=== PATIENT | male | born 1940 | race Caucasian/White ===

== ENCOUNTER 2023-05-19 00:12 | Inpatient (IN) | payer MEDICARE, OTHER, SELFPAY ==
[2023-05-19] VITALS (10 sets, daily range): BP systolic 108–132; BP diastolic 44–99; PULSE 67–112; RESP 16–24; TEMP 36.5–38.3; O2SAT 94–98; BMI 25.8; BMI 25.5
--- NOTE | 2023-05-19 00:13 | XR_ITS ---
PROCEDURE INFORMATION: Exam: XR Abdomen Exam date and time: 05/19/2023 12:48 AM Age: 82 years old Clinical indication: Other: AMS, hematemesis TECHNIQUE: Imaging protocol: Radiologic exam of the abdomen. Views: Frontal supine view of the abdomen. 1 View. COMPARISON: No relevant prior studies available. FINDINGS: Gastrointestinal tract: Gas-filled and mildly dilated segments of small bowel. Bones/joints: Unremarkable. IMPRESSION: Gas-filled and mildly dilated segments of small bowel. Partial small bowel obstruction versus ileus would be most likely.
--- NOTE | 2023-05-19 00:13 | XR_ITS ---
PROCEDURE INFORMATION: Exam: XR Chest Exam date and time: 05/19/2023 12:48 AM Age: 82 years old Clinical indication: Other: Hematemesis TECHNIQUE: Imaging protocol: Radiologic exam of the chest. Views: 1 view. COMPARISON: No relevant prior studies available. FINDINGS: Lungs: Low lung volumes with associated vascular crowding and bibasilar atelectasis. Left lower lung opacities could represent atelectasis superimposed with either aspiration or infection. Pleural spaces: Unremarkable. No pleural effusion. No pneumothorax. Heart/Mediastinum: Unremarkable. No cardiomegaly. Vasculature: Vascular calcifications. Bones/joints: Old left rib fractures. IMPRESSION: Left lower lung opacities could represent atelectasis superimposed with either aspiration or infection. Consider 6 week follow-up standing PA and lateral chest radiographs to confirm resolution.
[2023-05-19 00:26] LABS: Basophils % 0.2 % (0.1-2.0); Eosinophils % 0.3 % (0.1-12.0); Hematocrit 36.1 % (42.0-52.0); Hemoglobin 11.9 g/dL (14.1-18.0); Lymphocytes # 1.2 K/mm3 (0.7-4.5); Mean Corpuscular Hemoglobin 31.7 pg (27.0-31.2); Mean Corpuscular Volume 96.3 fl (80-94); Mean Platelet Volume 8.6 fl (7.4-10.4); Monocytes # 0.4 K/mm3 (0.1-1.0); Monocytes % 4.2 % (1.7-9.3); Neutrophils # 7.2 K/mm3 (1.8-7.8); Neutrophils % 81.4 % (37.0-80.0); Platelet Count 205 K/mm3 (142-424); Red Blood Count 3.75 M/mm3 (4.60-6.20); Red Cell Distribution Width 16.5 % (11.5-17.5); White Blood Count 8.9 K/mm3 (4.8-10.8)
[2023-05-19 00:28] LABS: Chloride 107 mmol/L (98-107); Potassium 3.4 mmoL/L (3.5-5.1); Sodium 138 mmol/L (136-145)
[2023-05-19 00:30] LABS: Blood Urea Nitrogen 8 mg/dl (9-20); Creatinine Clearance Estimated 67 mL/min (50-200); Estimated Glomerular Filt Rate 81 ml/min (>60); GFR (African American) 98 ML/MIN (>60)
[2023-05-19 00:31] LABS: Alanine Aminotransferase 28 U/L (12-78); Albumin Level 2.6 g/dl (3.5-5.0); Albumin/Globulin Ratio 0.7 (1.1-1.8); Alkaline Phosphatase 116 U/L (38-126); Anion Gap 10.4 mEq/L (5-15); Aspartate Amino Transferase 37 U/L (17-59); Bilirubin,Total 0.4 mg/dl (0.2-1.3); Calcium 7.5 mg/dl (8.4-10.2); Carbon Dioxide 24 mmol/L (22.0-30.0); Globulin 3.5 g/dL (1.3-3.2); Glucose 157 mg/dl (74-100); Total Protein,Serum 6.1 g/dl (6.3-8.2)
[2023-05-19 00:33] LABS: Activated Partial Thrombo Time 24.9 seconds (22.8-30.6); Lipase 142 U/L (23-300); Magnesium 1.7 mg/dl (1.6-2.3)
[2023-05-19 00:34] LABS: Lactic Acid 4.8 mmol/L (0.7-2.1)
[2023-05-19 00:36] LABS: Acetone, Serum (Rapid) None Detected (None Detect)
--- NOTE | 2023-05-19 00:37 | PC.NURSE ---
Reported critical lab Lactate 4.8 to at this time.
--- NOTE | 2023-05-19 00:38 | CT_ITS ---
PROCEDURE INFORMATION: Exam: CT Head Without Contrast Exam date and time: 05/19/2023 1:05 AM Age: 82 years old Clinical indication: Altered mental status/memory loss; Additional info: AMS TECHNIQUE: Imaging protocol: Computed tomography of the head without contrast. Radiation optimization: All CT scans at this facility use at least one of these dose optimization techniques: automated exposure control; mA and/or kV adjustment per patient size (includes targeted exams where dose is matched to clinical indication); or iterative reconstruction. REPORTING DATA: Count of CT and Cardiac NM exams in prior 12 months: This patient has received 0 known CTs and 0 known cardiac nuclear medicine studies in the 12 months prior to the current study. COMPARISON: No relevant prior studies available. FINDINGS: Brain: Moderate chronic brain volume loss and chronic small vessel ischemic changes. Bilateral basal ganglia calcifications. Cerebral ventricles: No ventriculomegaly. Paranasal sinuses: Visualized sinuses are unremarkable. No fluid levels. Mastoid air cells: Moderate-sized left mastoid effusion. Bones/joints: Unremarkable. No acute fracture. Soft tissues: Unremarkable. IMPRESSION: No acute intracranial findings. If there is high clinical concern for acute infarction, consider MRI for further evaluation. ASSESSMENT: ASPECTS score ([place] Stroke Program Early CT Score) is 10.
--- NOTE | 2023-05-19 00:38 | CT_ITS ---
PROCEDURE INFORMATION: Exam: CTA Chest With Contrast Exam date and time: 05/19/2023 1:09 AM Age: 82 years old Clinical indication: Other: Hematemesis; Sternal or substernal pain; Additional info: Chest pain, hematemesis TECHNIQUE: Imaging protocol: Computed tomographic angiography of the chest with contrast. Exam focused on the arteries. 3D rendering (Not supervised by radiologist): MIP and/or 3D reconstructed images were created by the technologist. Radiation optimization: All CT scans at this facility use at least one of these dose optimization techniques: automated exposure control; mA and/or kV adjustment per patient size (includes targeted exams where dose is matched to clinical indication); or iterative reconstruction. Contrast material: ISOVUE; Contrast volume: 100 ml; Contrast route: INTRAVENOUS (IV); REPORTING DATA: Count of CT and Cardiac NM exams in prior 12 months: This patient has received 0 known CTs and 0 known cardiac nuclear medicine studies in the 12 months prior to the current study. COMPARISON: CR XR CHEST PORTABLE 08/28/2022 00:48 FINDINGS: Tubes, catheters and devices: Urinary bladder is catheterized. Pulmonary arteries: Normal. No pulmonary emboli. Aorta: Unremarkable. No aortic aneurysm. No aortic dissection. Renal arteries: [id number] stenosis of the proximal renal arteries. Lungs: Unremarkable. No consolidation. No masses. Pleural spaces: Unremarkable. No pneumothorax. No pleural effusion. Heart: Unremarkable. No cardiomegaly. No pericardial effusion. Lymph nodes: Unremarkable. No enlarged lymph nodes. Adrenal glands: There is a 1.8 cm left adrenal nodule that cannot be classified as a lipid rich adenoma on this examination. Kidneys and ureters: Low attenuation renal lesions measuring up to 2 cm in diameter are incompletely characterized, but are likely cysts. No followup imaging is warranted. Stomach and bowel: Moderate sigmoid diverticulosis without diverticulitis. Appendix: Unremarkable appendix. Reproductive: Mild prostate enlargement Bones/joints: Unremarkable. No acute fracture. Soft tissues: [id number] anasarca. Other findings: Please see separate report for CT chest. IMPRESSION: 1. There is no extravasated contrast in the lumen of bowel to identify the source of GI bleed. 2. Moderate sigmoid diverticulosis without diverticulitis. 3. Urinary bladder is catheterized. Please exclude infection clinically. 4. There is a 1.8 cm left adrenal nodule that cannot be classified as a lipid rich adenoma on this examination. Consider 12 month follow-up adrenal CT. (Reference: Tl) COMMENTS: Consistent with the [employer]'s Incidental Findings Committee white paper (J Am Tl Radiol 2018): Any incidental renal lesion less than 1 cm or classified as too small to characterize, or any incidental cystic renal lesion characterized as simple-appearing, is likely benign. No follow-up imaging is recommended for these lesions per consensus recommendations based on imaging criteria. REFERENCES: Tl VELAZQUEZ, et al. Management of Incidental Adrenal Masses: A White Paper of the ACR Incidental Findings Committee. J Am Tl Radiol. 2017;14(8):8380-2632.
--- NOTE | 2023-05-19 00:39 | CT_ITS ---
PROCEDURE INFORMATION: Exam: CTA Abdomen and Pelvis With Contrast Exam date and time: 05/19/2023 1:09 AM Age: 82 years old Clinical indication: Pain and abnormal findings; Abnormal lab test; Other: Elevated lactate; Abdominal pain; Generalized; Additional info: Abd pain, hematemesis, elevated lactate TECHNIQUE: Imaging protocol: Computed tomographic angiography of the abdomen and pelvis with contrast. Exam focused on the arteries. 3D rendering (Not supervised by radiologist): MIP and/or 3D reconstructed images were created by the technologist. Radiation optimization: All CT scans at this facility use at least one of these dose optimization techniques: automated exposure control; mA and/or kV adjustment per patient size (includes targeted exams where dose is matched to clinical indication); or iterative reconstruction. Contrast material: ISOVUE; Contrast volume: 100 ml; Contrast route: INTRAVENOUS (IV); REPORTING DATA: Count of CT and Cardiac NM exams in prior 12 months: This patient has received 0 known CTs and 0 known cardiac nuclear medicine studies in the 12 months prior to the current study. COMPARISON: CR XR KUB 08/28/2022 00:48 FINDINGS: Lungs: Bilateral apical scarring. Mild scarring and atelectasis in the lower lungs. Pleural spaces: Small pleural effusions. Coronary arteries: Moderate to severe coronary arterial calcification, indicating the presence of coronary artery disease. Mediastinal space: Bowel wall thickening of the esophagus. Pulmonary arteries: No pulmonary emboli. Aorta: The aorta demonstrates severe atherosclerotic disease. Celiac trunk and mesenteric arteries: No occlusion or significant stenosis. Renal arteries: No occlusion or significant stenosis. Right iliac arteries: No occlusion or significant stenosis. Left iliac arteries: No occlusion or significant stenosis. Liver: No mass. Gallbladder and bile ducts: Unremarkable. No calcified stones. No ductal dilation. Pancreas: Unremarkable. No mass. No ductal dilation. Spleen: Unremarkable. No splenomegaly. Adrenal glands: Unremarkable. No mass. Kidneys and ureters: Unremarkable. No solid mass. No hydronephrosis. Stomach and bowel: See Mediastinal space finding. Appendix: No evidence of appendicitis. Intraperitoneal space: Unremarkable. No free air. No significant fluid collection. Lymph nodes: Unremarkable. No enlarged lymph nodes. Urinary bladder: Unremarkable. No mass. Reproductive: Unremarkable as visualized. Bones/joints: No acute fracture. Soft tissues: Unremarkable. Other findings: Stigmata of old granulomatous disease. IMPRESSION: 1. No pulmonary emboli. 2. Bowel wall thickening of the esophagus. Please correlate for evidence of esophagitis. Consider endoscopy to exclude malignancy as clinically warranted. 3. Small pleural effusions. 4. Moderate to severe coronary arterial calcification, indicating the presence of coronary artery disease. If the patient has associated symptoms, recommend management as per chest pain guidelines. If the patient is asymptomatic, consider reviewing modifiable cardiovascular risk factors and managing as per guidelines for primary prevention.
[2023-05-19 00:43] LABS: INR 1.17 (0.9-1.1); Prothrombin Time 12.5 seconds (10.1-12.5)
[2023-05-19 00:48] LABS: Troponin I 0.01 ng/ml (0.00-0.034)
[2023-05-19 00:49] LABS: T4 (Thyroxine) 11.5 ug/dl (5.53-11.0)
[2023-05-19 00:53] LABS: VBG Base Excess -7.8 mmol/L (-2.4-2.3); VBG HCO3 18.5 mmol/L (23-30); VBG Oxygen Saturation 59.1 % (50-70); VBG PCO2 37.9 mmol/L (35-51); VBG PH 7.31 mmol/L (7.31-7.41); VBG PO2 34.4 mmol/L (28-40); VBG Total CO2 19.7 mmol/L (23-27)
--- NOTE | 2023-05-19 00:55 | HMH.EDGENADL ---
Discharge Plan Disposition Patient Disposition: Admitted Clinical Impressions Clinical Impression: Metabolic acidosis with respiratory alkalosis, Elevated lactic acid level, Increased nausea and vomiting, Constipation, chronic, Enlarged prostate with urinary retention, A-fib Discharge ED Provider: Ang Trinidad General Adult HPI General Chief complaint: Nausea/Vomiting/Diarrhea Stated complaint: Vomiting Time Seen by Provider: 05/19/23 00:13 Mode of Arrival: EMS Source of Information: EMS Limitations: Altered Mental Status Description of Symptoms (Recalled from ER Triage Doc. by RN): EMS advised that pt was sent from home (previously in senior living) r/t dark colored emesis, onset today History of Present Illness HPI narrative: 82-year-old female, reported history of dementia, prostate problems with chronic Sigala last changed last week, hypothyroidism, recent admissions to outside facilities for GI bleed (scoped 2 weeks ago with no apparent source), anemia, hypernatremia, volume overload presents for dark vomitus. History obtained from patient's son and [id number]. Patient is at baseline per them, but is unable to answer any questions. They report that he actually looks better now from a mental status standpoint than he did when they got him because they have significantly cut back on his sedatives and antipsychotics. He has resided in a nursing facility since February of this year in [facility]. They were out of contact with him until recently. When they found the state he was in, they elected to take him back to their house after he was released from [facility] on of last week. He has been here in [facility] for 1 week. They are working to establish PCP care. Tonight, the patient apparently complained of indigestion and was noted to have vomiting of brown emesis. Patient is only had 1 bowel movement in the last week, it was a small smear, dark in color. Family reports that the patient's lower extremity edema has significantly improved in the last week. Failure reports that during most of his life he refused to go to the doctor. He was ambulatory as recently as february, but is no longer ambulatory. As far family are aware, they were unable to find a source of his bleeding at [facility] in the last couple of weeks, he required multiple transfusions during that time. He was also treated for hypernatremia during that admission. They report the patient had a fever of 101 on [place], 5 days ago, but resolved with Tylenol and has not recurred. Related Data Home Medications Medication Instructions Recorded Confirmed acetaminophen 500 mg tablet 500 mg PO Q6H PRN Pain 05/19/23 05/19/23 divalproex 500 mg tablet,extended 500 mg PO DAILY 05/19/23 05/19/23 release 24 hr docusate sodium 100 mg capsule 100 mg PO BID 05/19/23 05/19/23 doxazosin 4 mg tablet 4 mg PO HS 05/19/23 05/19/23 finasteride 5 mg tablet 5 mg PO DAILY 05/19/23 05/19/23 lactulose 20 gram/30 mL oral 20 g PO BID 05/19/23 05/19/23 solution levothyroxine 50 mcg tablet 50 mcg PO DAILY 05/19/23 05/19/23 lisinopril 20 mg tablet 20 mg PO DAILY 05/19/23 05/19/23 lisinopril 5 mg tablet 5 mg PO DAILY 05/19/23 05/19/23 megestrol 400 mg/10 mL (10 mL) 400 mg PO DAILY 05/19/23 05/19/23 oral suspension melatonin 3 mg capsule 3 mg PO HS PRN Insomnia 05/19/23 05/19/23 memantine 10 mg tablet 10 mg PO BID 05/19/23 05/19/23 mirtazapine 15 mg disintegrating 15 mg PO HS 05/19/23 05/19/23 tablet oxybutynin chloride 5 mg tablet 5 mg PO DAILY 05/19/23 05/19/23 pantoprazole 20 mg tablet,delayed 20 mg PO DAILY 05/19/23 05/19/23 release quetiapine 25 mg tablet 25 mg PO HS 05/19/23 05/19/23 risperidone 1 mg tablet 1 mg PO BID 05/19/23 05/19/23 rosuvastatin 10 mg tablet 10 mg PO DAILY 05/19/23 05/19/23 simethicone 80 mg chewable tablet 80 mg PO HS 05/19/23 05/19/23 Allergies Allergy/AdvReac Type Severity Reaction Status Date / Time No Known Drug Allergies Allergy
[2023-05-19 01:02] LABS: Thyroid Stimulating Hormone 7.94 uIU/mL (0.465-4.68)
--- NOTE | 2023-05-19 01:07 | PC.NURSE ---
pt to CT
--- NOTE | 2023-05-19 01:13 | PC.NURSE ---
called Jarett [facility] to attempt to get records from recent inpatient admission
--- NOTE | 2023-05-19 01:14 | PC.NURSE ---
Faxed medical release to corwin [facility]
--- NOTE | 2023-05-19 01:16 | PC.NURSE ---
pt returned from ct
--- NOTE | 2023-05-19 01:19 | ECG_ITS ---
APPROVED REPORT Exam: Resting ECG HR:93 bpm ECG Measurements Heart Rate 93 AXES QRSd 148 QRS 138 QT 348 T 160 QTc 399 Conclusion UNCERTAIN IRREGULAR RHYTHM with marked artifact ABNORMAL ECG UNCONFIRMED REPORT Electronically signed by : Prashant Ovalle MD 05/19/2023 21:38:54
--- NOTE | 2023-05-19 01:23 | ECG_ITS ---
APPROVED REPORT Exam: Resting ECG HR:102 bpm ECG Measurements Heart Rate 102 AXES QRSd 89 QRS 62 QT 300 T 77 QTc 359 Conclusion Uncertain rhythm given severe artifact UNCONFIRMED REPORT Electronically signed by : Prashant Ovalle MD 05/19/2023 21:38:18
--- NOTE | 2023-05-19 02:06 | PC.NURSE ---
on phone with hospitalist
--- NOTE | 2023-05-19 02:11 | PC.NURSE ---
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
--- NOTE | 2023-05-19 02:15 | PC.NURSE ---
OBSERVATION ADMISSION TO 212 TO SERVICE OF HOSPITALIST WITH DX OF N/V AND LACTIC ACIDOSIS.
--- NOTE | 2023-05-19 02:59 | PC.NURSE ---
pt arrived to floor via stretcher @2:55AM
--- NOTE | 2023-05-19 03:04 | EXP.HP ---
History of Present Illness *Admission Date: 05/19/23 *Reason for visit:: esophagitis *History of present illness: 82 year old male presented to [facility] ED via family for c/o dark brown vomit that started last night. PMHX of BPH, constipation, hld, htn, hypothyroidism, dementia, and recent GI bleed 2 weeks prior at [facility]. Daughter in law at bedside and states he was dx from the hospital s/p endoscope with a hemoglobin of 8. The Daughter in law and Son took pt from hospital and brought to their home were he has been cared for by the daughter. Prior to his hospitalization at [facility] the pt was in a half-way. The family has no interest in pt returning to a half-way. The ED work up consisted of hypokalemia of 3.4, BUN of 8, lactate of 4.8, and TSH of 7.94. A CT of his abdomen was obtained in the ED and reveals thickening in the esophagus and sigmoid diverticulosis. no free air or other abnormalities in the abd. The ED physician consulted the hospitalist team for further medical management. I admitted the pt to the medical surgical floor. The pt arrives confused and still spitting up dark secretions. The pt is not febrile, or demonstrate a luekocyotsis. Will repeat lactate and provide gentle hydration. I have placed a general surgery consult for the morning. [facility] Disclaimer: The information contained in this section may have been updated after the patient was seen, as this information can be updated by other users. Medical History (Updated 05/19/23 @ 03:40 by DIYA Nichole) Chronic indwelling Sigala catheter Impaired mobility Social History (Updated 05/19/23 @ 03:34 by Dunia Saunders RN) Smoking Status: Never smoker alcohol intake: never current occupational status: retired Travel in the last 8 weeks: None Review of Systems *Cardiovascular Cardiovascular: Reports system reviewed and no additional complaints, except as documented *Respiratory Respiratory: Reports system reviewed and no additional complaints, except as documented *Gastrointestinal Gastrointestinal: Reports coffee ground emesis and Reports vomiting *Genitourinary Genitourinary: Reports difficulty with ejaculations *Musculoskeletal Musculoskeletal: Reports system reviewed and no additional complaints, except as documented *Neurologic Neurologic: Reports system reviewed and no additional complaints, except as documented Meds Home Medications and Allergies Home Medications Medication Instructions Recorded Confirmed Type acetaminophen 500 mg tablet 500 mg PO Q6H PRN Pain 05/19/23 05/19/23 History bisacodyl 5 mg tablet,delayed 5 mg PO DAILY PRN Constipation 05/19/23 05/19/23 History release divalproex 500 mg tablet,extended 500 mg PO BID 05/19/23 05/19/23 History release 24 hr docusate sodium 100 mg capsule 100 mg PO BID PRN Constipation 05/19/23 05/19/23 History doxazosin 4 mg tablet 4 mg PO HS 05/19/23 05/19/23 History finasteride 5 mg tablet 5 mg PO DAILY 05/19/23 05/19/23 History lactulose 20 gram/30 mL oral 20 g PO DAILY 05/19/23 05/19/23 History solution levothyroxine 50 mcg tablet 50 mcg PO DAILY 05/19/23 05/19/23 History lisinopril 20 mg tablet 20 mg PO DAILY 05/19/23 05/19/23 History megestrol 400 mg/10 mL (10 mL) 400 mg PO BID malnutrition 05/19/23 05/19/23 History oral suspension melatonin 3 mg capsule 3 mg PO HS Insomnia 05/19/23 05/19/23 History memantine 10 mg tablet 10 mg PO BID 05/19/23 05/19/23 History mirtazapine 15 mg disintegrating 15 mg PO HS 05/19/23 05/19/23 History tablet oxybutynin chloride 5 mg tablet 5 mg PO DAILY 05/19/23 05/19/23 History pantoprazole 20 mg tablet,delayed 20 mg PO DAILY 05/19/23 05/19/23 History release quetiapine 25 mg tablet 25 mg PO HS 05/19/23 05/19/23 History rosuvastatin 10 mg tablet 10 mg PO DAILY 05/19/23 05/19/23 History sennosides 8.6 mg tablet 8.6 mg PO BID PRN Constipation 05/19/23 05/19/23 History simethicone 80 mg chewable tablet 80 mg PO QID PRN indeg
--- NOTE | 2023-05-19 03:58 | PC.WOUNDNOTE ---
Stage 1 noted on coccyx. Measured to be approximately 0.4cm in circumference. Prophylactic dressing applied to prevent further breakdown
[2023-05-19 04:01] LABS: Reflex Lactic Add Lactic Reflex
[2023-05-19 04:06] LABS: Basophils % 0.2 % (0.1-2.0); Eosinophils # 0.1 K/mm3 (0.0-0.4); Eosinophils % 1.2 % (0.1-12.0); Hematocrit 31.9 % (42.0-52.0); Lymphocytes # 1.2 K/mm3 (0.7-4.5); Lymphocytes % 12.7 % (10-50); Mean Corpuscular HGB Conc 32.6 g/dL (31.8-35.4); Mean Corpuscular Volume 95.1 fl (80-94); Mean Platelet Volume 8.9 fl (7.4-10.4); Monocytes # 0.6 K/mm3 (0.1-1.0); Monocytes % 6.7 % (1.7-9.3); Neutrophils # 7.2 K/mm3 (1.8-7.8); Neutrophils % 79.2 % (37.0-80.0); Platelet Count 181 K/mm3 (142-424); Red Blood Count 3.36 M/mm3 (4.60-6.20); Red Cell Distribution Width 16.3 % (11.5-17.5); White Blood Count 9.1 K/mm3 (4.8-10.8)
[2023-05-19 04:15] LABS: Hemoglobin 10.4 g/dL (14.1-18.0)
[2023-05-19 04:16] LABS: Chloride 110 mmol/L (98-107)
[2023-05-19 04:17] LABS: Lactic Acid Follow Up (RFLX 1) 5.3 mmol/L (0.7-2.1); Potassium 3.4 mmoL/L (3.5-5.1); Sodium 137 mmol/L (136-145)
[2023-05-19 04:20] LABS: Anion Gap 11.4 mEq/L (5-15); Blood Urea Nitrogen 9 mg/dl (9-20); Calcium 7.3 mg/dl (8.4-10.2); Carbon Dioxide 19 mmol/L (22.0-30.0); Creatinine Clearance Estimated 66 mL/min (50-200); Estimated Glomerular Filt Rate 81 ml/min (>60); GFR (African American) 98 ML/MIN (>60); Glucose 140 mg/dl (74-100)
[2023-05-19 04:30] LABS: Microscopic, Urine URINE MICROSCOPIC (MICROSCOPIC)
[2023-05-19 04:37] LABS: Troponin I < 0.01 ng/ml (0.00-0.034)
[2023-05-19 04:44] LABS: Appearance,Urine CLEAR (Clear); Blood, Urine Negative (Negative); Color,Urine YELLOW (Yellow); Glucose,Urine (UA) Negative (Negative); Ketones,Urine Negative (Negative); Leukocyte Esterase,Urine Negative (Negative); Nitrate,Urine Negative (Negative); PH,Urine 6.5 (5.0-8.5); Protein,Urine TRACE (Negative); Specific Gravity, Urine <= 1.005 (1.005-1.030); Urobilinogen,Urine >=8.0 EU/dl (0.2)
[2023-05-19 04:45] LABS: Bilirubin,Urine Negative (Negative)
[2023-05-19 04:59] LABS: Bacteria,Urine 1+ /lpf
[2023-05-19 06:25] LABS: Basophils % 0.2 % (0.1-2.0); Eosinophils # 0.1 K/mm3 (0.0-0.4); Eosinophils % 0.8 % (0.1-12.0); Hematocrit 29.5 % (42.0-52.0); Hemoglobin 9.9 g/dL (14.1-18.0); Lymphocytes % 21.5 % (10-50); Mean Corpuscular HGB Conc 33.6 g/dL (31.8-35.4); Mean Corpuscular Volume 95.3 fl (80-94); Mean Platelet Volume 8.5 fl (7.4-10.4); Monocytes # 0.5 K/mm3 (0.1-1.0); Monocytes % 5.7 % (1.7-9.3); Neutrophils # 6.8 K/mm3 (1.8-7.8); Neutrophils % 71.8 % (37.0-80.0); Platelet Count 184 K/mm3 (142-424); Red Cell Distribution Width 16.5 % (11.5-17.5); White Blood Count 9.4 K/mm3 (4.8-10.8)
[2023-05-19 06:34] LABS: Lactic Acid 3.6 mmol/L (0.7-2.1)
--- NOTE | 2023-05-19 07:42 | P.CONPHA_ITS ---
Pharmacy Intervention Comments: USED LIST FROM [facility] VISIT ON 05/12/23 TO VERIFY HOME MEDICAITON LIST
--- NOTE | 2023-05-19 07:42 | HMH.PHAINT1 ---
Pharmacy Intervention Comments: USED LIST FROM [facility] VISIT ON 05/12/23 TO VERIFY HOME MEDICAITON LIST
--- NOTE | 2023-05-19 10:54 | HMH.PTWOUND ---
Rehab Inpt Wound Evaluation Rehab IP Wound Evaluation Start: 05/19/23 04:44 Freq: ONCE Status: Active Protocol: Document 05/19/23 10:49 JACKELINE (Rec: 05/19/23 10:53 PHOSTEFFANIE [id number]) Rehab PT Wound Assessment Subjective Subjective 82 yowm adm to [facility] with nausea /vomiting and lactic acidosis. PMHX of BPH, constipation, hld, htn, hypothyroidism, dementia, and recent GI bleed. 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 He also presents with small area of redness on his R buttock in the area of the sacrum. Wound Sacrum Wound Type Pressure Ulcer Is This a Chronic Wound Yes Wound Staging Stage I Query Text:Stage I - Unbroken, red skin, no blanching. Stage II - Skin broken, superficial skin loss involving epidermis alone or also dermis. Partial loss of skin layers. Stage III - Pressure area involves epidermis, dermis and subcutaneous tissue, full thickness skin loss. Stage IV - Pressure area involves epidermis, subcutaneous tissue, bone and other supportive tissue. Full thickness skin loss with extensive destruction of underlying tissue and structures. Wound Length (cm) 0.5 Wound Width (cm) 0.5 Wound Margins Description Indistinct Drainage Amount None Primary Dressing Composite Plan/Recommendation Comment Pt has no open skin at this time and area is covered appropriately. Continue pressure relief per protocols. Eval Complexity Eval Charge Codes 23068 - High Complexity PHYSICIAN CERTIFICATION: I certify the specified therapy services for Kevin Howard are required, authorized, and reviewed every 30 days.
--- NOTE | 2023-05-19 10:57 | HMH.OTEV ---
OT Inpatient Evaluation Rehab OT IP Evaluation Start: 05/19/23 10:21 Freq: ONCE Status: Active Protocol: Document [facility]/19/23 10:[facility] (Rec: 05/19/23 10:56 [facility] [id number]) Rehab OT IP Assessment Subjective History Pt resting in bed on arrival. Pt kept eyes closed during evaluation and would not answer any orientation questions. Therapist asked patient multiple times to open his eyes and he would reply yes but would not open them. All information about his previous level of functioning comes from ER reports. Family was not present to provide any information about previous level of functioning. ER documentation: 82-year-old female, reported history of dementia, prostate problems with chronic Sigala last changed last week, hypothyroidism, recent admissions to outside facilities for GI bleed ( scoped 2 weeks ago with no apparent source), anemia, hypernatremia, volume overload presents for dark vomitus. History obtained from patient' s son and [id number]. Patient is at baseline per them, but is unable to answer any questions. They report that he actually looks better now from a mental status standpoint than he did when they got him because they have significantly cut back on his sedatives and antipsychotics. He has resided in a nursing facility since February of this year in [facility]. They were out of contact with him until recently. When they found the state he was in, they elected to take him back to their house after he was released from [facility] on
--- NOTE | 2023-05-19 10:58 | HMH.PTEV ---
Physical Therapy Evaluation Rehab PT IP Evaluation Start: 05/19/23 10:21 Freq: ONCE Status: Active Protocol: Document 05/19/23 10:54 JACKELINE (Rec: 05/19/23 10:58 JACKELINE [id number]) Subjective/History History History 82 yowm adm to [facility] with nausea /vomiting and lactic acidosis. PMHX of BPH, constipation, hld, htn, hypothyroidism, dementia, and recent GI bleed. He is apparently bedfast at baseline and was in SN[facility] until ~ 1-2 wks ago. Subjective Subjective Pt does not open eyes during evaluation and shows minimal command following with limited speech. New diagnosis of cancer in past 12 No months? Rehab PT IP Eval Objective Appearance Patient Behavior Confused Difficulty following instructions severe Speech Pattern Clear Ambulation Patient Able to Ambulate No Balance Ability to Arise Unable Transfers Bed Transfer Ability Total/Dependent (100%) Rehab PT IP prob,goals,plan Problems Date of Evaluation: 05/19/23 PT IP Problems Bed Mobility,Transfers Rehab Potential Rehab Potential Fair Plan PT Intervention Plan Bed Mobility,Transfers, Therapeutic Exercise PT Plan Frequency Daily Duration LOS Discharge Goals Bed Transfer Ability Maximum x 2 (75% assist) Discharge Plan PT Discharge Plan Pt is currently most appropriate for [facility] SN[facility] placement once medically stable for d/c. However, if family wishes to return pt to their care at [facility] as previous he will need 24 hr assist at all times. Eval Complexity Eval Charge Codes 01105 - High Complexity PHYSICIAN CERTIFICATION: I certify the specified therapy services for Kevin Howard are required, authorized, and reviewed every 30 days.
--- NOTE | 2023-05-19 11:34 | SW/DCPLANNER ---
Addendum entered by Kendra Dutton 05/25/23 13:08: Delia w/ [facility] stated that services will begin for patient this week. Addendum entered by [facility] 05/25/23 10:07: Patient will discharge home today. Patient information/order will be faxed to [facility] and [facility] set up DME at home yesterday. Addendum entered by [facility] 05/24/23 14:55: Patient information/order has been faxed to [facility] for BSC, hospital bed and wheelchair. Addendum entered by [facility] 05/24/23 14:16: After lengthy discussion w/ MD, son and daughter in law the plan for this patient is to return home w/ family and home health services. Patient/family are agreeable to home health services w/ [facility]. Patient/family also requested DME at home including: hospital bed, wheelchair, bedside commode and possibly a lift. Patient/family are fine w/ using [facility] for DME. Once DME is ordered/set up the plan is for patient to discharge home. I will fax patient information to [facility] at time of discharge. Addendum entered by [facility] 05/24/23 14:11: Daughter in law (Sara) contact number is [phone] Addendum entered by Kendra Dutton 05/19/23 12:26: Son and daughter in law (Sara) called back to further discuss patient's situation. Per Sara patient was residing at [facility] since last February. Patient was recently admitted to [facility] and discharged from there on 05/12/23 to [facility] in [place]. Per Sara patient does have dementia but was doing well at home and able to communicate. Patient is established w/ [facility] [place]. Sara stated that the [facility] is in the process of ordering patient a hospital bed at home. [facility]bra's plans are for patient to discharge back to their home in [place] with home health services once medically stable for discharge. I have asked Family Law Attorney to please request records from [facility]. Discharge date is unknown at this time. I will continue to follow up. Original Note: Due to patient not being able to answer questions I attempted to get in contact w/ his son listed in demographics (Fer): no answer at this time/VM left.
--- NOTE | 2023-05-19 13:34 | EXP.SURG.CON ---
History of Present Illness *Admission Date: 05/19/23 *Reason for visit:: Esophagitis *History of present illness: Patient is an 82-year-old male resident of [facility] with reported history of dementia, previously retirement patient, recently admitted to outside facility on 04/27/23 through 05/04/23 after presentation with nausea, vomiting, coffee-ground hematemesis. At that time CT scan revealed mildly prominent small bowel with fluid consistent with ileus or partial bowel obstruction. It sounds as though during that admission there was consideration of possible gastrostomy tube placement as he had dysphagia and did not pass swallowing study. However this improved through his hospitalization and did not require gastrostomy tube. Apparently the patient did have some transfusion. He had been a resident in a retirement since February of this year in [facility] until this recent outside facility hospitalization. He had been discharged from outside facility and then readmitted shortly thereafter. Exact details of his hospitalizations are unclear after review of outside medical records however apparently he did undergo transfusion and possibly had upper endoscopy. Since discharge he has subsequently been residing with [facility]. Patient had developed symptoms of indigestion and vomiting of brown emesis. He presented to the emergency department. He was evaluated. He was found to have lactate of 4.8. He underwent CTA of the abdomen and pelvis which revealed no evidence of any active identifiable bleeding source. Patient was admitted to the hospitalist service. Surgical consultation was obtained this morning. Patient had reported prior history of tobacco abuse decades ago as well as heavy alcohol consumption. [facility] Disclaimer: The information contained in this section may have been updated after the patient was seen, as this information can be updated by other users. Medical History (Updated 05/19/23 @ 03:40 by DIYA Nichole) Chronic indwelling Sigala catheter Impaired mobility Social History (Updated 05/19/23 @ 03:34 by Dunia Saunders RN) Smoking Status: Never smoker alcohol intake: never current occupational status: retired Travel in the last 8 weeks: None Review of Systems *Neurologic Neurologic: Reports system reviewed and no additional complaints, except as documented Meds Home Medications and Allergies Home Medications Medication Instructions Recorded Confirmed Type acetaminophen 500 mg tablet 500 mg PO Q6HP PRN Mild Pain 05/19/23 05/19/23 History (Scale Score 1-4) bisacodyl 5 mg tablet,delayed 5 mg PO DAILYP PRN Constipation 05/19/23 05/19/23 History release divalproex 500 mg tablet,extended 500 mg PO BID 05/19/23 05/19/23 History release 24 hr docusate sodium 100 mg capsule 100 mg PO BIDP PRN Constipation 05/19/23 05/19/23 History doxazosin 4 mg tablet 4 mg PO HS 05/19/23 05/19/23 History finasteride 5 mg tablet 5 mg PO DAILY 05/19/23 05/19/23 History lactulose 20 gram/30 mL oral 10 g PO DAILYP PRN Constipation 05/19/23 05/19/23 History solution levothyroxine 50 mcg tablet 50 mcg PO DAILY 05/19/23 05/19/23 History lisinopril 20 mg tablet 20 mg PO DAILY 05/19/23 05/19/23 History megestrol 400 mg/10 mL (10 mL) 400 mg PO BID malnutrition 05/19/23 05/19/23 History oral suspension melatonin 3 mg capsule 6 mg PO HS Insomnia 05/19/23 05/19/23 History memantine 10 mg tablet 10 mg PO BID 05/19/23 05/19/23 History mirtazapine 15 mg tablet (Remeron) 15 mg PO HS 05/19/23 05/19/23 History oxybutynin chloride 5 mg tablet 5 mg PO DAILY 05/19/23 05/19/23 History pantoprazole 20 mg tablet,delayed 20 mg PO DAILY 05/19/23 05/19/23 History release quetiapine 25 mg tablet 25 mg PO HS 05/19/23 05/19/23 History risperidone 1 mg tablet (Risperdal) 1 mg PO BID 05/19/23 05/19/23 History rosuvastatin 10 mg tablet 10 mg PO DAILY 05/19/23 05/19/23 History sennosides 8.6 mg tablet 8.6 mg PO
--- NOTE | 2023-05-19 16:58 | PC.NURSE ---
Vancomycin pharmacy consult called at 0931.
--- NOTE | 2023-05-19 17:15 | XR_ITS ---
PROCEDURE INFORMATION: Exam: XR Chest Exam date and time: 05/19/2023 5:31 PM Age: 82 years old Clinical indication: Other: Pna? TECHNIQUE: Imaging protocol: Radiologic exam of the chest. Views: 1 view. COMPARISON: CR XR CHEST PORTABLE 05/19/2023 12:48 AM, chest CT angiogram 05/19/2023 at 1:12 a.m.. FINDINGS: Lungs: Low lung volumes. Pulmonary vasculature grossly normal. Mild airspace disease in the lung bases, left greater than right, probably representing atelectasis given the comparison chest CT angiogram appearance at 1:12 a.m. although can not exclude developing basilar pneumonia. Pleural spaces: Small left basilar pleural effusion with costophrenic angle blunting. The small right basilar effusion seen on recent CT is not well seen with current radiographic technique. No pneumothorax. Heart/Mediastinum: Heart size normal. No tracheal/mediastinal shift. Bones/joints: No acute osseous abnormalities are identified. IMPRESSION: 1. Low lung volumes with decreased pulmonary expansion compared to prior imaging. 2. Bilateral basilar airspace disease, left greater than right, which is stable to slightly increased. Favor basilar atelectasis based on the appearance on recent chest CT angiogram although developing pneumonia not excluded. 3. Small left basilar pleural effusion. Small right basilar pleural effusion seen on CT is not well demonstrated with current technique.
--- NOTE | 2023-05-19 18:53 | PC.NURSE ---
Patient has had no nausea or vomiting througout shift. Patient spiked fever of [address] Pinto informed. Abx ordered
[2023-05-20 04:00] VITALS: BP 113/45; PULSE 91; RESP 18; TEMP 36.7; O2SAT 96; BMI 25.5
--- NOTE | 2023-05-20 05:26 | PC.NURSE ---
Patient has had a goodn ight. Has been able to rest most of the night. Patient has been turned every 2 hours to help the stage 1 on his coccyx. remains with a the chronic chavez. Did have 1 BM last night. Patient has not been orientated at all tonight. no other issues noted
[2023-05-20 06:53] LABS: Basophils % 0.1 % (0.1-2.0); Eosinophils # 0.2 K/mm3 (0.0-0.4); Eosinophils % 2.6 % (0.1-12.0); Hemoglobin 8.6 g/dL (14.1-18.0); Lymphocytes # 2.2 K/mm3 (0.7-4.5); Mean Corpuscular HGB Conc 33.3 g/dL (31.8-35.4); Mean Corpuscular Hemoglobin 31.8 pg (27.0-31.2); Mean Corpuscular Volume 95.6 fl (80-94); Mean Platelet Volume 8.5 fl (7.4-10.4); Monocytes # 0.5 K/mm3 (0.1-1.0); Monocytes % 6.6 % (1.7-9.3); Neutrophils # 5.4 K/mm3 (1.8-7.8); Neutrophils % 64.7 % (37.0-80.0); Platelet Count 201 K/mm3 (142-424); Red Blood Count 2.72 M/mm3 (4.60-6.20); Red Cell Distribution Width 16.6 % (11.5-17.5); White Blood Count 8.3 K/mm3 (4.8-10.8)
[2023-05-20 07:06] LABS: Anion Gap 10.2 mEq/L (5-15); Blood Urea Nitrogen 11 mg/dl (9-20); Carbon Dioxide 20 mmol/L (22.0-30.0); Chloride 111 mmol/L (98-107); Creatinine Clearance Estimated 66 mL/min (50-200); Estimated Glomerular Filt Rate 81 ml/min (>60); GFR (African American) 98 ML/MIN (>60); Glucose 88 mg/dl (74-100); Potassium 3.2 mmoL/L (3.5-5.1); Sodium 138 mmol/L (136-145)
--- NOTE | 2023-05-20 07:51 | EXP.PHA.CONS ---
Pharmacy Consult Date: 05/20/23 Time: 07:53 Referring provider: DR TATE Reason for Consult:: VANCOMYCIN DOSING CONSULT Allergies Allergy/AdvReac Type Severity Reaction Status Date / Time No Known Drug Allergies Allergy Verified 05/19/23 00:42 Home Medications Medication Instructions Recorded Confirmed Type acetaminophen 500 mg tablet 500 mg PO Q6HP PRN Mild Pain 05/19/23 05/19/23 History (Scale Score 1-4) bisacodyl 5 mg tablet,delayed 5 mg PO DAILYP PRN Constipation 05/19/23 05/19/23 History release divalproex 500 mg tablet,extended 500 mg PO BID 05/19/23 05/19/23 History release 24 hr docusate sodium 100 mg capsule 100 mg PO BIDP PRN Constipation 05/19/23 05/19/23 History doxazosin 4 mg tablet 4 mg PO HS 05/19/23 05/19/23 History finasteride 5 mg tablet 5 mg PO DAILY 05/19/23 05/19/23 History lactulose 20 gram/30 mL oral 10 g PO DAILYP PRN Constipation 05/19/23 05/19/23 History solution levothyroxine 50 mcg tablet 50 mcg PO DAILY 05/19/23 05/19/23 History lisinopril 20 mg tablet 20 mg PO DAILY 05/19/23 05/19/23 History megestrol 400 mg/10 mL (10 mL) 400 mg PO BID malnutrition 05/19/23 05/19/23 History oral suspension melatonin 3 mg capsule 6 mg PO HS Insomnia 05/19/23 05/19/23 History memantine 10 mg tablet 10 mg PO BID 05/19/23 05/19/23 History mirtazapine 15 mg tablet (Remeron) 15 mg PO HS 05/19/23 05/19/23 History oxybutynin chloride 5 mg tablet 5 mg PO DAILY 05/19/23 05/19/23 History pantoprazole 20 mg tablet,delayed 20 mg PO DAILY 05/19/23 05/19/23 History release quetiapine 25 mg tablet 25 mg PO HS 05/19/23 05/19/23 History risperidone 1 mg tablet (Risperdal) 1 mg PO BID 05/19/23 05/19/23 History rosuvastatin 10 mg tablet 10 mg PO DAILY 05/19/23 05/19/23 History sennosides 8.6 mg tablet 8.6 mg PO BIDP PRN Constipation 05/19/23 05/19/23 History simethicone 80 mg chewable tablet 80 mg PO QIDP PRN indegestion 05/19/23 05/19/23 History New Prescriptions to Start Prescriptions: Height: 1.78 m Weight: 81.057 kg Laboratory Results:: Laboratory Results - last 24 hr 05/19/23 10:45: Lactate 3.0 H 05/20/23 06:40: WBC 8.3, RBC 2.72 L, Hgb 8.6 L, Hct 26.0 L, MCV 95.6 H, MCH 31.8 H, MCHC 33.3, RDW 16.6, Plt Count 201, MPV 8.5, Neut % (Auto) 64.7, Lymph % (Auto) 26.0, [place] % (Auto) 6.6, Eos % (Auto) 2.6, Baso % (Auto) 0.1, Neut # (Auto) 5.4, Lymph # (Auto) 2.2, [place] # (Auto) 0.5, Eos # (Auto) 0.2, Baso # (Auto) 0.0 Medical History: Medical History (Updated 05/19/23 @ 03:40 by [facility] Chronic indwelling Sigala catheter Impaired mobility Assessment and Plan Assessment and plan all Dx Assessment and Plan for all problems:: Pharmacokinetic dosing service Objective: Age: 82 yo Serum creatinine: 0.9 mg/dL Height: 70.1 Inches Weight (kg): 81.057 Diagnosis: SEPSIS Assessment: IBW (kg): 73.23 Dosing wt(kg): 81.057 Estimated Creatinine clearance (ml/min): 66.7 CRCL method: Cockcroft and Gault using ibw(default). Drug selected: Vancomycin Loading dose (mg): 1750 MG Vd (liters): 60.8 (factor used: 0.75 L/kg) Bladimir (hr-1): 0.060 Half life (hrs): 11.55 CLvanco=?? 3.648 L/hr Recommended dose: 1500 mg Interval: 18 hrs Infusion time (hrs): 2.0 Predicted peak (mcg/mL): 35.2 Predicted trough (mcg/mL): 13.48 Total body weight is being used for vancomycin dosing. Recommendations: Give Vancomycin 1500 mg q 18 hrs with an expected Cpeak of 35.2 mcg/ml and an expected Ctrough of 13.48 mcg/ml TO START 05/20/23 AT 12:00, PATIENT RECEIVED ONE-TIME LOADING DOSE VANCOMYCIN 1750 MG IV 05/19/23 AT 18:15. AUC 0-24 /CAPRICE Data: CAPRICE 0.5 mcg/mL:?? AUC/CAPRICE:? 1096.5 CAPRICE 1.0 mcg/mL:?? AUC/CAPRICE:? 548.2 --------- CAPRICE 1.5 mcg/mL:?? AUC/CAPRICE:? 365.5 CAPRICE 2.0 mcg/mL:?? AUC/CAPRICE:?
[2023-05-20 08:00] VITALS: BP 94/53; PULSE 83; RESP 20; TEMP 36.6; O2SAT 98
--- NOTE | 2023-05-20 08:31 | PC.NURSE ---
primary tech note: nurse notified about 0800 vital signs
--- NOTE | 2023-05-20 08:56 | PC.NURSE ---
COURTESY TECH NOTE; ROUNDED ON PT 0810, PT SLEEPING AT THIS TIME. CALL LIGHT WITHIN REACH, NO FURTHER REQUESTS Galilea SULLIVAN, REAGAN
--- NOTE | 2023-05-20 10:25 | XR_ITS ---
FINAL REPORT TECHNIQUE: Single view chest CLINICAL HISTORY: PNA? COMPARISON: 05/19/2023 FINDINGS: A single view of the chest was obtained. The heart and mediastinum are within normal limits. There is a right base opacity consistent with pneumonia. There is no pneumothorax. Osseous structures are unremarkable. IMPRESSION: Right base opacity consistent with pneumonia. Reviewed, Interpreted and Dictated by Costa Connelly III, MD Transcribed by Latricia Lynn Authenticated and [facility]
[2023-05-20 13:02] LABS: Lactic Acid 1.5 mmol/L (0.7-2.1)
--- NOTE | 2023-05-20 13:24 | P.PN_ITS ---
Subjective Narrative: No issues. Patient currently undergoing bedside speech therapy swallowing evaluation. Exam Data for Last 24 hours Vital signs and Labs for Last 24 Hours: Temp Pulse Resp BP Pulse Ox O2 Del Method 97.8 F 83 20 94/53 L 98 Room Air 05/20/23 08:00 05/20/23 08:00 05/20/23 08:00 05/20/23 08:00 05/20/23 08:00 05/20/23 11:00 Laboratory Results - last 24 hr 05/20/23 06:40: WBC 8.3, RBC 2.72 L, Hgb 8.6 L, Hct 26.0 L, MCV 95.6 H, MCH 31.8 H, MCHC 33.3, RDW 16.6, Plt Count 201, MPV 8.5, Neut % (Auto) 64.7, Lymph % (Auto) 26.0, [place] % (Auto) 6.6, Eos % (Auto) 2.6, Baso % (Auto) 0.1, Neut # (Auto) 5.4, Lymph # (Auto) 2.2, [place] # (Auto) 0.5, Eos # (Auto) 0.2, Baso # (Auto) 0.0, Sodium 138, Potassium 3.2 L, Chloride 111 H, Carbon Dioxide 20 L, Anion Gap 10.2, BUN 11, Creatinine 0.90, Estimated Creat Clear 66, Estimated GFR 81, Est GFR ( Amer) 98, Glucose 88, Calcium 7.0 L 05/20/23 12:30: Lactate 1.5 I & O for Last 24 hours: Intake & Output 05/18/23 05/19/23 05/20/23 05/21/23 11:59 11:59 11:59 11:59 Intake Total 0 / 0 0 / 0 Output Total 725 / 725 300 / 300 Balance -725 / -725 -300 / -300 Weight 178 lb 7.004 oz 178 lb 11.2 oz Constitutional Constitutional: no acute distress Progress Note: A&P Assessment and plan (1) Increased nausea and vomiting: Status: Acute Assessment and Plan Assessment and Plan for All Diagnoses:: I reviewed his outside endoscopy report and he did have significant erosive esophagitis. Patient has had some decrease in hemoglobin however this could be delusional given the potential dehydration upon admission. No definite evidence of active GI bleed. At this time would not pursue urgent upper endoscopy. Await speech therapy evaluation.
--- NOTE | 2023-05-20 13:52 | HMH.SLDYSPHA ---
Speech & Language Evaluation Speech/Language Dysphagia Evaluation Start: 05/20/23 13:24 Freq: ONCE Status: Active Protocol: Document 05/20/23 13:27 VERONICA (Rec: 05/20/23 13:52 [facility] [id number]) Dysphagia Assess/Goals/Plan Assessment Date of Evaluation: 05/20/23 Evaluation Type Initial Certification Assessment/Problems Hx of aspiration/dysphagia per MD order. Does Patient Qualify for Service Yes Qualify/Failure Comment Based on clinical observations made during the CSE, Mr. Howard would benefit from skilled speech therapy services to f/u with diet tolerance of nectar thick/ puree when given frequent maximal verbal and frequent maximal tactical cues to utilize safe swallowing strategies in order to increase ability to safely swallow the least restrictive diet. Recommendations PHYSICIAN CERTIFICATION: The specified therapy services are required, authorized, and reviewed every 30 days. Pt will be seen # times/week 3 for # weeks 4 Diet Recommendations Pureed Liquid Type Recommendations [place] Consistency SL Swallow Guidelines Assist w/all meals,Alt bite w/ sip thru meal,High aspiration risk,Chk mough for pocketing, Crush meds as allowed*,Oral care pre/post meals Crush Meds Crush all meds Dysphagia Swallow Precautions/Strategies Sitting Upright (90 deg),No Straw,Liquids from Spoon,Small Bites and Sips,Alternate Liquids/Solids Place Food on Either side of Mouth Plan Anticipate reaching STG in # weeks 2 Anticipate reaching LTG in # weeks 4 Pt/Guardian verbally ack understanding Yes of dx/prognosis/goals G -code Required No STG-Other Comment/Non-Specific The patient will complete an instrumental evaluation as cognitive-linguistic status allows in order to evaluate swallowing safety. The patient will complete trials of ice chips without overt s/sx of aspiration in 80 % of trials given minimal
--- NOTE | 2023-05-20 15:48 | EXP.PN ---
Subjective *Date: 05/20/23 *Time: 15:48 Interval history: see at bedside, not holding conversations, is not much verbal at baseline, he appears comfortable in bed Exam Data for Last 24 hours Vital signs and Labs for Last 24 Hours: Temp Pulse Resp BP Pulse Ox O2 Del Method 97.8 F 83 20 94/53 L 98 Room Air 05/20/23 08:00 05/20/23 08:00 05/20/23 08:00 05/20/23 08:00 05/20/23 08:00 05/20/23 15:00 Laboratory Results - last 24 hr 05/20/23 06:40: WBC 8.3, RBC 2.72 L, Hgb 8.6 L, Hct 26.0 L, MCV 95.6 H, MCH 31.8 H, MCHC 33.3, RDW 16.6, Plt Count 201, MPV 8.5, Neut % (Auto) 64.7, Lymph % (Auto) 26.0, [place] % (Auto) 6.6, Eos % (Auto) 2.6, Baso % (Auto) 0.1, Neut # (Auto) 5.4, Lymph # (Auto) 2.2, [place] # (Auto) 0.5, Eos # (Auto) 0.2, Baso # (Auto) 0.0, Sodium 138, Potassium 3.2 L, Chloride 111 H, Carbon Dioxide 20 L, Anion Gap 10.2, BUN 11, Creatinine 0.90, Estimated Creat Clear 66, Estimated GFR 81, Est GFR ( Amer) 98, Glucose 88, Calcium 7.0 L 05/20/23 12:30: Lactate 1.5 I & O for Last 24 hours: Intake & Output 05/17/23 05/18/23 05/19/23 05/20/23 23:59 23:59 23:59 23:59 Intake Total 0 / 0 0 / 0 Output Total 725 / 725 300 / 300 Balance -725 / -725 -300 / -300 Weight 80.938 kg 81.057 kg Constitutional Constitutional: no acute distress *Routine HEENT Exam Head: Present normocephalic Eye: Present EOMI and PERRL ENT: Present mucous membranes moist *Routine Neck Exam Neck: Present supple; Absent lymphadenopathy *Routine Respiratory Exam Respiratory: Present CTA bilaterally *Routine Cardiovascular Exam Cardiovascular: Present RRR *Routine Abdominal Exam Abdominal: Present soft and normoactive bowel sounds; Absent tenderness *Routine Extremities Exam Extremities: Present edema; Absent cyanosis or clubbing *Routine Skin Exam Skin: Present warm; Absent rash *Routine Neurological Exam Neurological: Present alert and oriented X3 Assessment and Plan *Assessment and plan (1) Elevated lactic acid level: Status: Acute Category: Medical Code(s): R79.89 - Other specified abnormal findings of blood chemistry (2) Increased nausea and vomiting: Status: Acute Category: Medical Code(s): R11.2 - Nausea with vomiting, unspecified (3) A-fib: Status: Acute Category: Medical Code(s): I48.91 - Unspecified atrial fibrillation (4) HLD (hyperlipidemia): Status: Acute Category: Medical Code(s): E78.5 - Hyperlipidemia, unspecified (5) HTN (hypertension): Status: Acute Category: Medical Code(s): I10 - Essential (primary) hypertension (6) BPH (benign prostatic hyperplasia): Status: Acute Category: Medical Code(s): N40.0 - Benign prostatic hyperplasia without lower urinary tract symptoms (7) Seizure: Status: Acute Category: Medical Code(s): R56.9 - Unspecified convulsions (8) Esophagitis: Status: Acute Category: Medical Code(s): K20.90 - Esophagitis, unspecified without bleeding (9) Dementia: Status: Acute Category: Medical Code(s): F03.90 - Unspecified dementia, unspecified severity, without behavioral disturbance, psychotic disturbance, mood disturbance, and anxiety Plan Patient is a 82-year-old male who presented to hospital due to nausea and brown-colored vomiting suspicious for bleeding. Assessment Esophagitis Hematemesis Lactic acidosis Pneumonia likely due to suspected aspiration Hypertension Hyperlipidemia BPH History of dementia Hypothyroidism Seizures Plan Continue IV Protonix, continue gentle IV fluid therapy Monitor hemoglobin Patient does not have any active hematemesis Spiked fevers, chest x-ray positive for right lower lung pneumonia-started on Zosyn, vancomycin Check procalcitonin Continue home medication Patient failed speech eval, ordered pur?ed diet Depakote, doxazosin, Cardura, levothyroxine, lisinop
[2023-05-20 16:00] VITALS: BP 134/85; PULSE 56; RESP 18; TEMP 37; O2SAT 93
[2023-05-20 16:13] VITALS: BMI 25.5
[2023-05-20 20:00] VITALS: BP 122/66; PULSE 63; RESP 17; TEMP 37.5; O2SAT 93
[2023-05-21 04:00] VITALS: BP 128/80; PULSE 97; RESP 17; TEMP 37.4; O2SAT 92; BMI 26.1
--- NOTE | 2023-05-21 05:06 | PC.NURSE ---
Patient has rested through the night. We have turned him every 2hrs to stay off his coccyx. Patient is continuing to swell in the bilateral legs and arms. Patient remains AXO to 0. no other issues noted
[2023-05-21 07:25] LABS: MANUAL DIFFERENTIAL MANUAL DIFFERENTIAL (MANUAL DIFF)
[2023-05-21 07:32] LABS: Anion Gap 10.2 mEq/L (5-15); Basophils % 0.6 % (0.1-2.0); Blood Urea Nitrogen 11 mg/dl (9-20); Carbon Dioxide 21 mmol/L (22.0-30.0); Chloride 111 mmol/L (98-107); Creatinine Clearance Estimated 68 mL/min (50-200); Eosinophils # 0.3 K/mm3 (0.0-0.4); Eosinophils % 3.9 % (0.1-12.0); Estimated Glomerular Filt Rate 108 ml/min (>60); GFR (African American) 131 ML/MIN (>60); Glucose 80 mg/dl (74-100); Hematocrit 25.8 % (42.0-52.0); Hemoglobin 8.8 g/dL (14.1-18.0); Lymphocytes # 2.7 K/mm3 (0.7-4.5); Lymphocytes % 42.2 % (10-50); Mean Platelet Volume 8.3 fl (7.4-10.4); Monocytes # 0.7 K/mm3 (0.1-1.0); Monocytes % 10.2 % (1.7-9.3); Neutrophils # 2.8 K/mm3 (1.8-7.8); Neutrophils % 43.1 % (37.0-80.0); Platelet Count 215 K/mm3 (142-424); Potassium 3.2 mmoL/L (3.5-5.1); Red Blood Count 2.75 M/mm3 (4.60-6.20); Red Cell Distribution Width 16.3 % (11.5-17.5); Sodium 139 mmol/L (136-145); White Blood Count 6.4 K/mm3 (4.8-10.8)
[2023-05-21 07:38] VITALS: BP 134/60; PULSE 81; RESP 19; TEMP 36.8; O2SAT 98
--- NOTE | 2023-05-21 08:40 | P.PN_ITS ---
Subjective Narrative: The patient is currently resting. Exam Data for Last 24 hours Vital signs and Labs for Last 24 Hours: Temp Pulse Resp BP Pulse Ox O2 Del Method 98.3 F 81 19 134/60 98 Room Air 05/21/23 07:38 05/21/23 07:38 05/21/23 07:38 05/21/23 07:38 05/21/23 07:38 05/21/23 07:38 Laboratory Results - last 24 hr 05/20/23 12:30: Lactate 1.5 05/21/23 05:56: WBC 6.4, RBC 2.75 L, Hgb 8.8 L, Hct 25.8 L, MCV 94.0, MCH 32.0 H , MCHC 34.0, RDW 16.3, Plt Count 215, MPV 8.3, Neut % (Auto) 43.1, Lymph % (Auto) 42.2, [place] % (Auto) 10.2 H, Eos % (Auto) 3.9, Baso % (Auto) 0.6, Neut # (Auto) 2.8, Lymph # (Auto) 2.7, [place] # (Auto) 0.7, Eos # (Auto) 0.3, Baso # (Auto) 0.0, Sodium 139, Potassium 3.2 L, Chloride 111 H, Carbon Dioxide 21 L, Anion Gap 10.2, BUN 11, Creatinine 0.70 D, Estimated Creat Clear 68, Estimated GFR 108, Est GFR ( Amer) 131 D, Glucose 80, Calcium 7.0 L I & O for Last 24 hours: Intake & Output 05/18/23 05/19/23 05/20/23 05/21/23 11:59 11:59 11:59 11:59 Intake Total 0 / 0 0 / 0 118 / 118 Output Total 725 / 725 300 / 300 800 / 800 Balance -725 / -725 -300 / -300 -682 / -682 Weight 178 lb 7.004 oz 178 lb 11.2 oz 182 lb 9.6 oz Microbiology Reports for the Last 24 Hours: Microbiology 05/19/23 00:52 Blood Blood Culture - Preliminary Constitutional Constitutional: no acute distress *Routine Respiratory Exam Respiratory: Absent respiratory distress Progress Note: A&P Assessment and plan (1) Esophagitis: Status: Acute Assessment and plan: Continue proton pump inhibition (2) Dysphagia: Status: Acute Assessment and plan: Continue management as per speech pathology recommendations
[2023-05-21 08:46] LABS: Eosinophils % 2 % (0-3); Lymphocytes % 38 % (10-50); Monocytes % 14 % (2-9); Neutrophils % 46 % (42-76); Total Cells Counted 100
[2023-05-21 08:47] LABS: Platelet Estimate Normal; RBC Morphology Normal
[2023-05-21 16:00] VITALS: BP 158/77; PULSE 83; RESP 20; TEMP 37.8; O2SAT 98
--- NOTE | 2023-05-21 16:14 | EXP.PN ---
Subjective *Date: 05/21/23 *Time: 16:14 Interval history: seen at bedside, he apprears frail, not holding conversations, is not much verbal at baseline, he appears comfortable in bed Exam Data for Last 24 hours Vital signs and Labs for Last 24 Hours: Temp Pulse Resp BP Pulse Ox O2 Del Method 98.3 F 81 19 134/60 98 Room Air 05/21/23 07:38 05/21/23 07:38 05/21/23 07:38 05/21/23 07:38 05/21/23 07:38 05/21/23 13:00 Laboratory Results - last 24 hr 05/21/23 05:56: WBC 6.4, RBC 2.75 L, Hgb 8.8 L, Hct 25.8 L, MCV 94.0, MCH 32.0 H, MCHC 34.0, RDW 16.3, Plt Count 215, MPV 8.3, Neut % (Auto) 43.1, Lymph % (Auto) 42.2, [place] % (Auto) 10.2 H, Eos % (Auto) 3.9, Baso % (Auto) 0.6, Neut # (Auto) 2.8, Lymph # (Auto) 2.7, [place] # (Auto) 0.7, Eos # (Auto) 0.3, Baso # (Auto) 0.0, Total Counted 100, Neutrophils % (Manual) 46, Lymphocytes % (Manual) 38, Monocytes % (Manual) 14 H, Eosinophils % (Manual) 2, Platelet Estimate Normal, RBC Morphology Normal, Sodium 139, Potassium 3.2 L, Chloride 111 H, Carbon Dioxide 21 L, Anion Gap 10.2, BUN 11, Creatinine 0.70 D, Estimated Creat Clear 68, Estimated GFR 108, Est GFR ( Amer) 131 D, Glucose 80, Calcium 7.0 L Temp Pulse Resp BP Pulse Ox O2 Del Method 98.3 F 81 19 134/60 98 Room Air 05/21/23 07:38 05/21/23 07:38 05/21/23 07:38 05/21/23 07:38 05/21/23 07:38 05/21/23 07:38 Laboratory Results - last 24 hr 05/20/23 12:30: Lactate 1.5 05/21/23 05:56: WBC 6.4, RBC 2.75 L, Hgb 8.8 L, Hct 25.8 L, MCV 94.0, MCH 32.0 H, MCHC 34.0, RDW 16.3, Plt Count 215, MPV 8.3, Neut % (Auto) 43.1, Lymph % (Auto) 42.2, [place] % (Auto) 10.2 H, Eos % (Auto) 3.9, Baso % (Auto) 0.6, Neut # (Auto) 2.8, Lymph # (Auto) 2.7, [place] # (Auto) 0.7, Eos # (Auto) 0.3, Baso # (Auto) 0.0, Sodium 139, Potassium 3.2 L, Chloride 111 H, Carbon Dioxide 21 L, Anion Gap 10.2, BUN 11, Creatinine 0.70 D, Estimated Creat Clear 68, Estimated GFR 108, Est GFR ( Amer) 131 D, Glucose 80, Calcium 7.0 L I & O for Last 24 hours: Intake & Output 05/18/23 05/19/23 05/20/23 05/21/23 23:59 23:59 23:59 23:59 Intake Total 0 / 0 118 / 118 30 / 30 Output Total 725 / 725 300 / 300 800 / 800 Balance -725 / -725 -182 / -182 -770 / -770 Weight 80.938 kg 81 kg 82.826 kg Intake & Output 05/18/23 05/19/23 05/20/23 05/21/23 11:59 11:59 11:59 11:59 Intake Total 0 / 0 0 / 0 118 / 118 Output Total 725 / 725 300 / 300 800 / 800 Balance -725 / -725 -300 / -300 -682 / -682 Weight 178 lb 7.004 oz 178 lb 11.2 oz 182 lb 9.6 oz Microbiology Reports for the Last 24 Hours: Microbiology 05/19/23 00:30 Urine,[place] Urine Culture - Final 05/19/23 00:52 Blood Blood Culture - Preliminary Microbiology 05/19/23 00:52 Blood Blood Culture - Preliminary Constitutional Constitutional: no acute distress *Routine Respiratory Exam Respiratory: Absent respiratory distress Assessment and Plan *Assessment and plan (1) Elevated lactic acid level: Status: Acute Category: Medical Code(s): R79.89 - Other specified abnormal findings of blood chemistry (2) Increased nausea and vomiting: Status: Acute Category: Medical Code(s): R11.2 - Nausea with vomiting, unspecified (3) A-fib: Status: Acute Category: Medical Code(s): I48.91 - Unspecified atrial fibrillation (4) HLD (hyperlipidemia): Status: Acute Category: Medical Code(s): E78.5 - Hyperlipidemia, unspecified (5) HTN (hypertension): Status: Acute Category: Medical Code(s): I10 - Essential (primary) hypertension (6) BPH (benign prostatic hyperplasia): Status: Acute Category: Medical Code(s): N40.0 - Benign prostatic hyperplasia without lower urinary tract symptoms (7) Seizure: Status: Acute Category: Medical Code(s): R56.9 - Unspecified convulsions (8) Esophagitis: Status: Acute Category: Medi
--- NOTE | 2023-05-21 18:12 | PC.NURSE ---
TURNED Q2HRS THIS SHIFT. TREATED FOR MILD FEVER WITH PRN TYLENOL. REMAINS CONFUSED. CRUSHING MEDICATIONS. DEPAKOTE CHANGED TO CRUSHABLE VERSION. NO OTHER ISSUES THIS SHIFT.
[2023-05-21 20:00] VITALS: BP 101/63; PULSE 72; RESP 18; TEMP 36.9; O2SAT 98
[2023-05-22 00:14] LABS: Vancomycin,Trough 15.3 ug/mL (5.0-10.0)
[2023-05-22 02:38] LABS: Vancomycin,Peak 37.5 ug/ml (11-39)
[2023-05-22 04:00] VITALS: BMI 26.4
[2023-05-22 07:32] LABS: MANUAL DIFFERENTIAL MANUAL DIFFERENTIAL (MANUAL DIFF)
[2023-05-22 07:38] LABS: Basophils % 0.5 % (0.1-2.0); Eosinophils # 0.4 K/mm3 (0.0-0.4); Eosinophils % 5.3 % (0.1-12.0); Hematocrit 27.5 % (42.0-52.0); Hemoglobin 9.5 g/dL (14.1-18.0); Lymphocytes # 3.6 K/mm3 (0.7-4.5); Lymphocytes % 44.6 % (10-50); Mean Corpuscular HGB Conc 34.7 g/dL (31.8-35.4); Mean Corpuscular Hemoglobin 32.6 pg (27.0-31.2); Mean Corpuscular Volume 93.8 fl (80-94); Mean Platelet Volume 8.4 fl (7.4-10.4); Monocytes # 0.9 K/mm3 (0.1-1.0); Monocytes % 10.6 % (1.7-9.3); Neutrophils # 3.2 K/mm3 (1.8-7.8); Neutrophils % 39.1 % (37.0-80.0); Platelet Count 240 K/mm3 (142-424); Red Blood Count 2.93 M/mm3 (4.60-6.20); Red Cell Distribution Width 15.9 % (11.5-17.5); White Blood Count 8.1 K/mm3 (4.8-10.8)
[2023-05-22 07:52] LABS: Anion Gap 8.7 mEq/L (5-15); Blood Urea Nitrogen 10 mg/dl (9-20); Calcium 7.1 mg/dl (8.4-10.2); Carbon Dioxide 19 mmol/L (22.0-30.0); Chloride 112 mmol/L (98-107); Creatinine Clearance Estimated 69 mL/min (50-200); Estimated Glomerular Filt Rate 129 ml/min (>60); GFR (African American) 156 ML/MIN (>60); Glucose 81 mg/dl (74-100); Potassium 3.7 mmoL/L (3.5-5.1); Sodium 136 mmol/L (136-145)
[2023-05-22 08:00] VITALS: BP 132/73; PULSE 91; RESP 18; TEMP 37.4; O2SAT 98
--- NOTE | 2023-05-22 08:19 | P.PN_ITS ---
Subjective Narrative: Patient currently resting Exam Data for Last 24 hours Vital signs and Labs for Last 24 Hours: Temp Pulse Resp BP Pulse Ox O2 Del Method 98.4 F 72 18 101/63 L 98 Room Air 05/21/23 20:00 05/21/23 20:00 05/21/23 20:00 05/21/23 20:00 05/21/23 20:00 05/22/23 07:00 Laboratory Results - last 24 hr 05/21/23 23:15: Vancomycin Trough 15.3 H 05/22/23 02:10: Vancomycin Peak 37.5 05/22/23 07:05: WBC 8.1 D, RBC 2.93 L, Hgb 9.5 L, Hct 27.5 L, MCV 93.8, MCH 32.6 H, MCHC 34.7, RDW 15.9, Plt Count 240, MPV 8.4, Neut % (Auto) 39.1, Lymph % (Auto) 44.6, [place] % (Auto) 10.6 H, Eos % (Auto) 5.3, Baso % (Auto) 0.5, Neut # (Auto) 3.2, Lymph # (Auto) 3.6, [place] # (Auto) 0.9, Eos # (Auto) 0.4, Baso # (Auto) 0.0, Sodium 136, Potassium 3.7, Chloride 112 H, Carbon Dioxide 19 L, Anion Gap 8.7, BUN 10, Creatinine 0.60 L, Estimated Creat Clear 69, Estimated GFR 129, Est GFR ( Amer) 156, Glucose 81, Calcium 7.1 L I & O for Last 24 hours: Intake & Output 05/19/23 05/20/23 05/21/23 05/22/23 11:59 11:59 11:59 10:59 Intake Total 0 / 0 0 / 0 148 / 148 561 / 561 Output Total 725 / 725 300 / 300 800 / 800 600 / 600 Balance -725 / -725 -300 / -300 -652 / -652 -39 / -39 Weight 178 lb 7.004 oz 178 lb 11.2 oz 182 lb 9.6 oz 185 lb 1 oz Microbiology Reports for the Last 24 Hours: Microbiology 05/19/23 00:30 Urine,[place] Urine Culture - Final 05/19/23 00:52 Blood Blood Culture - Preliminary Constitutional Comments: Exam deferred Progress Note: A&P Assessment and plan (1) Esophagitis: Status: Acute Assessment and plan: Continue proton pump inhibition (2) Dysphagia: Status: Acute Assessment and plan: Continue management as per speech pathology recommendations
[2023-05-22 09:14] LABS: Eosinophils % 5 % (0-3); Lymphocytes % 31 % (10-50); Monocytes % 9 % (2-9); Myelocytes % 1 (0-1); Neutrophils % 54 % (42-76); Platelet Estimate Normal; RBC Morphology Normal; Total Cells Counted 100
--- NOTE | 2023-05-22 09:29 | EXP.PHA.PN ---
Subjective *Date: 05/22/23 *Time: 09:29 Medical Exam Vital signs and Labs for Last 24 Hours: Vital Signs Temp Pulse Resp BP Pulse Ox O2 Del Method 05/22/23 08:00 99.3 F 91 H 18 132/73 98 Room Air 05/22/23 07:00 Room Air 05/22/23 05:00 Room Air 05/22/23 03:00 Room Air 05/22/23 01:00 EST Room Air 05/21/23 23:00 Room Air 05/21/23 21:00 Room Air 05/21/23 23:00 Room Air 05/21/23 20:00 98.4 F 72 18 101/63 L 98 Room Air 05/21/23 16:38 Room Air 05/21/23 15:00 Room Air 05/21/23 16:00 100.1 F H 83 20 158/77 H 98 Room Air 05/21/23 13:00 Room Air 05/21/23 11:00 Room Air Intake and Output 05/22/23 05/22/23 05/22/23 00:59 07:59 15:59 Intake Total Output Total Balance Intake: Intake, Oral Amount Infusion Intake Lactated Ringers 1000ML 1,000 ml @ 75 mls/hr IV .[id number] [facility] Rx#:[id number] Output: Output, Urine Amount Other: Weight Patient Weight 05/22/23 22:59 Weight 83.943 kg Laboratory Results - last 24 hr 05/21/23 23:15: Vancomycin Trough 15.3 H 05/22/23 02:10: Vancomycin Peak 37.5 05/22/23 07:05: WBC 8.1 D, RBC 2.93 L, Hgb 9.5 L, Hct 27.5 L, MCV 93.8, MCH 32.6 H, MCHC 34.7, RDW 15.9, Plt Count 240, MPV 8.4, Neut % (Auto) 39.1, Lymph % (Auto) 44.6, [place] % (Auto) 10.6 H, Eos % (Auto) 5.3, Baso % (Auto) 0.5, Neut # (Auto) 3.2, Lymph # (Auto) 3.6, [place] # (Auto) 0.9, Eos # (Auto) 0.4, Baso # (Auto) 0.0, Total Counted 100, Neutrophils % (Manual) 54, Lymphocytes % (Manual) 31, Monocytes % (Manual) 9, Eosinophils % (Manual) 5 H, Myelocytes % 1, Platelet Estimate Normal, RBC Morphology Normal, Sodium 136, Potassium 3.7, Chloride 112 H, Carbon Dioxide 19 L, Anion Gap 8.7, BUN 10, Creatinine 0.60 L, Estimated Creat Clear 69, Estimated GFR 129, Est GFR ( Amer) 156, Glucose 81, Calcium 7.1 L I & O for Labs for Last 24 Hours: Intake & Output 05/19/23 05/20/23 05/21/23 05/22/23 23:59 23:59 23:59 22:59 Intake Total 0 / 0 118 / 118 591 / 591 Output Total 725 / 725 300 / 300 800 / 800 600 / 600 Balance -725 / -725 -182 / -182 -209 / -209 -600 / -600 Weight 80.938 kg 81 kg 82.826 kg 83.943 kg Microbiology Reports for the Last 24 Hours: Microbiology 05/19/23 00:30 Urine,[place] Urine Culture - Final The patient's infection will respond to the chosen ABx?: Yes (URINE CULTURE NO GROWTH, BLOOD = GRAM POS COCCI/PENDING, WHITE COUNT NORMAL) Is the patient receiving the right drug, dose, and route?: Yes Could a more targeted ABx be ordered?: No
--- NOTE | 2023-05-22 09:30 | EXP.PHA.CONS ---
Pharmacy Consult Date: 05/22/23 Time: 09:33 Referring provider: DR TATE Reason for Consult:: VANCOMYCIN PEAK AND TROUGH LEVELS OBTAINED. Allergies Allergy/AdvReac Type Severity Reaction Status Date / Time No Known Drug Allergies Allergy Verified 05/19/23 00:42 Home Medications Medication Instructions Recorded Confirmed Type acetaminophen 500 mg tablet 500 mg PO Q6HP PRN Mild Pain 05/19/23 05/19/23 History (Scale Score 1-4) bisacodyl 5 mg tablet,delayed 5 mg PO DAILYP PRN Constipation 05/19/23 05/19/23 History release divalproex 500 mg tablet,extended 500 mg PO BID 05/19/23 05/19/23 History release 24 hr docusate sodium 100 mg capsule 100 mg PO BIDP PRN Constipation 05/19/23 05/19/23 History doxazosin 4 mg tablet 4 mg PO HS 05/19/23 05/19/23 History finasteride 5 mg tablet 5 mg PO DAILY 05/19/23 05/19/23 History lactulose 20 gram/30 mL oral 10 g PO DAILYP PRN Constipation 05/19/23 05/19/23 History solution levothyroxine 50 mcg tablet 50 mcg PO DAILY 05/19/23 05/19/23 History lisinopril 20 mg tablet 20 mg PO DAILY 05/19/23 05/19/23 History megestrol 400 mg/10 mL (10 mL) 400 mg PO BID malnutrition 05/19/23 05/19/23 History oral suspension melatonin 3 mg capsule 6 mg PO HS Insomnia 05/19/23 05/19/23 History memantine 10 mg tablet 10 mg PO BID 05/19/23 05/19/23 History mirtazapine 15 mg tablet (Remeron) 15 mg PO HS 05/19/23 05/19/23 History oxybutynin chloride 5 mg tablet 5 mg PO DAILY 05/19/23 05/19/23 History pantoprazole 20 mg tablet,delayed 20 mg PO DAILY 05/19/23 05/19/23 History release quetiapine 25 mg tablet 25 mg PO HS 05/19/23 05/19/23 History risperidone 1 mg tablet (Risperdal) 1 mg PO BID 05/19/23 05/19/23 History rosuvastatin 10 mg tablet 10 mg PO DAILY 05/19/23 05/19/23 History sennosides 8.6 mg tablet 8.6 mg PO BIDP PRN Constipation 05/19/23 05/19/23 History simethicone 80 mg chewable tablet 80 mg PO QIDP PRN indegestion 05/19/23 05/19/23 History New Prescriptions to Start Prescriptions: Height: 1.78 m Weight: 83.943 kg Laboratory Results:: Laboratory Results - last 24 hr 05/21/23 23:15: Vancomycin Trough 15.3 H 05/22/23 02:10: Vancomycin Peak 37.5 05/22/23 07:05: WBC 8.1 D, RBC 2.93 L, Hgb 9.5 L, Hct 27.5 L, MCV 93.8, MCH 32.6 H, MCHC 34.7, RDW 15.9, Plt Count 240, MPV 8.4, Neut % (Auto) 39.1, Lymph % (Auto) 44.6, [place] % (Auto) 10.6 H, Eos % (Auto) 5.3, Baso % (Auto) 0.5, Neut # (Auto) 3.2, Lymph # (Auto) 3.6, [place] # (Auto) 0.9, Eos # (Auto) 0.4, Baso # (Auto) 0.0, Total Counted 100, Neutrophils % (Manual) 54, Lymphocytes % (Manual) 31, Monocytes % (Manual) 9, Eosinophils % (Manual) 5 H, Myelocytes % 1, Platelet Estimate Normal, RBC Morphology Normal, Sodium 136, Potassium 3.7, Chloride 112 H, Carbon Dioxide 19 L, Anion Gap 8.7, BUN 10, Creatinine 0.60 L, Estimated Creat Clear 69, Estimated GFR 129, Est GFR ( Amer) 156, Glucose 81, Calcium 7.1 L Medical History: Medical History (Updated 05/21/23 @ 08:41 by Yohan Carcamo MD) Chronic indwelling [place] catheter Impaired mobility Assessment and Plan Assessment and plan all Dx Assessment and Plan for all problems:: VANCOMYCIN PEAK AND TROUGH LEVELS OBTAINED. VANCOMYCIN TROUGH: 15.3 MCG/ML (05/21/23 23:15) VANCOMYCIN PEAK: 37.5 MCG/ML (05/22/23 02:10) RECOMMENDATION: CONTINUE CURRENT VANCOMYCIN IV DOSE OF 1500 MG IV Q18H.
--- NOTE | 2023-05-22 13:02 | EXP.PN ---
Subjective *Date: 05/22/23 *Time: 13:02 Interval history: seen at bedside, he apprears frail and weak, not holding conversations, is not much verbal at baseline, he appears comfortable in bed Exam Data for Last 24 hours Vital signs and Labs for Last 24 Hours: Temp Pulse Resp BP Pulse Ox O2 Del Method 99.3 F 91 H 18 132/73 98 Room Air 05/22/23 08:00 05/22/23 08:00 05/22/23 08:00 05/22/23 08:00 05/22/23 08:00 05/22/23 10:44 Laboratory Results - last 24 hr 05/21/23 23:15: Vancomycin Trough 15.3 H 05/22/23 02:10: Vancomycin Peak 37.5 05/22/23 07:05: WBC 8.1 D, RBC 2.93 L, Hgb 9.5 L, Hct 27.5 L, MCV 93.8, MCH 32.6 H, MCHC 34.7, RDW 15.9, Plt Count 240, MPV 8.4, Neut % (Auto) 39.1, Lymph % (Auto) 44.6, [place] % (Auto) 10.6 H, Eos % (Auto) 5.3, Baso % (Auto) 0.5, Neut # (Auto) 3.2, Lymph # (Auto) 3.6, [place] # (Auto) 0.9, Eos # (Auto) 0.4, Baso # (Auto) 0.0, Total Counted 100, Neutrophils % (Manual) 54, Lymphocytes % (Manual) 31, Monocytes % (Manual) 9, Eosinophils % (Manual) 5 H, Myelocytes % 1, Platelet Estimate Normal, RBC Morphology Normal, Sodium 136, Potassium 3.7, Chloride 112 H, Carbon Dioxide 19 L, Anion Gap 8.7, BUN 10, Creatinine 0.60 L, Estimated Creat Clear 69, Estimated GFR 129, Est GFR ( Amer) 156, Glucose 81, Calcium 7.1 L Temp Pulse Resp BP Pulse Ox O2 Del Method 98.3 F 81 19 134/60 98 Room Air 05/21/23 07:38 05/21/23 07:38 05/21/23 07:38 05/21/23 07:38 05/21/23 07:38 05/21/23 07:38 Laboratory Results - last 24 hr 05/20/23 12:30: Lactate 1.5 05/21/23 05:56: WBC 6.4, RBC 2.75 L, Hgb 8.8 L, Hct 25.8 L, MCV 94.0, MCH 32.0 H, MCHC 34.0, RDW 16.3, Plt Count 215, MPV 8.3, Neut % (Auto) 43.1, Lymph % (Auto) 42.2, [place] % (Auto) 10.2 H, Eos % (Auto) 3.9, Baso % (Auto) 0.6, Neut # (Auto) 2.8, Lymph # (Auto) 2.7, [place] # (Auto) 0.7, Eos # (Auto) 0.3, Baso # (Auto) 0.0, Sodium 139, Potassium 3.2 L, Chloride 111 H, Carbon Dioxide 21 L, Anion Gap 10.2, BUN 11, Creatinine 0.70 D, Estimated Creat Clear 68, Estimated GFR 108, Est GFR ( Amer) 131 D, Glucose 80, Calcium 7.0 L I & O for Last 24 hours: Intake & Output 05/19/23 05/20/23 05/21/23 05/22/23 23:59 23:59 23:59 22:59 Intake Total 0 / 0 118 / 118 591 / 591 Output Total 725 / 725 300 / 300 800 / 800 600 / 600 Balance -725 / -725 -182 / -182 -209 / -209 -600 / -600 Weight 80.938 kg 81 kg 82.826 kg 83.943 kg Intake & Output 05/18/23 05/19/23 05/20/23 05/21/23 11:59 11:59 11:59 11:59 Intake Total 0 / 0 0 / 0 118 / 118 Output Total 725 / 725 300 / 300 800 / 800 Balance -725 / -725 -300 / -300 -682 / -682 Weight 178 lb 7.004 oz 178 lb 11.2 oz 182 lb 9.6 oz Microbiology Reports for the Last 24 Hours: Microbiology 05/19/23 00:52 Blood Blood Culture - Preliminary 05/19/23 02:10 Blood Blood Culture - Preliminary 05/19/23 00:30 Urine,[place] Urine Culture - Final Microbiology 05/19/23 00:52 Blood Blood Culture - Preliminary Constitutional Constitutional: no acute distress *Routine Respiratory Exam Respiratory: Absent respiratory distress Assessment and Plan *Assessment and plan (1) Elevated lactic acid level: Status: Acute Category: Medical Code(s): R79.89 - Other specified abnormal findings of blood chemistry (2) Increased nausea and vomiting: Status: Acute Category: Medical Code(s): R11.2 - Nausea with vomiting, unspecified (3) A-fib: Status: Acute Category: Medical Code(s): I48.91 - Unspecified atrial fibrillation (4) HLD (hyperlipidemia): Status: Acute Category: Medical Code(s): E78.5 - Hyperlipidemia, unspecified (5) HTN (hypertension): Status: Acute Category: Medical Code(s): I10 - Essential (primary) hypertension (6) BPH (benign prostatic hyperplasia): Status: Acute Category: Medical Code(s): N40.0 - Benign prostatic hyperplasia without lower urinary
[2023-05-22 13:19] VITALS: BP 140/72; PULSE 86; RESP 16; TEMP 37.1; O2SAT 96
[2023-05-22 15:42] VITALS: BP 143/77; PULSE 79; RESP 18; TEMP 37.3; O2SAT 96
--- NOTE | 2023-05-22 17:12 | PC.NURSE ---
PT A&O TO NAME AND BIRTHDAY, HOWEVER STILL BELIEVES HE IS IN [facility]. HAS SLEPT MAJORITY OF DAY. HAS BEEN TURNED Q2H. KEPT CLEAN AND DRY. F/C DRAINING BRIGHT YELLOW URINE. DOES HAVE GENERALIZED PITTING EDEMA TO UPPER AND LOWER EXTREMITIES. NO NEEDS OR C/O NOTED. VSS.
[2023-05-22 20:00] VITALS: BP 129/74; PULSE 87; RESP 20; TEMP 37.4; O2SAT 98
[2023-05-23 04:00] VITALS: BMI 26.7
--- NOTE | 2023-05-23 05:47 | PC.NURSE ---
pt has been calm and cooperative through the night. alert to name.
[2023-05-23 06:45] LABS: MANUAL DIFFERENTIAL MANUAL DIFFERENTIAL (MANUAL DIFF)
[2023-05-23 06:50] LABS: Basophils # 0.1 K/mm3 (0-0.2); Basophils % 0.6 % (0.1-2.0); Eosinophils # 0.4 K/mm3 (0.0-0.4); Eosinophils % 4.7 % (0.1-12.0); Hemoglobin 9.5 g/dL (14.1-18.0); Lymphocytes # 3.6 K/mm3 (0.7-4.5); Lymphocytes % 46.7 % (10-50); Mean Corpuscular HGB Conc 34.5 g/dL (31.8-35.4); Mean Corpuscular Hemoglobin 32.3 pg (27.0-31.2); Mean Corpuscular Volume 93.7 fl (80-94); Monocytes # 0.6 K/mm3 (0.1-1.0); Monocytes % 8.3 % (1.7-9.3); Neutrophils % 39.6 % (37.0-80.0); Platelet Count 260 K/mm3 (142-424); Red Blood Count 2.94 M/mm3 (4.60-6.20); Red Cell Distribution Width 16.2 % (11.5-17.5); White Blood Count 7.6 K/mm3 (4.8-10.8)
[2023-05-23 07:00] LABS: Anion Gap 9.1 mEq/L (5-15); Blood Urea Nitrogen 6 mg/dl (9-20); Carbon Dioxide 19 mmol/L (22.0-30.0); Chloride 111 mmol/L (98-107); Creatinine Clearance Estimated 69 mL/min (50-200); Estimated Glomerular Filt Rate 129 ml/min (>60); GFR (African American) 156 ML/MIN (>60); Glucose 83 mg/dl (74-100); Potassium 3.1 mmoL/L (3.5-5.1); Sodium 136 mmol/L (136-145)
[2023-05-23 07:01] LABS: Hematocrit 27.5 % (42.0-52.0)
[2023-05-23 07:42] VITALS: BP 120/93; PULSE 89; RESP 18; TEMP 36.4; O2SAT 99
[2023-05-23 07:43] LABS: Eosinophils % 5 % (0-3); Lymphocytes % 49 % (10-50); Monocytes % 10 % (2-9); Neutrophils % 36 % (42-76); Platelet Estimate Normal; Total Cells Counted 100
[2023-05-23 07:44] LABS: Anisocytosis 1+
--- NOTE | 2023-05-23 08:39 | PC.NURSE ---
ST at bedside for follow up swallowing eval.
--- NOTE | 2023-05-23 12:19 | PC.NURSE ---
Attempted to feed patient lunch. Patient coughed, turned red in the face and required suctioning with the yanker when give nectar thickened water. Notified Joanna in . Dr. Flores notified.
--- NOTE | 2023-05-23 12:35 | DIET.NUTRFU ---
Patient's po intake continues to be poor. Today he was too lethargic to even take pills. Continues on pureed, nectar, but based on advanced dementia dx anticipate further decline. Provider plans to have a plan of care discussion today. Family plans to take home for discharge when ready.
[2023-05-23 15:07] VITALS: BP 160/25; PULSE 88; RESP 18; TEMP 37; O2SAT 94
--- NOTE | 2023-05-23 16:51 | EXP.ACUTE.PN ---
Subjective *Date: 05/23/23 *Time: 10:37 Interval history: Patient responsive but confused on initial exam in the morning. More interactive as the day went on. Requesting something to eat.Poor participation with speech therapy today. Remains afebrile and hemodynamically stable. No nausea or vomiting, no oxygen requirement. Working with therapy but very weak and appears to have declined since admission. No family at bedside on rounds. Attempted to reach out to family today, unsuccessful. They have been here through the weekend, will reattempt tomorrow. Medical Exam Vital signs and Labs for Last 24 Hours: Vital Signs Temp Pulse Resp BP Pulse Ox O2 Del Method O2 Flow Rate 05/23/23 15:07 98.6 F 88 18 160/25 H 94 L Room Air 05/23/23 14:31 Room Air 05/23/23 13:00 Room Air 95 05/23/23 11:38 Room Air 05/23/23 11:32 Room Air 05/23/23 07:42 97.6 F 89 18 120/93 H 99 Room Air 05/23/23 07:00 Room Air 05/23/23 03:00 Room Air 05/23/23 01:00 Room Air 05/22/23 23:00 Room Air 05/22/23 21:00 Room Air 05/22/23 23:00 Room Air 05/22/23 20:00 99.4 F 87 20 129/74 98 Room Air 05/22/23 18:33 Room Air Intake and Output 05/23/23 05/23/23 05/23/23 07:59 15:59 23:59 Intake Total 240 / 240 Output Total 750 / 1350 600 / 1350 Balance -510 / -1110 -600 / -1110 Intake: Intake, Oral Amount 240 / 240 Output: Output, Urine Amount 750 / 1350 600 / 1350 Other: Number of Unmeasured Voids 0 Weight 84.69 kg Patient Weight 05/23/23 23:59 Weight 84.69 kg Laboratory Results - last 24 hr 05/23/23 06:33: WBC 7.6, RBC 2.94 L, Hgb 9.5 L, Hct 27.5 L, MCV 93.7, MCH 32.3 H, MCHC 34.5, RDW 16.2, Plt Count 260, MPV 9.0, Neut % (Auto) 39.6, Lymph % (Auto) 46.7, [place] % (Auto) 8.3, Eos % (Auto) 4.7, Baso % (Auto) 0.6, Neut # (Auto) 3.0, Lymph # (Auto) 3.6, [place] # (Auto) 0.6, Eos # (Auto) 0.4, Baso # (Auto) 0.1, Total Counted 100, Neutrophils % (Manual) 36 L, Lymphocytes % (Manual) 49, Monocytes % (Manual) 10 H, Eosinophils % (Manual) 5 H, Platelet Estimate Normal, Anisocytosis 1+, Sodium 136, Potassium 3.1 L, Chloride 111 H, Carbon Dioxide 19 L, Anion Gap 9.1, BUN 6 L D, Creatinine 0.60 L, Estimated Creat Clear 69, Estimated GFR 129, Est GFR ( Amer) 156, Glucose 83, Calcium 7.0 L I & O for Labs for Last 24 Hours: Intake & Output 05/21/23 05/22/23 05/22/23 05/23/23 00:59 00:59 23:59 23:59 Intake Total 240 / 240 Output Total 1350 / 1350 Balance -1110 / -1110 Weight 84.69 kg Microbiology Reports for the Last 24 Hours: Microbiology 05/19/23 00:52 Blood Blood Culture - Final 05/19/23 18:10 Blood Blood Culture - Preliminary 05/19/23 02:10 Blood Blood Culture - Preliminary 05/19/23 18:25 Blood Blood Culture - Preliminary Constitutional: Present no acute distress, average body habitus, chronically ill appearing and cooperative Head: Present atraumatic and normocephalic ENT: Present normal exam Neck: Present normal inspection Respiratory: Present normal respiratory effort; Absent rhonchi, wheezes or crackles Cardiac: Present Reg Rate and Rhythm GI: Present soft and normal bowel sounds; Absent distention or tenderness Comments:: Decubitus wound, see wound notes for full pictures and details. Extremities: Present normal inspection, full ROM and edema (2+ in legs and 1+ in upper extremities.) Skin: Present intact; Absent erythema Neuro: Present Grossly Intact, alert, awake and moves all extremities Comment:: Globally weak, strength 4/5. Oriented to self only Assessment and Plan *Assessment and plan (1) Pneumonia: Status: Acute Category: Medical Code(s): J18.9 - Pneumonia, unspecified organism (2) Elevated lactic acid level: Status: Acute Category: Medical Code(s): R79.89 - Other specified abnormal findings of blood chemistry (3) Increased nausea and vomiti
[2023-05-23 19:49] VITALS: BP 107/65; PULSE 99; RESP 18; TEMP 36.4; O2SAT 98
[2023-05-23 20:00] VITALS: PULSE 70
[2023-05-24 04:00] VITALS: BP 141/69; PULSE 76; RESP 16; TEMP 36.7; O2SAT 97; BMI 26.3
--- NOTE | 2023-05-24 05:11 | PC.NURSE ---
pt bonifacio nectar thickened liquids and pudding for hs snack. no coughing noted. pt turned and repositioned. cont to be alert to name only. cooperative
[2023-05-24 07:31] LABS: Basophils % 0.5 % (0.1-2.0); Eosinophils # 0.5 K/mm3 (0.0-0.4); Eosinophils % 6.5 % (0.1-12.0); Hematocrit 30.5 % (42.0-52.0); Hemoglobin 9.9 g/dL (14.1-18.0); Lymphocytes # 3.6 K/mm3 (0.7-4.5); Mean Corpuscular HGB Conc 32.6 g/dL (31.8-35.4); Mean Corpuscular Hemoglobin 31.5 pg (27.0-31.2); Mean Corpuscular Volume 96.6 fl (80-94); Mean Platelet Volume 7.9 fl (7.4-10.4); Monocytes # 0.5 K/mm3 (0.1-1.0); Monocytes % 6.7 % (1.7-9.3); Neutrophils # 3.1 K/mm3 (1.8-7.8); Neutrophils % 40.3 % (37.0-80.0); Platelet Count 254 K/mm3 (142-424); Red Blood Count 3.16 M/mm3 (4.60-6.20); Red Cell Distribution Width 16.1 % (11.5-17.5); White Blood Count 7.7 K/mm3 (4.8-10.8)
[2023-05-24 08:00] VITALS: BP 135/69; PULSE 98; RESP 19; TEMP 36.6; O2SAT 99
[2023-05-24 08:02] LABS: Alanine Aminotransferase 17 U/L (12-78); Albumin Level 2.1 g/dl (3.5-5.0); Albumin/Globulin Ratio 0.7 (1.1-1.8); Alkaline Phosphatase 84 U/L (38-126); Anion Gap 11.4 mEq/L (5-15); Aspartate Amino Transferase 29 U/L (17-59); Bilirubin,Total 0.4 mg/dl (0.2-1.3); Blood Urea Nitrogen 4 mg/dl (9-20); Calcium 7.3 mg/dl (8.4-10.2); Carbon Dioxide 18 mmol/L (22.0-30.0); Chloride 112 mmol/L (98-107); Creatinine Clearance Estimated 68 mL/min (50-200); Estimated Glomerular Filt Rate 129 ml/min (>60); GFR (African American) 156 ML/MIN (>60); Globulin 2.9 g/dL (1.3-3.2); Glucose 87 mg/dl (74-100); Potassium 3.4 mmoL/L (3.5-5.1); Sodium 138 mmol/L (136-145)
--- NOTE | 2023-05-24 14:22 | CARE MANAGER ---
Patient requires the head of the bed to be elevated more than 30 degrees most of the time because of problems with aspiration. He also requires positioning of the body in ways not feasible with an ordinary bed in order to alleviate pain.
--- NOTE | 2023-05-24 14:38 | CARE MANAGER ---
Patient requires a wheelchair at this time as he is unable to ambulate any distance. REYNALDO Amaral
--- NOTE | 2023-05-24 15:02 | CARE MANAGER ---
Patient requires use of the ritchie lift for transfer between bed and wheelchair or BSC. He requires the assistance of more than 1 person for transfers and without a ritchie lift the patient would be confined to the bed. REYNALDO Amaral
[2023-05-24 15:24] VITALS: BP 114/58; PULSE 86; RESP 17; TEMP 37.7; O2SAT 97
--- NOTE | 2023-05-24 18:36 | EXP.ACUTE.PN ---
Subjective *Date: 05/24/23 *Time: 18:40 Interval history: Patient responsive but confused on initial exam in the morning. More interactive as the day goes on. Requesting to eat. In bedside chair during family discussion. Stable on room air. Afebrile. Sigala in place, family request to leave this long-term. Medical Exam Vital signs and Labs for Last 24 Hours: Vital Signs Temp Pulse Pulse Resp BP Pulse Ox O2 Del Method 05/24/23 17:00 Room Air 05/24/23 15:24 99.9 F H 86 17 114/58 L 97 Room Air 05/24/23 15:00 Room Air 05/24/23 13:00 Room Air 05/24/23 11:00 Room Air 05/24/23 09:00 Room Air 05/24/23 08:00 Room Air 05/24/23 08:00 97.8 F 98 H 19 135/69 99 Room Air 05/24/23 07:00 Room Air 05/24/23 05:00 Room Air 05/24/23 04:00 98.0 F 76 16 141/69 H 97 Room Air 05/24/23 03:00 Room Air 05/24/23 01:00 Room Air 05/23/23 23:00 Room Air 05/23/23 20:00 70 05/23/23 21:00 Room Air 05/23/23 22:00 Room Air 05/23/23 19:49 97.6 F 99 H 18 107/65 L 98 Room Air Intake and Output 05/24/23 05/24/23 05/24/23 07:59 15:59 23:59 Intake Total 240 / 290 50 / 290 Output Total 1200 / 2650 1200 / 2650 250 / 2650 Balance -1200 / -2360 -960 / -2360 -200 / -2360 Intake: Intake, Oral Amount 240 / 240 0 / 240 Intake, Total IV Amount 50 / 50 Piperacillin/Tazo 3.375 gm In 0 50 / 50 .9 % Sodium Chloride 50 ml @ 100 mls/hr IV Q8H [facility] Rx#: [id number] Output: Output, Urine Amount 1200 / 1450 0 / 1450 250 / 1450 Output, Urine Amount (Catheter) 1200 / 1200 Sigala 1200 / 1200 Other: Number of Voids 0 Number of Unmeasured Voids 0 0 0 Weight 83.461 kg Patient Weight 05/24/23 23:59 Weight 83.461 kg Laboratory Results - last 24 hr 05/24/23 07:20: WBC 7.7, RBC 3.16 L, Hgb 9.9 L, Hct 30.5 L, MCV 96.6 H, MCH 31.5 H, MCHC 32.6, RDW 16.1, Plt Count 254, MPV 7.9, Neut % (Auto) 40.3, Lymph % (Auto) 46.0, Desha % (Auto) 6.7, Eos % (Auto) 6.5, Baso % (Auto) 0.5, Neut # (Auto) 3.1, Lymph # (Auto) 3.6, Desha # (Auto) 0.5, Eos # (Auto) 0.5 H, Baso # (Auto) 0.0, Sodium 138, Potassium 3.4 L, Chloride 112 H, Carbon Dioxide 18 L, Anion Gap 11.4, BUN 4 L D, Creatinine 0.60 L, Estimated Creat Clear 68, Estimated GFR 129, Est GFR ( Amer) 156, Glucose 87, Calcium 7.3 L, Total Bilirubin 0.4, AST 29, ALT 17, Alkaline Phosphatase 84, Total Protein 5.0 L, Albumin 2.1 L, Globulin 2.9, Albumin/Globulin Ratio 0.7 L I & O for Labs for Last 24 Hours: Intake & Output 05/22/23 05/22/23 05/23/23 05/24/23 00:59 23:59 23:59 23:59 Intake Total 590 / 590 290 / 290 Output Total 1350 / 1350 2650 / 2650 Balance -760 / -760 -2360 / -2360 Weight 84.69 kg 83.461 kg Microbiology Reports for the Last 24 Hours: Microbiology 05/19/23 18:25 Blood Blood Culture - Preliminary 05/19/23 00:52 Blood Blood Culture - Final Constitutional: Present no acute distress, average body habitus, chronically ill appearing and cooperative Head: Present atraumatic and normocephalic ENT: Present normal exam Neck: Present normal inspection Respiratory: Present normal respiratory effort; Absent rhonchi, wheezes or crackles Cardiac: Present Reg Rate and Rhythm GI: Present soft and normal bowel sounds; Absent distention or tenderness Comments:: Decubitus wound, see wound notes for full pictures and details. Extremities: Present normal inspection, full ROM and edema (2+ in legs and 1+ in upper extremities.) Skin: Present intact; Absent erythema Neuro: Present Grossly Intact, alert, awake and moves all extremities Comment:: Globally weak, strength 4/5. Oriented to self only Assessment and Plan *Assessment and plan (1) Esophagitis: Status: Acute Category: Medical Code(s): K20.90 - Esophagitis, unspecified without bleeding (2) Increased nausea and vomiting: Status: Acute
--- NOTE | 2023-05-24 18:37 | EXP.EVENT.NO ---
Advance care planning note: Active diagnosis: Dementia, heart failure, GI bleed, seizure disorder, failure to thrive The patient's active diagnoses are of sufficient risk that focused discussion on advanced care planning is indicated in order to allow the patient to thoughtfully consider personal goals of care; and, if situations arise that prevent the ability to personally give input, to ensure appropriate representation of their personal desires through documentation or informed surrogate decision makers. Discussion: Discussion with patient's son Fer, his fianc?e Maricruz, and patient in the room. Discussed patient's progressive decline over the past several months with multiple hospitalizations and decline while at intermediate. Patient is gone from living independently to necessitating care for all of his ADLs. PPS score 40%. Strong concern for continued decline. Discussed goals of care, family would like to get patient home with home health initially. If he shows improvement this is promising to them however if he does not improve in the next 2 to 4 weeks, they are open to pursuing hospice. Discussed CODE STATUS, son would like to think about this more before making patient DNR but he is open to discussion on this. Having a hard time per my evaluation with seeing his dad's rapid decline. Patient is pleasant but demented. Not very interactive during discussion, only requesting that he eat. Discussed risks and benefits of feeding tube versus modified diet. Decision made to proceed with modified diet and not consider feeding tube. Time spent: Total time spent [id number] in education and discussion directly related to advance care plannin minutes
--- NOTE | 2023-05-24 19:04 | PC.NURSE ---
A TO SELF THROUGHOUT SHIFT. RESPIRATIONS REGULAR AND UNLABORED. PT HAS TOLERATED RA WELL THROUGHOUT SHIFT. NO COUGH NOTED. HAND SENIOR ADVISOR EQUAL. DIMINISHED LUNG SOUNDS NOTED THROUGHOUT. ACTIVE BOWEL SOUNDS HEARD IN ALL 4 QUADRANTS. SOFT AND NONTENDER ABDOMEN. NO BM THUS FAR. MI CATH IN PLACE WITH YELLOW URINE NOTED. NO KINKS NOTED. BED ALARM ON TO PROMOTE SAFETY. DRESSING NOTED TO [employer]. PT TURNED Q2 HOURS. PT RECEIVED ZOSYN THIS SHIFT AND TOLERATED WELL. PT RECEIVED LASIX IV THIS SHIFT AND TOLERATED WELL THUS FAR. FAMILY DID VISIT EARLIER IN THE SHIFT. PT HAS TOLERATED NECTAR THICK LIQUIDS THIS SHIFT. PT HAS HAD AN INCREASED APPETITE THIS SHIFT AND TOLERATED MEALS WELL. BED IN LOWEST POSITION. CALL LIGHT WITHIN REACH. PLAN IS FOR PT TO DC HOME TOMORROW WITH HOME HEALTH AFTER DISCUSSING SEVERAL OPTIONS WITH HOSPITALIST. FAMILY HAD NO QUESTIONS OR CONCERNS AFTER THIS.
[2023-05-24 20:00] VITALS: BP 137/65; PULSE 88; RESP 17; TEMP 37.6; O2SAT 95
[2023-05-25 04:00] VITALS: BP 145/81; PULSE 101; RESP 18; TEMP 37.2; O2SAT 92; BMI 25.5
--- NOTE | 2023-05-25 05:31 | PC.NURSE ---
pt has had 1800 ml of urine tonight. assessments of swelling did seem to diminish but last assessment fluid in have re-accumulated noted in the hands
[2023-05-25 06:44] LABS: Basophils % 0.4 % (0.1-2.0); Eosinophils # 0.8 K/mm3 (0.0-0.4); Eosinophils % 9.4 % (0.1-12.0); Hemoglobin 9.6 g/dL (14.1-18.0); Lymphocytes # 3.6 K/mm3 (0.7-4.5); Lymphocytes % 43.8 % (10-50); Mean Corpuscular HGB Conc 33.1 g/dL (31.8-35.4); Mean Corpuscular Hemoglobin 31.8 pg (27.0-31.2); Monocytes # 0.5 K/mm3 (0.1-1.0); Monocytes % 6.5 % (1.7-9.3); Neutrophils # 3.3 K/mm3 (1.8-7.8); Neutrophils % 39.9 % (37.0-80.0); Platelet Count 250 K/mm3 (142-424); Red Blood Count 3.02 M/mm3 (4.60-6.20); Red Cell Distribution Width 16.5 % (11.5-17.5); White Blood Count 8.3 K/mm3 (4.8-10.8)
[2023-05-25 06:59] LABS: Alanine Aminotransferase 16 U/L (12-78); Albumin/Globulin Ratio 0.7 (1.1-1.8); Alkaline Phosphatase 76 U/L (38-126); Anion Gap 8.2 mEq/L (5-15); Aspartate Amino Transferase 30 U/L (17-59); Bilirubin,Total 0.3 mg/dl (0.2-1.3); Blood Urea Nitrogen 3 mg/dl (9-20); Calcium 7.2 mg/dl (8.4-10.2); Carbon Dioxide 20 mmol/L (22.0-30.0); Chloride 112 mmol/L (98-107); Creatinine Clearance Estimated 66 mL/min (50-200); Estimated Glomerular Filt Rate 129 ml/min (>60); GFR (African American) 156 ML/MIN (>60); Globulin 2.9 g/dL (1.3-3.2); Glucose 85 mg/dl (74-100); Potassium 3.2 mmoL/L (3.5-5.1); Sodium 137 mmol/L (136-145); Total Protein,Serum 4.9 g/dl (6.3-8.2)
--- NOTE | 2023-05-25 07:32 | EXP.DC.SUM ---
General Admission date:: 05/19/23 Discharge date: 05/25/23 HPI HPI HPI: Patient is an 82-year-old male resident of [facility] with reported history of dementia, previously detention patient, recently admitted to outside facility on 04/27/23 through 05/04/23 after presentation with nausea, vomiting, coffee-ground hematemesis. At that time CT scan revealed mildly prominent small bowel with fluid consistent with ileus or partial bowel obstruction. It sounds as though during that admission there was consideration of possible gastrostomy tube placement as he had dysphagia and did not pass swallowing study. However this improved through his hospitalization and did not require gastrostomy tube. Apparently the patient did have some transfusion. He had been a resident in a detention since February of this year in [facility] until this recent outside facility hospitalization. He had been discharged from outside facility and then readmitted shortly thereafter. Exact details of his hospitalizations are unclear after review of outside medical records however apparently he did undergo transfusion and possibly had upper endoscopy. Since discharge he has subsequently been residing with [facility]. Patient had developed symptoms of indigestion and vomiting of brown emesis. He presented to the emergency department. He was evaluated. He was found to have lactate of 4.8. He underwent CTA of the abdomen and pelvis which revealed no evidence of any active identifiable bleeding source. Patient was admitted to the hospitalist service. Surgical consultation was obtained this morning. Patient had reported prior history of tobacco abuse decades ago as well as heavy alcohol consumption. Hospital Course Hospital Course Hospital Course: Patient is a 82-year-old male who presented to hospital due to nausea and brown-colored vomiting suspicious for bleeding. Also found to have pneumonia on chest imaging. Continuing antibiotics. Stable on room air. Patient's progressive decline over the past few months. Goals of care discussion with family today. [place]ant about taking him home. Social work to assist with DME including hospital bed, bedside commode, wheelchair. Strong concern for patient being a high risk for readmission. Family open to considering hospice if patient does not do well with therapy. Pneumonia has resolved. Stable for discharge home. Problems addressed during hospitalization as follows: Pneumonia -Stable on room air at this time. Chest imaging showing right lower lobe opacification, concern for possible aspiration pneumonia. Has completed antibiotics. White cell count remained stable at 8.3 on day of discharge. No further antibiotics at this time. No oxygen requirement. Esophagitis, Hematemesis - improved Dysphagia -Dark stools resolved after admission. Was initiated on pantoprazole 40 mg IV twice daily with good tolerance. Transitioned to Protonix 40 mg daily for discharge. Surgery was consulted during admission, no plan for intervention given stability of hemoglobin and cessation of bleeding. At this time recommend avoiding aspirin and anticoagulants. Continue PPI. Hemoglobin stable, 9.6 on day of discharge. In regard to dysphagia, patient is on a pur?ed diet. Speech therapy was consulted and evaluated patient during admission. When patient is alert and awake he does better swallowing however is at risk for aspiration. Discussion with family and caregivers in regard to methods for nutrition delivery, decision made to continue with p.o. feeds knowing that there is a slight risk for aspiration. Patient is not a good candidate for a G-tube given goals of care and progressive dementia. Continue with nectar thick and pur?ed's for comfort feeds as tolerated. Hypertension Hyperlipidemia BPH -Continue doxazosin 4 mg nightly, finasteride 5 mg daily, lisinopril 20 mg daily. We will leave catheter in at discharge given urinary retention
[2023-05-25 07:56] VITALS: BP 157/115; PULSE 107; RESP 24; TEMP 37.8; O2SAT 96
--- NOTE | 2023-05-25 11:08 | PC.NURSE ---
NOTIFIED SON SOLO OF PTS DC, SOLO ASKED TO CALLED WILDER (PTS DAUGHTER IN LAW) TO GIVE REPORT TO. WENT OVER DISCHARGE PACKET AND MEDICATION LIST WITH WILDER, QUESTIONS ANSWERED. EMS NOTIFIED FOR TRANSPORT.
[2023-05-26 10:12] LABS: Free Valproic Acid (Depakote) 15.1
--- NOTE | 2023-05-27 13:56 | CARE MANAGER ---
Contacted patient's son, Fer, related to hospital stay. Denies questions or concerns and states his father is doing wonderful. REYNALDO Amaral
== END 2023-05-25 11:35 | disposition home health service (06) | DRG 368 ==
LOC: ER 00:22 → 2ND 02:23
PROVIDERS: Internal Medicine Adolescent Medicine; Nurse Practitioner Critical Care Medicine; Admitting Provider Internal Medicine; Emergency Provider Emergency Medicine; Visit Provider Internal Medicine
DX: K20.91 Esophagitis, unspecified with bleeding (principal); J69.0 Pneumonitis due to inhalation of food and vomit; E87.4 Mixed disorder of acid-base balance; F03.90 Unspecified dementia, unspecified severity, without behavioral disturbance, psychotic disturbance, mood disturbance, and anxiety; E03.9 Hypothyroidism, unspecified; N40.0 Benign prostatic hyperplasia without lower urinary tract symptoms; E78.5 Hyperlipidemia, unspecified; I10 Essential (primary) hypertension; R33.8 Other retention of urine; K59.09 Other constipation; R56.9 Unspecified convulsions; R53.81 Other malaise; R13.10 Dysphagia, unspecified; Z87.891 Personal history of nicotine dependence
CPT/HCPCS: 36415; 70450; 71045; 71275; 74018; 74174; 80048; 80053; 80165; 80202; 81001; 82009; 82803; 83605; 83690; 83735; 84436; 84443; 84484; 85007; 85014; 85018; 85025; 85048; 85049; 85610; 85730; 86850; 87040; 87086; 92526; 92610; 93005; 97163; 97167; 97530; 99285; J2405; J2543; Q9967

== ENCOUNTER 2023-10-07 19:13 | Inpatient (IN) | payer MEDICARE, OTHER, SELFPAY ==
[2023-10-07] VITALS (28 sets, daily range): BP systolic 70–151; BP diastolic 33–69; PULSE 67–103; RESP 13–22; TEMP 36.1–36.4; O2SAT 98–100; BMI 21.4
--- NOTE | 2023-10-07 19:21 | PC.NURSE ---
DR. Fragoso notified that patient flags for severe sepsis
--- NOTE | 2023-10-07 19:27 | CT_ITS ---
PROCEDURE INFORMATION: Exam: CT Head Without Contrast Exam date and time: 10/07/2023 7:30 PM Age: 83 years old Clinical indication: Other: Encephalopathy; Additional info: Encephalopathy, septic TECHNIQUE: Imaging protocol: Computed tomography of the head without contrast. Radiation optimization: All CT scans at this facility use at least one of these dose optimization techniques: automated exposure control; mA and/or kV adjustment per patient size (includes targeted exams where dose is matched to clinical indication); or iterative reconstruction. COMPARISON: CT HEAD/BRAIN WO CON 05/19/2023 1:05 AM FINDINGS: Brain: Moderate generalized cerebral/cerebellar atrophy. Moderate-severe bilateral white matter hypodensities which are nonspecific but most commonly associated with chronic microvascular ischemia in this age group. The IACs are grossly normal. No extra-axial fluid collections. No evidence of acute intracranial hemorrhage. Cerebral/cerebellar carvajal-white matter differentiation is well maintained. No CT evidence of large territory acute or subacute intracranial ischemia/infarct. No intracranial mass lesions. No midline shift or herniation. Cerebral ventricles: Moderate compensatory ventriculomegaly secondary to central atrophy. Pituitary gland and sella: The sella is grossly normal. Paranasal sinuses: Visualized paranasal sinuses are clear. Mastoid air cells: Right mastoid air cells are clear. Moderate left mastoid effusion versus mastoiditis similar to 05/19/2023. Mild chronic asymmetric fullness in the leftward nasopharynx at the torus tubarius/eustachian tube orifice with no clear mass lesion visualized. Consider ENT referral and direct visual inspection to exclude a small obstructive mucosal lesion. Orbital cavities: No acute intraorbital findings. Bones/joints: No acute osseous abnormalities. Chronic 10 mm circumscribed rounded intramedullary sclerotic lesion in the right supraorbital ridge is unchanged from 05/19/2023, most likely incidental bone island or osteoma. Consider bone scan if there is known primary malignancy. Soft tissues: The scalp and visualized soft tissues demonstrate no acute abnormality. Vasculature: Moderate calcific atherosclerosis. No asymmetric vascular hyperdensities suggestive of thrombosis are identified. IMPRESSION: 1. No acute intracranial process. No intracranial hemorrhage or mass effect. 2. Atrophy and microvascular changes consistent with age. 3. Chronic moderate left mastoid effusion versus mastoiditis with slightly increased opacification from 05/19/2023. Slight asymmetric fullness in the leftward nasopharynx at the torus tubarius and eustachian tube orifice without clear mass lesion. Consider ENT referral and direct inspection to exclude a small obstructive mucosal lesion. 4. 10 mm intramedullary rounded sclerotic lesion in the right supraorbital ridge stable in appearance from prior exam, probably an enostosis or osteoma. Consider bone scan if there is known malignancy. 5. Moderate calcific atherosclerosis.
--- NOTE | 2023-10-07 19:28 | XR_ITS ---
PROCEDURE INFORMATION: Exam: XR Chest Exam date and time: 10/07/2023 7:36 PM Age: 83 years old Clinical indication: Other: New o2 requirement TECHNIQUE: Imaging protocol: Radiologic exam of the chest. Views: 1 view. COMPARISON: CR XR CHEST PORTABLE 05/20/2023 10:36 AM FINDINGS: Lungs: Low lung volumes. No gross pulmonary infiltrates or edema pattern. Pleural spaces: No pleural effusion. No pneumothorax. Heart/Mediastinum: Heart size and pulmonary vasculature within normal limits for portable AP technique and low lung volumes. No tracheal/mediastinal shift. Bones/joints: No acute osseous abnormalities are identified. Mild thoracic spondylosis. IMPRESSION: 1. No acute thoracic process. 2. Low lung volumes.
--- NOTE | 2023-10-07 19:29 | ED_ITS ---
Discharge Plan Disposition Patient Disposition: Admitted Chief Complaint: Weakness Clinical Impressions Clinical Impression: Septic shock Discharge ED Provider: Corey Fragoso General Adult HPI General Chief complaint: Weakness Stated complaint: Failure to thrive Time Seen by Provider: 10/07/23 19:25 Mode of Arrival: EMS Source of Information: EMS Limitations: Altered Mental Status Description of Symptoms (Recalled from ER Triage Doc. by RN): 83 M presents via EMS from home after family called out for worsening UTI symptoms and failure to thrive. Patient is at his baseline per family at bedside. Arrives on 3L, but does not wear this at home, but was hypoxic around 87% RA. 20g LFA placed by EMS. History of Present Illness HPI narrative: Patient is a 83-year-old male with past medical history of indwelling Sigala, atrial fibrillation on anticoagulation, hypertension, dementia who presents emergency department for evaluation of encephalopathy. History is obtained by family members at bedside. Approximately a year and a half ago patient's and he had been placed in a care home for unknown reasons at that time. Since then he has been moved into live with his family members who are at bedside and had an indwelling Sigala prior to their assumption of care. Patient has had symptoms of decreased appetite, foul-smelling urine over the last 3 weeks. They tried to contact their family doctor who prescribed him Macrobid for 7 days which was completed yesterday. Due to persistent symptoms he presents here for continued evaluation. Patient is hard of hearing and confused at bedside and history is solely obtained by family. He also has a history of chronic bilateral shoulder pain and draws his extremities up, is bedbound at baseline, has a pressure sore that is being dressed regularly. Related Data Home Medications Medication Instructions Recorded Confirmed acetaminophen 500 mg tablet 500 mg PO Q6HP PRN Mild Pain 05/19/23 10/07/23 (Scale Score 1-4) divalproex 500 mg tablet,extended 500 mg PO BID 05/19/23 10/07/23 release 24 hr doxazosin 4 mg tablet 4 mg PO HS 05/19/23 10/07/23 finasteride 5 mg tablet 5 mg PO DAILY 05/19/23 10/07/23 levothyroxine 50 mcg tablet 50 mcg PO DAILY 05/19/23 10/07/23 lisinopril 20 mg tablet 20 mg PO DAILY 05/19/23 10/07/23 megestrol 400 mg/10 mL (10 mL) 400 mg PO BID malnutrition 05/19/23 10/07/23 oral suspension melatonin 3 mg capsule 6 mg PO HS Insomnia 05/19/23 10/07/23 memantine 10 mg tablet 10 mg PO BID 05/19/23 10/07/23 mirtazapine 15 mg tablet (Remeron) 15 mg PO HS 05/19/23 10/07/23 oxybutynin chloride 5 mg tablet 5 mg PO DAILY 05/19/23 10/07/23 rosuvastatin 10 mg tablet 10 mg PO DAILY 05/19/23 10/07/23 sennosides 8.6 mg tablet 8.6 mg PO BIDP PRN Constipation 05/19/23 10/07/23 simethicone 80 mg chewable tablet 80 mg PO QIDP PRN indegestion 05/19/23 10/07/23 Previous Rx's Medication Instructions Recorded pantoprazole 40 mg tablet,delayed 40 mg PO DAILY 30 days #30 tabs 05/25/23 release bumetanide 1 mg tablet 1 mg PO Q48H 30 days #30 tabs 06/30/23 Allergies Allergy/AdvReac Type Severity Reaction Status Date / Time No Known Drug Allergies Allergy Verified 05/19/23 00:42 [facility] Disclaimer: The information contained in this section may have been updated after the patient was seen, as this information can be updated by other users. Medical History (Updated 10/07/23 @ 22:10 by Corey Fragoso MD) Impaired mobility Chronic indwelling Sigala catheter Social History Smoking Status: Unknown if ever smoked alcohol intake: never current occupational status: retired Travel in the last 8 weeks: None ROS Obtained: Yes unobtainable due to mental status Physical Exam General General appearance: in no apparent distress Head Head exam: atraumatic and normocephalic Eye Eye exam: Present PERRL ENT ENT exam: Present mucous membranes dry Neck Neck exam: Present normal inspection Chest Chest inspection: Present normal inspection and symmetric chest wall rise Respiratory Respiratory exam: Present normal lung sounds bilaterally; Absent respiratory distress Cardiovascular Cardiovascular exam: Present regular rate and normal rhythm Abdominal Exam Abdominal exam: Present soft; Absent tenderness Extremities Exam Extremities exam: Present normal inspection and other (Capillary refill greater than 3 seconds) Back Exam Back exam: Present other (Paraspinal decubitus ulcer approximately 3 inches in circumference that is well-dressed.) Neurological Exam Neurological exam: Present alert Skin Skin exam: Present warm and dry Medical Decision Making Phil Inquiry Pt receiving controlled substance: No Vital Signs: 10/07/23 19:13 10/07/23 19:19 10/07/23 19:32 Temperature 97.6 F Temperature Source Rectal Pulse Rate Pulse Rate [Left] 103 H Respiratory Rate 22 Blood Pressure 104/43 L 92/67 L Blood Pressure [Right Arm] 104/43 L Blood Pressure Mean 70 74 Blood Pressure Mean [Right Arm] 63 Blood Pressure Source [Right Arm] Automatic Cuff Blood Pressure Position [Right Arm] Supine 02 Sat by Pulse Oximetry 98 Oxygen Delivery Method Nasal Cannula Oxygen Flow Rate (LPM) 3 10/07/23 19:45 10/07/23 20:00 10/07/23 20:31 Temperature Temperature Source Pulse Rate Pulse Rate [Left] Respiratory Rate 15 Blood Pressure 99/56 L 107/36 L Blood Pressure [Right Arm] Blood Pressure Mean 71 59 Blood Pressure Mean [Right Arm] Blood Pressure Source [Right Arm] Blood Pressure Position [Right Arm] 02 Sat by Pulse Oximetry Oxygen Delivery Method Oxygen Flow Rate (LPM) 10/07/23 20:35 10/07/23 20:37 10/07/23 20:46 Temperature Temperature Source Pulse Rate Pulse Rate [Left] Respiratory Rate 14 Blood Pressure 91/40 L 76/48 L 88/50 L Blood Pressure [Right Arm] Blood Pressure Mean 54 59 67 Blood Pressure Mean [Right Arm] Blood Pressure Source [Right Arm] Blood Pressure Position [Right Arm] 02 Sat by Pulse Oximetry 100 99 100 Oxygen Delivery Method Oxygen Flow Rate (LPM) 10/07/23 21:01 10/07/23 21:02 10/07/23 21:16 Temperature Temperature Source Pulse Rate 86 92 H Pulse Rate [Left] Respiratory Rate 14 14 Blood Pressure 75/38 L 80/44 L 100/41 L Blood Pressure [Right Arm] Blood Pressure Mean 61 55 54 Blood Pressure Mean [Right Arm] Blood Pressure Source [Right Arm] Blood Pressure Position [Right Arm] 02 Sat by Pulse Oximetry 100 100 Oxygen Delivery Method Nasal Cannula Oxygen Flow Rate (LPM) 2 10/07/23 21:31 10/07/23 21:45 10/07/23 21:49 Temperature Temperature Source Pulse Rate 87 Pulse Rate [Left] Respiratory Rate 13 18 Blood Pressure 97/37 L 70/53 L 90/34 L Blood Pressure [Right Arm] Blood Pressure Mean 57 55 53 Blood Pressure Mean [Right Arm] Blood Pressure Source [Right Arm] Blood Pressure Position [Right Arm] 02 Sat by Pulse Oximetry 99 100 Oxygen Delivery Method Oxygen Flow Rate (LPM) 10/07/23 21:53 10/07/23 21:56 10/07/23 21:59 Temperature Temperature Source Pulse Rate 67 Pulse Rate [Left] Respiratory Rate 13 14 Blood Pressure 84/51 L 92/33 L 88/41 L Blood Pressure [Right Arm] Blood Pressure Mean 57 57 63 Blood Pressure Mean [Right Arm] Blood Pressure Source [Right Arm] Blood Pressure Position [Right Arm] 02 Sat by Pulse Oximetry 99 100 Oxygen Delivery Method Nasal Cannula Oxygen Flow Rate (LPM) 2 Lab Data Lab Results 10/07/23 19:00: WBC 9.9, RBC 3.22 L, Hgb 10.4 L, Hct 32.8 L, MCV 101.9 H, MCH 32.4 H, MCHC 31.8, RDW 13.1, Plt Count 291, MPV 9.0, Neut % (Auto) 58.0, Lymph % (Auto) 32.9, [place] % (Auto) 6.1, Eos % (Auto) 1.7, Baso % (Auto) 1.4, Neut # (Auto) 5.7, Lymph # (Auto) 3.3, [place] # (Auto) 0.6, Eos # (Auto) 0.2, Baso # (Auto) 0.1, Sodium 140, Potassium 4.9, Chloride 115 H, Carbon Dioxide 20 L, Anion Gap 9.9, BUN 44 H, Creatinine 1.20, Estimated Creat Clear 44, Estimated GFR 58 L, Est GFR ( Amer) 70, Glucose 105 H, Calcium 9.8, Total Bilirubin 0.3, AST 28, ALT 17, Alkaline Phosphatase 90, Total Creatine Kinase < 20 L, C- Reactive Protein 40.9 H, Total Protein 5.7 L, Albumin 2.9 L, Globulin 2.8, A lbumin/Globulin Ratio 1.0 L 10/07/23 19:25: Lactate 2.2 H 10/07/23 19:28: VBG pH 7.26 L, VBG pCO2 37.5, VBG pO2 46.0 H, VBG HCO3 16.6 L, V BG Total CO2 17.8 L, VBG O2 Saturation 76.9 H, VBG Base Excess -10.4 L, VBG Lactic Acid 3.4 H 10/07/23 19:32: SARS-CoV-2 (PCR) Not detected, Influenza A Untype (PCR) Not detected, Influenza Type B (PCR) Not detected 10/07/23 19:00 10/07/23 19:00 Orders (Tests/Meds): ED MEDICATIONS Generic Name Dose Route Start Last Admin Trade Name Freq PRN Reason Stop Dose Admin Acetaminophen 650 mg 10/07/23 21:45 Acetaminophen 325mg Tab PO 11/06/23 21:44 Q4HP PRN Fever or Mild Pain (1-3) Enoxaparin Sodium 40 mg 10/08/23 09:00 Enoxaparin 40mg/0.4ml Syringe SQ 11/07/23 08:59 DAILY [facility] Piperacillin Sod/Tazobactam 50 mls @ 100 mls/hr 10/07/23 19:30 10/07/23 20:22 Sod 3.375 gm/ Sodium Chloride IV 10/17/23 19:29 100 mls/hr Q6H [place] Administration Norepinephrine/Dextrose 8 mg in 250 mls @ 3.75 mls/hr 10/07/23 21:45 10/07/23 22:00 Norepinephrine 8mg/250ml-D5w Premix IV 11/06/23 21:44 10 mcg/min .Q24H [place] 18.75 mls/hr Infusion Protocol 2 MCG/MIN Sodium Chloride 1,000 mls @ 50 mls/hr 10/07/23 21:45 Sod Chlor 0.9% 1000ml Bag IV 11/06/23 21:44 .Q20H [place] Miscellaneous 1 each 10/07/23 19:30 10/07/23 19:34 Vancomycin Consult Request NOTAPPLIC 11/06/23 19:29 1 each CONSULT PHARMACY [facility] Administration Morphine Sulfate 2 mg 10/07/23 21:45 Morphine 2mg/Ml Syringe IV 11/06/23 21:44 Q2HP PRN Severe Pain (7-10) Nicotine 21 mg 10/07/23 21:45 Nicotine 21mg/24hr Patch TD 11/06/23 21:44 DAILYP PRN Nicotine Cravings Ondansetron HCl 4 mg 10/07/23 21:45 Ondansetron 4mg/2ml Vial IV 11/06/23 21:44 Q8HP PRN Nausea Pantoprazole Sodium 40 mg 10/08/23 09:00 Pantoprazole 40mg Tablet PO 11/07/23 08:59 DAILY [facility] Discontinued Medications Generic Name Dose Route Start Last Admin Trade Name Alex PRN Reason Stop Dose Admin Lactated Ringer's 1,970 mls @ 985 mls/hr 10/07/23 19:25 10/07/23 20:22 Lactated Ringer's 1000 Ml Bag 30 ml/kg infuse over 2 hr (1970 ml) 10/07/23 21:24 985 mls/hr IV Administration .Q2H ONE Protocol Vancomycin/PEG/NADA/Lysine/Water 1.5 gm in 300 mls @ 150 mls/hr 10/07/23 19:45 10/07/23 20:55 Vancomycin 1.5gm/300ml (Peg) Premix IV 10/07/23 21:44 150 mls/hr ONCE ONE Administration Norepinephrine Bitartrate 8 mg 10/07/23 21:30 Norepinephrine Bit 4mg/4ml Vial IV 11/06/23 21:29 TITR [facility] ORDERS Category Date Time Status CT head/brain wo con Stat Cat Scan 10/07/23 19:27 Completed CXR --portable [XR chest portable] Stat Exams 10/07/23 19:28 Completed POCUS Point of Care (ER Only) Stat Exams 10/07/23 20:48 Ordered C-Reactive Protein Stat Lab 10/07/23 19:00 Completed Complete Blood Count Auto Diff AMLAB Lab 10/08/23 06:00 Ordered Complete Blood Count Auto Diff Stat Lab 10/07/23 19:00 Completed Comprehensive Metabolic Panel AMLAB Lab 10/08/23 06:00 Ordered Comprehensive Metabolic Panel Stat Lab 10/07/23 19:00 Completed Creatine Kinase Stat Lab 10/07/23 19:00 Completed Lactic Acid Stat Lab 10/07/23 19:25 Completed Magnesium AMLAB Lab 10/08/23 06:00 Ordered Rapid PCR Covid and Flu A/B Stat Lab 10/07/23 19:32 Completed UA [Urinalysis and Microscopic] Stat Lab 10/07/23 21:40 Ordered Blood Culture Stat Micro 10/07/23 20:06 Received Urine Culture Stat Micro 10/07/23 21:02 Received VBG [Venous Blood Gas] Stat RT 10/07/23 19:28 Completed Tissue Perfus/Sepsis Re-Eval Sepsis Re-Evaluation Performed: Yes Date Performed: 10/07/23 Time Performed: 21:18 Medical Decision Narrative: In summary patient is a 83-year-old male with past medical history described above who presents emergency department for evaluation of encephalopathy in the setting of indwelling Sigala with recently diagnosed UTI on Macrobid for 7 days, dementia. Patient is hemodynamically stable, tachycardic, tachypneic upon arrival, requiring 2 L nasal cannula. Patient does not have any significant cough and is clear to auscultation. My concern for systemic sepsis secondary to indwelling Sigala UTI that has been undertreated his high. Workup will be conducted with hematologic labs, urinalysis, blood cultures. Initial inventions include sepsis bolus, broad-spectrum antibiotics with vancomycin and Zosyn. CT head without will be obtained although less likely intracranial hemorrhage is on the differential. Initial workup reviewed by me, hematologic labs are remarkable for metabolic acidosis, no critical electrolyte abnormality. Viral swab negative. Chest x-ray shows no acute process. [id number]-etmo ultrasound at bedside shows no large pericardial effusion, normal EPSS. Patient is in bigeminy on the monitor. Shared decision-making discussion was had at bedside and patient will be DNR/DNI however we will proceed with medical management. The case was discussed with hospital medicine and they will admit the patient their service for continued evaluation at this time. Patient has presumed sepsis secondary to UTI although urinalysis is currently pending. Due to unacceptable mean arterial pressures patient was placed on Levophed titrate to MAP of greater than 65. Critical Care Critical Care Time Critical Care Time: Yes Attestation: On 10/07/23, the high probability of a clinically significant, sudden or life threatening deterioration of the following system(s) required my full and direct attention, intervention and personal management. The time I documented below is in addition to time spent performing reported procedures but includes the following listed in this critical care notation. Total Time Total Critical Care Time: 35
[2023-10-07] MEDS: VANCOMYCIN CONSULT REQUEST 1 EACH NOTAPPLIC (19:34)
[2023-10-07 19:36] LABS: Basophils # 0.1 K/mm3 (0-0.2); Basophils % 1.4 % (0.1-2.0); Chloride 115 mmol/L (98-107); Eosinophils # 0.2 K/mm3 (0.0-0.4); Eosinophils % 1.7 % (0.1-12.0); Hematocrit 32.8 % (42.0-52.0); Hemoglobin 10.4 g/dL (14.1-18.0); Lymphocytes # 3.3 K/mm3 (0.7-4.5); Lymphocytes % 32.9 % (10-50); Mean Corpuscular HGB Conc 31.8 g/dL (31.8-35.4); Mean Corpuscular Hemoglobin 32.4 pg (27.0-31.2); Mean Corpuscular Volume 101.9 fl (80-94); Monocytes # 0.6 K/mm3 (0.1-1.0); Monocytes % 6.1 % (1.7-9.3); Neutrophils # 5.7 K/mm3 (1.8-7.8); Platelet Count 291 K/mm3 (142-424); Potassium 4.9 mmoL/L (3.5-5.1); Red Blood Count 3.22 M/mm3 (4.60-6.20); Red Cell Distribution Width 13.1 % (11.5-17.5); Sodium 140 mmol/L (136-145); White Blood Count 9.9 K/mm3 (4.8-10.8)
[2023-10-07 19:37] LABS: Coronavirus 19, PCR Not Detected (NotDetected); Influenza A, PCR Not Detected (NotDetected); Influenza B, PCR Not Detected (NotDetected)
[2023-10-07 19:39] LABS: VBG Base Excess -10.4 mmol/L (-2.4-2.3); VBG HCO3 16.6 mmol/L (23-30); VBG Oxygen Saturation 76.9 % (50-70); VBG PCO2 37.5 mmol/L (35-51); VBG PH 7.26 mmol/L (7.31-7.41); VBG Total CO2 17.8 mmol/L (23-27)
[2023-10-07 19:39] LABS: Alanine Aminotransferase 17 U/L (12-78); Albumin Level 2.9 g/dl (3.5-5.0); Alkaline Phosphatase 90 U/L (38-126); Anion Gap 9.9 mEq/L (5-15); Aspartate Amino Transferase 28 U/L (17-59); Bilirubin,Total 0.3 mg/dl (0.2-1.3); Blood Urea Nitrogen 44 mg/dl (9-20); Calcium 9.8 mg/dl (8.4-10.2); Carbon Dioxide 20 mmol/L (22.0-30.0); Creatinine Clearance Estimated 44 mL/min (50-200); Estimated Glomerular Filt Rate 58 ml/min (>60); GFR (African American) 70 ML/MIN (>60); Globulin 2.8 g/dL (1.3-3.2); Glucose 105 mg/dl (74-100); Total Protein,Serum 5.7 g/dl (6.3-8.2)
[2023-10-07 19:40] LABS: Creatine Kinase < 20 U/L (55-170)
[2023-10-07 19:41] LABS: Lactate Venous 3.4 mmol/L (0.4-2.0)
[2023-10-07 19:45] LABS: C-Reactive Protein 40.9 mg/L (0-4)
[2023-10-07 19:54] LABS: Lactic Acid 2.2 mmol/L (0.7-2.1)
[2023-10-07] MEDS: LACTATED RINGERS 985 ML IV (20:22)
[2023-10-07] MEDS: PIPERACILLIN/TAZO 3.375 GM in 0.9 % SODIUM CHLORIDE 50 ML IV (20:22)
--- NOTE | 2023-10-07 20:27 | ECG_ITS ---
APPROVED REPORT Exam: Resting ECG HR:95 bpm ECG Measurements Heart Rate 95 AXES QRSd 80 QRS 53 QT 322 T 71 QTc 375 Conclusion Bigeminy with atrial fibrillation with superimposed PVCs, no ST elevation in anatomical contiguous leads Electronically signed by : JENNI HANEY, 10/07/2023 22:56:14
--- NOTE | 2023-10-07 20:28 | PC.NURSE ---
Clamped chavez at this time to collect for specimen collection. Family reports that patient usually only has an output of approximately 800 to 1200 ml per 24 hours depending on if he received his bumex that day or not. Notified provider that specimen has not been collected awaiting port collection at this time.
[2023-10-07] MEDS: VANCOMYCIN/WATER FOR INJ (PEG) 1.5 GM/300 ML PIGGYBACK IV (20:55)
--- NOTE | 2023-10-07 21:05 | PC.NURSE ---
Ultrasound at bedside for Dr. Fragoso. Notified provider of current patient blood pressures that remain mostly unresponsive to fluid at this time. One liter of LR currently complete. Provider to assess heart before continuing fluid at this time. Antibiotics are infusing. Patient currently in bigeminy on the monitor, family at bedside, patient alert, intermittently speaking with family. Collected approximately 4ml of urine from chavez collection port and sent to lab.
--- NOTE | 2023-10-07 21:12 | PC.NURSE ---
Provider to bedside for POC ultrasound.
--- NOTE | 2023-10-07 21:34 | PC.NURSE ---
ullu almeida to room to establish an USPIV for Levophed.
--- NOTE | 2023-10-07 21:47 | P.HP_ITS ---
<Statement entered by Elio Pinto MD - 10/09/23 12:26> Attending attestation Patient was seen and evaluated at the bedside myself, agree with LENI note. History of Present Illness *Admission Date: 10/07/23 *Reason for visit:: sepsis uti *History of present illness: This is a 83-year-old male with PMHx of dementia, bedound, chronic pressure ulcers, indwelling Sigala, atrial fibrillation on anticoagulation, hypertension, who presented emergency department for evaluation of encephalopathy. History is obtained by ED documentation and previous report from family members at bedside. patient unable to provide any history. Ped ED: Approximately a year and a half ago patient's and he had been placed in a long-term for unknown reasons at that time. Since then he has been moved into live with his family members who are at bedside and had an indwelling Sigala prior to their assumption of care. Patient has had symptoms of decreased appetite, foul-smelling urine over the last 3 weeks. They tried to contact their family doctor who prescribed him Macrobid for 7 days which was completed yesterday. Due to persistent symptoms he presents here for continued evaluation. Patient is hard of hearing and confused at bedside and history is solely obtained by family. He also has a history of chronic bilateral shoulder pain and draws his extremities up, is bedbound at baseline, has a pressure sore that is being dressed regularly. Admitted for treatment and management [facility] Disclaimer: The information contained in this section may have been updated after the patient was seen, as this information can be updated by other users. Medical History (Updated 10/16/23 @ 00:00 by Yudelka Zelaya) Impaired mobility Chronic indwelling Sigala catheter Social History Smoking Status: Unknown if ever smoked alcohol intake: never current occupational status: retired Travel in the last 8 weeks: None Review of Systems Review of Systems Review of systems:: unable to obtain Meds Home Medications and Allergies Home Medications Medication Instructions Recorded Confirmed Type acetaminophen 500 mg tablet 500 mg PO Q6HP PRN Mild Pain 05/19/23 10/08/23 History (Scale Score 1-4) divalproex 500 mg tablet,extended 500 mg PO BID SEIZURES 05/19/23 10/08/23 History release 24 hr finasteride 5 mg tablet 5 mg PO DAILY PROSTRATE 05/19/23 10/08/23 History levothyroxine 50 mcg tablet 50 mcg PO DAILY THYROID 05/19/23 10/08/23 History melatonin 3 mg capsule 6 mg PO HS Insomnia 05/19/23 10/08/23 History memantine 10 mg tablet 10 mg PO BID MEMORY 05/19/23 10/08/23 History mirtazapine 15 mg tablet (Remeron) 15 mg PO HS RESTLESS LEGS 05/19/23 10/08/23 History sennosides 8.6 mg tablet 8.6 mg PO BIDP PRN Constipation 05/19/23 10/08/23 History simethicone 80 mg chewable tablet 80 mg PO QIDP PRN indegestion 05/19/23 10/08/23 History bumetanide 1 mg tablet 1 mg PO Q48H PRN Fluid 30 days #0 10/12/23 10/08/23 Rx tabs levofloxacin 750 mg tablet 750 mg PO DAILY 1 day #1 tab 10/12/23 Rx megestrol 400 mg/10 mL (10 mL) 400 mg (10 mL) PO DAILY 10/12/23 10/08/23 Rx oral suspension malnutrition 30 days #0 mL sodium bicarbonate 650 mg tablet 650 mg PO BID 7 days #14 tabs 10/12/23 Rx New Prescriptions to Start Prescriptions: Otis Presley sodium bicarbonate Otis Flores Allergies Allergy/AdvReac Type Severity Reaction Status Date / Time No Known Drug Allergies Allergy Verified 05/19/23 00:42 Exam Data for Last 24 hours Vital signs and Labs for Last 24 Hours: Temp Pulse Resp BP Pulse Ox O2 Del Method O2 Flow Rate 97.6 F 87 14 97/37 L 100 Nasal Cannula 2 10/07/23 19:13 10/07/23 21:31 10/07/23 21:02 10/07/23 21:31 10/07/23 21:02 10/07/23 21:02 10/07/23 21:02 Laboratory Results - last 24 hr 10/07/23 19:00: WBC 9.9, RBC 3.22 L, Hgb 10.4 L, Hct 32.8 L, MCV 101.9 H, MCH 32.4 H, MCHC 31.8, RDW 13.1, Plt Count 291, MPV 9.0, Neut % (Auto) 58.0, Lymph % (Auto) 32.9, [place] % (Auto) 6.1, Eos % (Auto) 1.7, Baso % (Auto) 1.4, Neut # (Auto) 5.7, Lymph # (Auto) 3.3, [place] # (Auto) 0.6, Eos # (Auto) 0.2, Baso # (Auto) 0.1, Sodium 140, Potassium 4.9, Chloride 115 H, Carbon Dioxide 20 L, Anion Gap 9.9, BUN 44 H, Creatinine 1.20, Estimated Creat Clear 44, Estimated GFR 58 L, Est GFR ( Amer) 70, Glucose 105 H, Calcium 9.8, Total Bilirubin 0.3, AST 28, ALT 17, Alkaline Phosphatase 90, Total Creatine Kinase < 20 L, C- Reactive Protein 40.9 H, Total Protein 5.7 L, Albumin 2.9 L, Globulin 2.8, Albumin/Globulin Ratio 1.0 L 10/07/23 19:25: Lactate 2.2 H 10/07/23 19:28: VBG pH 7.26 L, VBG pCO2 37.5, VBG pO2 46.0 H, VBG HCO3 16.6 L, VBG Total CO2 17.8 L, VBG O2 Saturation 76.9 H, VBG Base Excess -10.4 L, VBG Lactic Acid 3.4 H 10/07/23 19:32: SARS-CoV-2 (PCR) Not detected, Influenza A Untype (PCR) Not detected, Influenza Type B (PCR) Not detected I & O for Last 24 hours: Intake & Output 10/04/23 10/05/23 10/06/23 10/07/23 23:59 23:59 23:59 23:59 Weight 65.771 kg Constitutional Constitutional: chronically ill appearing and obtunded *Routine HEENT Exam Head: Present normocephalic Eye: Present EOMI ENT: Present mucous membranes dry *Routine Neck Exam Neck: Present full ROM *Routine Respiratory Exam Respiratory: Present CTA bilaterally and symmetric chest movement *Routine Cardiovascular Exam Cardiovascular: Present Normal S1, Normal S2 and irregular rhythm *Routine Abdominal Exam Abdominal: Present soft and normoactive bowel sounds; Absent tenderness or distended *Routine Rectal Exam Rectal:: deferred *Routine Genitalia Exam Genitalia:: deferred *Routine Extremities Exam Extremities: Present edema *Routine Skin Exam Skin: Present erythema and wounds *Routine Neurological Exam Neurological: Present altered mental status; Absent oriented X3 Routine Psychiatric Exam Psychiatric: Present unable to assess H&P: Result Imaging and Cardiology EKG: Status: image reviewed by me, Preliminary report and final report Assessment and Plan *Assessment and plan (1) Encephalopathy: Status: Acute Category: Medical Code(s): G93.40 - Encephalopathy, unspecified (2) Septic shock: Status: Acute Category: Medical Code(s): A41.9 - Sepsis, unspecified organism; R65.21 - Severe sepsis with septic shock (3) Chronic indwelling Sigala catheter: Status: Acute Category: Medical Code(s): Z97.8 - Presence of other specified devices (4) Pressure ulcer of back: Status: Acute Qualifiers: Pressure injury stage: unstageable Qualified Code(s): L89.100 - Pressure ulcer of unspecified part of back, unstageable Category: Medical Code(s): L89.109 - Pressure ulcer of unspecified part of back, unspecified stage (5) Dementia: Status: Acute Qualifiers: Dementia behavioral or psychological symptom: unspecified whether behavioral, psychotic, or mood disturbance or anxiety Dementia severity: unspecified severity Dementia type: unspecified type Qualified Code(s): F03.90 - Unspecified dementia, unspecified severity, without behavioral disturbance, psychotic disturbance, mood disturbance, and anxiety Category: Medical Code(s): F03.90 - Unspecified dementia, unspecified severity, without behavioral disturbance, psychotic disturbance, mood disturbance, and anxiety (6) BPH (benign prostatic hyperplasia): Status: Acute Qualifiers: Lower urinary tract symptom detail: urinary obstruction Lower urinary tract symptom presence: symptoms present Qualified Code(s): N40.1 - Benign prostatic hyperplasia with lower urinary tract symptoms; N13.8 - Other obstructive and reflux uropathy Category: Medical Code(s): N40.0 - Benign prostatic hyperplasia without lower urinary tract symptoms (7) HTN (hypertension): Status: Acute Qualifiers: Hypertension type: unspecified Qualified Code(s): I10 - Essential (primary) hypertension Category: Medical Code(s): I10 - Essential (primary) hypertension (8) HLD (hyperlipidemia): Status: Acute Qualifiers: Hyperlipidemia type: unspecified Qualified Code(s): E78.5 - Hyperlipidemia, unspecified Category: Medical Code(s): E78.5 - Hyperlipidemia, unspecified (9) A-fib: Status: Acute Qualifiers: Atrial fibrillation type: unspecified chronic Qualified Code(s): I48.20 - Chronic atrial fibrillation, unspecified Category: Medical Code(s): I48.91 - Unspecified atrial fibrillation (10) Dysphagia: Status: Acute Qualifiers: Dysphagia type: unspecified Qualified Code(s): R13.10 - Dysphagia, unspecified Category: Medical Code(s): R13.10 - Dysphagia, unspecified (11) Impaired mobility: Status: Acute Category: Medical Code(s): Z74.09 - Other reduced mobility Plan 83-year-old male with PMHx of dementia, bedound, chronic pressure ulcers, indwelling Sigala, atrial fibrillation on anticoagulation, hypertension, who presented emergency department for evaluation of encephalopathy. on arrival Patient is hemodynamically stable, tachycardic, tachypneic upon arrival, requiring 2 L nasal cannula. Patient is in bigeminy on the monitor. Shared decision-making discussion was had at bedside and patient will be DNR/DNI however we will proceed with medical management. The case was discussed with ED patient will be admitted for rule out sepsis secondary to UTI and/or wound in fections. although urinalysis is currently pending. Due to unacceptable mean arterial pressures patient was placed on Levophed titrate to MAP of greater than 65. Plan as follow: -Acute on chronic encephalopathy: Unknown baseline patient has a history of dementia To rule out septic shock, secondary to suspected UTI in the setting of chronic Sigala Decubitus pressure ulcers infections: Admitted for medical management Started on antibiotic vancomycin and Zosyn Started on Levophed for hypotensive. Weaning off IV resuscitation Wound culture pending Blood cultures been Wound care consult. Wound care as needed Replace Sigala Urinary culture pending Monitor labs in the morning. Trending lactic acidosis. Aspiration precaution Pur?ed diet PT OT consult Other chronic conditions: Hypertension: Home medications in the setting of low blood pressure Hyperlipidemia A-fib> Resume home anticoagulation continue cardiac monitoring Impaired mobility: Bedbound. PT OT for recommendation. litigation manager consult On Protonix DNR/DNI Attending attestation Patient was seen and evaluated at the bedside myself, agree with LENI note.
[2023-10-07] MEDS: NOREPINEPHRINE BITARTRATE/D5W 8 MG/250 ML PLAST..BAG 15 MG IV (21:50)
--- NOTE | 2023-10-07 22:18 | PC.NURSE ---
Nurse to nurse report given to Sofia JACOBS via phone.
--- NOTE | 2023-10-07 22:19 | PC.NURSE ---
Confirmed with Dr. Fragoso that goal MAP is > 65 at this time.
[2023-10-07 23:40] LABS: Reflex Lactic Add Lactic Reflex
[2023-10-08] VITALS (25 sets, daily range): BP systolic 90–158; BP diastolic 37–79; PULSE 60–102; RESP 8–20; TEMP 36.2–37.4; O2SAT 97–100; BMI 21.4
[2023-10-08 00:07] LABS: Basophils # 0.1 K/mm3 (0-0.2); Basophils % 0.9 % (0.1-2.0); Eosinophils # 0.2 K/mm3 (0.0-0.4); Eosinophils % 2.1 % (0.1-12.0); Hematocrit 35.5 % (42.0-52.0); Hemoglobin 10.4 g/dL (14.1-18.0); Lymphocytes # 2.8 K/mm3 (0.7-4.5); Lymphocytes % 27.8 % (10-50); Mean Corpuscular HGB Conc 29.4 g/dL (31.8-35.4); Mean Corpuscular Hemoglobin 31.6 pg (27.0-31.2); Mean Corpuscular Volume 107.5 fl (80-94); Mean Platelet Volume 8.5 fl (7.4-10.4); Monocytes # 0.7 K/mm3 (0.1-1.0); Monocytes % 6.8 % (1.7-9.3); Neutrophils # 6.2 K/mm3 (1.8-7.8); Neutrophils % 62.4 % (37.0-80.0); Platelet Count 270 K/mm3 (142-424); Red Cell Distribution Width 13.2 % (11.5-17.5)
[2023-10-08 00:17] LABS: Chloride 115 mmol/L (98-107)
[2023-10-08 00:18] LABS: Potassium 4.5 mmoL/L (3.5-5.1); Sodium 138 mmol/L (136-145)
[2023-10-08 00:20] LABS: Blood Urea Nitrogen 39 mg/dl (9-20); Creatinine Clearance Estimated 53 mL/min (50-200); Estimated Glomerular Filt Rate 72 ml/min (>60); GFR (African American) 87 ML/MIN (>60)
[2023-10-08 00:21] LABS: Anion Gap 12.5 mEq/L (5-15); Calcium 9.3 mg/dl (8.4-10.2); Carbon Dioxide 15 mmol/L (22.0-30.0); Glucose 93 mg/dl (74-100)
[2023-10-08 00:22] LABS: Lactic Acid Follow Up (RFLX 1) 2.6 mmol/L (0.7-2.1)
[2023-10-08] MEDS: 0.9 % SODIUM CHLORIDE 1000ML 1,000 ML 50 ML IV ×2 (01:10→18:54)
[2023-10-08] MEDS: PIPERACILLIN/TAZO 3.375 GM in 0.9 % SODIUM CHLORIDE 50 ML IV ×4 (01:15→18:54)
[2023-10-08 01:56] LABS: Microscopic, Urine URINE MICROSCOPIC (MICROSCOPIC)
[2023-10-08 01:57] LABS: Appearance,Urine CLEAR (Clear); Bilirubin,Urine Negative (Negative); Blood, Urine Negative (Negative); Color,Urine YELLOW (Yellow); Glucose,Urine (UA) Negative (Negative); Ketones,Urine Negative (Negative); Leukocyte Esterase,Urine Negative (Negative); Nitrate,Urine Negative (Negative); Protein,Urine Negative (Negative); Specific Gravity, Urine 1.015 (1.005-1.030); Urobilinogen,Urine 0.2 EU/dl (0.2)
[2023-10-08 02:04] LABS: Reflex Lactic (2 hrs) Add Lactic Reflex
[2023-10-08 02:07] LABS: Bacteria,Urine Trace /lpf; Squamous Epithelial Cell,Urine Occasional #/hpf (0-5); WBC,Urine Occasional #/hpf (0-3)
[2023-10-08 03:56] LABS: Lactic Acid Follow up (RFLX 2) 1.3 mmol/L (0.7-2.1)
--- NOTE | 2023-10-08 06:22 | PC.NURSE ---
Addendum entered by Sofia Chin RN 10/10/23 21:19: [facility] Original Note: THIS RN CALLED [facility] AND THEY SAID M PHARM CAN DOSE VANC D/T DOSE NOT NEEDED AT THIS TIME
[2023-10-08 07:27] LABS: Basophils % 0.5 % (0.1-2.0); Eosinophils # 0.2 K/mm3 (0.0-0.4); Eosinophils % 2.6 % (0.1-12.0); Hematocrit 29.6 % (42.0-52.0); Hemoglobin 9.5 g/dL (14.1-18.0); Lymphocytes # 1.8 K/mm3 (0.7-4.5); Lymphocytes % 21.5 % (10-50); Mean Corpuscular HGB Conc 32.1 g/dL (31.8-35.4); Mean Corpuscular Hemoglobin 33.2 pg (27.0-31.2); Mean Corpuscular Volume 103.2 fl (80-94); Mean Platelet Volume 9.1 fl (7.4-10.4); Monocytes # 0.7 K/mm3 (0.1-1.0); Monocytes % 8.3 % (1.7-9.3); Neutrophils # 5.7 K/mm3 (1.8-7.8); Neutrophils % 67.1 % (37.0-80.0); Platelet Count 255 K/mm3 (142-424); Red Blood Count 2.87 M/mm3 (4.60-6.20); Red Cell Distribution Width 13.2 % (11.5-17.5); White Blood Count 8.5 K/mm3 (4.8-10.8)
[2023-10-08 07:32] LABS: Alanine Aminotransferase 15 U/L (12-78); Albumin Level 2.4 g/dl (3.5-5.0); Albumin/Globulin Ratio 0.9 (1.1-1.8); Alkaline Phosphatase 83 U/L (38-126); Anion Gap 10.3 mEq/L (5-15); Aspartate Amino Transferase 21 U/L (17-59); Bilirubin,Total 0.3 mg/dl (0.2-1.3); Blood Urea Nitrogen 31 mg/dl (9-20); Calcium 9.2 mg/dl (8.4-10.2); Carbon Dioxide 15 mmol/L (22.0-30.0); Chloride 117 mmol/L (98-107); Creatinine Clearance Estimated 53 mL/min (50-200); Estimated Glomerular Filt Rate 81 ml/min (>60); GFR (African American) 98 ML/MIN (>60); Globulin 2.7 g/dL (1.3-3.2); Glucose 87 mg/dl (74-100); Potassium 4.3 mmoL/L (3.5-5.1); Sodium 138 mmol/L (136-145); Total Protein,Serum 5.1 g/dl (6.3-8.2)
[2023-10-08] MEDS: VANCOMYCIN CONSULT REQUEST 1 EACH NOTAPPLIC (07:34)
--- NOTE | 2023-10-08 08:21 | P.CONPHA_ITS ---
Pharmacy Consult Date: 10/08/23 Time: 08:21 Referring provider: DR. BLANK Reason for Consult:: VANCOMYCIN DOSING Allergies Allergy/AdvReac Type Severity Reaction Status Date / Time No Known Drug Allergies Allergy Verified 05/19/23 00:42 Home Medications Medication Instructions Recorded Confirmed Type acetaminophen 500 mg tablet 500 mg PO Q6HP PRN Mild Pain 05/19/23 10/07/23 Hist ory (Scale Score 1-4) divalproex 500 mg tablet,extended 500 mg PO BID 05/19/23 10/07/23 History release 24 hr doxazosin 4 mg tablet 4 mg PO HS 05/19/23 10/07/23 History finasteride 5 mg tablet 5 mg PO DAILY 05/19/23 10/07/23 History levothyroxine 50 mcg tablet 50 mcg PO DAILY 05/19/23 10/07/23 History lisinopril 20 mg tablet 20 mg PO DAILY 05/19/23 10/07/23 History megestrol 400 mg/10 mL (10 mL) 400 mg PO BID malnutrition 05/19/23 10/07/23 History oral suspension melatonin 3 mg capsule 6 mg PO HS Insomnia 05/19/23 10/07/23 History memantine 10 mg tablet 10 mg PO BID 05/19/23 10/07/23 History mirtazapine 15 mg tablet (Remeron) 15 mg PO HS 05/19/23 10/07/23 History oxybutynin chloride 5 mg tablet 5 mg PO DAILY 05/19/23 10/07/23 History rosuvastatin 10 mg tablet 10 mg PO DAILY 05/19/23 10/07/23 History sennosides 8.6 mg tablet 8.6 mg PO BIDP PRN Constipation 05/19/23 10/07/23 History simethicone 80 mg chewable tablet 80 mg PO QIDP PRN indegestion 05/19/23 10/07/23 History pantoprazole 40 mg tablet,delayed 40 mg PO DAILY 30 days #30 tabs 05/25/23 10/07/23 Rx release bumetanide 1 mg tablet 1 mg PO Q48H 30 days #30 tabs 06/30/23 10/07/23 Rx New Prescriptions to Start Prescriptions: Height: 1.75 m Weight: 65.816 kg Laboratory Results:: Laboratory Results - last 24 hr 10/07/23 19:00: WBC 9.9, RBC 3.22 L, Hgb 10.4 L, Hct 32.8 L, MCV 101.9 H, MCH 32.4 H, MCHC 31.8, RDW 13.1, Plt Count 291, MPV 9.0, Neut % (Auto) 58.0, Lymph % (Auto) 32.9, [place] % (Auto) 6.1, Eos % (Auto) 1.7, Baso % (Auto) 1.4, Neut # (Auto) 5.7, Lymph # (Auto) 3.3, [place] # (Auto) 0.6, Eos # (Auto) 0.2, Baso # (Auto) 0.1, Sodium 140, Potassium 4.9, Chloride 115 H, Carbon Dioxide 20 L, Anion Gap 9.9, BUN 44 H, Creatinine 1.20, Estimated Creat Clear 44, Estimated GFR 58 L, Est GFR ( Amer) 70, Glucose 105 H, Calcium 9.8, Total Bilirubin 0.3, AST 28, ALT 17, Alkaline Phosphatase 90, Total Creatine Kinase < 20 L, C- Reactive Protein 40.9 H, Total Protein 5.7 L, Albumin 2.9 L, Globulin 2.8, Albumin/Globulin Ratio 1.0 L 10/07/23 19:25: Lactate 2.2 H 10/07/23 19:28: VBG pH 7.26 L, VBG pCO2 37.5, VBG pO2 46.0 H, VBG HCO3 16.6 L, VBG Total CO2 17.8 L, VBG O2 Saturation 76.9 H, VBG Base Excess -10.4 L, VBG Lactic Acid 3.4 H 10/07/23 19:32: SARS-CoV-2 (PCR) Not detected, Influenza A Untype (PCR) Not detected, Influenza Type B (PCR) Not detected 10/07/23 23:55: WBC 10.0, RBC 3.30 L, Hgb 10.4 L, Hct 35.5 L, MCV 107.5 H, MCH 31.6 H, MCHC 29.4 L, RDW 13.2, Plt Count 270, MPV 8.5, Neut % (Auto) 62.4, Lymph % (Auto) 27.8, [place] % (Auto) 6.8, Eos % (Auto) 2.1, Baso % (Auto) 0.9, Neut # (Auto) 6.2, Lymph # (Auto) 2.8, [place] # (Auto) 0.7, Eos # (Auto) 0.2, Baso # (Auto) 0.1, Sodium 138, Potassium 4.5, Chloride 115 H, Carbon Dioxide 15 L, Anion Gap 12.5, BUN 39 H, Creatinine 1.00, Estimated Creat Clear 53, Estimated GFR 72, Est GFR ( Amer) 87 D, Glucose 93, Lactate 2.6 H, Calcium 9.3 10/08/23 01:52: Urine Color Yellow, Urine Appearance Clear, Urine pH 6.0, Ur Specific [place] 1.015, Urine Protein Negative, Urine Glucose (UA) Negative, Urine Ketones Negative, Urine Blood Negative, Urine Nitrate Negative, Urine Bilirubin Negative, Urine Urobilinogen 0.2, Ur Leukocyte Esterase Negative, Urine RBC None, Urine WBC Occasional, Ur Squamous Epith Cells Occasional, Urine Bacteria Trace 10/08/23 03:42: Lactate 1.3 10/08/23 06:55: WBC 8.5, RBC 2.87 L, Hgb 9.5 L, Hct 29.6 L, MCV 103.2 H, MCH 33.2 H, MCHC 32.1, RDW 13.2, Plt Count 255, MPV 9.1, Neut % (Auto) 67.1, Lymph % (Auto) 21.5, [place] % (Auto) 8.3, Eos % (Auto) 2.6, Baso % (Auto) 0.5, Neut # (A uto) 5.7, Lymph # (Auto) 1.8, [place] # (Auto) 0.7, Eos # (Auto) 0.2, Baso # (Auto) 0.0, Sodium 138, Potassium 4.3, Chloride 117 H, Carbon Dioxide 15 L, Anion Gap 10.3, BUN 31 H, Creatinine 0.90, Estimated Creat Clear 53, Estimated GFR 81, Est GFR ( Amer) 98, Glucose 87, Calcium 9.2, Magnesium 2.0, Total Bilirubin 0.3, AST 21, ALT 15, Alkaline Phosphatase 83, Total Protein 5.1 L, Albumin 2.4 L D, Globulin 2.7, Albumin/Globulin Ratio 0.9 L Medical History: Medical History (Updated 10/08/23 @ 06:59 by Devon Bullock APRN) Impaired mobility Chronic indwelling Sigala catheter Assessment and Plan Assessment and plan all Dx Assessment and Plan for all problems:: Pharmacokinetic dosing service Objective: Patient: Floor: Age: 83 yo Serum creatinine: 1 mg/dL Height: 68.9 Inches Weight (kg): 65.81 Assessment: IBW (kg): 70.47 Dosing wt(kg): 65.81 Estimated Creatinine clearance (ml/min): 53.0 CRCL method: Cockcroft and Gault using ibw(default). Drug selected: Vancomycin Loading dose (mg): 0 Vd (liters): 52.6 (factor used: 0.8 L/kg) Bladimir (hr-1): 0.048 Half life (hrs): 14.44 Recommended dose: 1000 mg Interval: 18 hrs Infusion time (hrs): 2.0 Predicted peak (mcg/mL): 31.3 Predicted trough (mcg/mL): 14.52 Total body weight is being used for vancomycin dosing. Recommendations: PATIENT RECEIVED VANCOMYCIN 1500 MG X1 DOSE ~2100 OVERNIGHT. RECOMMEND CONTINUING WITH Vancomycin 1000 mg q 18 hrs with an expected Cpeak of 31.3 mcg/ml and an expected Ctrough of 14.52 mcg/ml. NEXT DOSE TO START AT 1500 10/08/23. ----Vanco only - ignore for aminoglycosides----- CLvanco= 2.52 L/hr AUC 0-24 /CAPRICE Data: CAPRICE 0.5 mcg/mL: AUC/CAPRICE: 1058.2 CAPRICE 1.0 mcg/mL: AUC/CAPRICE: 529.1 --------- CAPRICE 1.5 mcg/mL: AUC/CAPRICE: 352.7 CAPRICE 2.0 mcg/mL: AUC/CAPRICE: 264.6
[2023-10-08] MEDS: ENOXAPARIN 40MG/0.4ML SYRINGE 40 MG SQ (08:42)
--- NOTE | 2023-10-08 14:54 | EXP.PN ---
Subjective *Date: 10/08/23 *Time: 14:54 Interval history: patient was seen and evaluated at the bedside. No reported acute events overnight, denies chest pain, shortness of breath, nausea, vomiting, abdominal pain. Exam Data for Last 24 hours Vital signs and Labs for Last 24 Hours: Temp Pulse Resp BP Pulse Ox O2 Del Method O2 Flow Rate 97.8 F 85 20 128/52 L 100 Room Air 2 10/08/23 12:00 10/08/23 13:00 10/08/23 13:00 10/08/23 13:00 10/08/23 13:00 10/08/23 13:00 10/07/23 22:30 Laboratory Results - last 24 hr 10/07/23 19:00: WBC 9.9, RBC 3.22 L, Hgb 10.4 L, Hct 32.8 L, MCV 101.9 H, MCH 32.4 H, MCHC 31.8, RDW 13.1, Plt Count 291, MPV 9.0, Neut % (Auto) 58.0, Lymph % (Auto) 32.9, [place] % (Auto) 6.1, Eos % (Auto) 1.7, Baso % (Auto) 1.4, Neut # (Auto) 5.7, Lymph # (Auto) 3.3, [place] # (Auto) 0.6, Eos # (Auto) 0.2, Baso # (Auto) 0.1, Sodium 140, Potassium 4.9, Chloride 115 H, Carbon Dioxide 20 L, Anion Gap 9.9, BUN 44 H, Creatinine 1.20, Estimated Creat Clear 44, Estimated GFR 58 L, Est GFR ( Amer) 70, Glucose 105 H, Calcium 9.8, Total Bilirubin 0.3, AST 28, ALT 17, Alkaline Phosphatase 90, Total Creatine Kinase < 20 L, C-Reactive Protein 40.9 H, Total Protein 5.7 L, Albumin 2.9 L, Globulin 2.8, Albumin/Globulin Ratio 1.0 L 10/07/23 19:25: Lactate 2.2 H 10/07/23 19:28: VBG pH 7.26 L, VBG pCO2 37.5, VBG pO2 46.0 H, VBG HCO3 16.6 L, VBG Total CO2 17.8 L, VBG O2 Saturation 76.9 H, VBG Base Excess -10.4 L, VBG Lactic Acid 3.4 H 10/07/23 19:32: SARS-CoV-2 (PCR) Not detected, Influenza A Untype (PCR) Not detected, Influenza Type B (PCR) Not detected 10/07/23 23:55: WBC 10.0, RBC 3.30 L, Hgb 10.4 L, Hct 35.5 L, MCV 107.5 H, MCH 31.6 H, MCHC 29.4 L, RDW 13.2, Plt Count 270, MPV 8.5, Neut % (Auto) 62.4, Lymph % (Auto) 27.8, [place] % (Auto) 6.8, Eos % (Auto) 2.1, Baso % (Auto) 0.9, Neut # (Auto) 6.2, Lymph # (Auto) 2.8, [place] # (Auto) 0.7, Eos # (Auto) 0.2, Baso # (Auto) 0.1, Sodium 138, Potassium 4.5, Chloride 115 H, Carbon Dioxide 15 L, Anion Gap 12.5, BUN 39 H, Creatinine 1.00, Estimated Creat Clear 53, Estimated GFR 72, Est GFR ( Amer) 87 D, Glucose 93, Lactate 2.6 H, Calcium 9.3 10/08/23 01:52: Urine Color Yellow, Urine Appearance Clear, Urine pH 6.0, Ur Specific [place] 1.015, Urine Protein Negative, Urine Glucose (UA) Negative, Urine Ketones Negative, Urine Blood Negative, Urine Nitrate Negative, Urine Bilirubin Negative, Urine Urobilinogen 0.2, Ur Leukocyte Esterase Negative, Urine RBC None, Urine WBC Occasional, Ur Squamous Epith Cells Occasional, Urine Bacteria Trace 10/08/23 03:42: Lactate 1.3 10/08/23 06:55: WBC 8.5, RBC 2.87 L, Hgb 9.5 L, Hct 29.6 L, MCV 103.2 H, MCH 33.2 H, MCHC 32.1, RDW 13.2, Plt Count 255, MPV 9.1, Neut % (Auto) 67.1, Lymph % (Auto) 21.5, [place] % (Auto) 8.3, Eos % (Auto) 2.6, Baso % (Auto) 0.5, Neut # (Auto) 5.7, Lymph # (Auto) 1.8, [place] # (Auto) 0.7, Eos # (Auto) 0.2, Baso # (Auto) 0.0, Sodium 138, Potassium 4.3, Chloride 117 H, Carbon Dioxide 15 L, Anion Gap 10.3, BUN 31 H, Creatinine 0.90, Estimated Creat Clear 53, Estimated GFR 81, Est GFR ( Amer) 98, Glucose 87, Calcium 9.2, Magnesium 2.0, Total Bilirubin 0.3, AST 21, ALT 15, Alkaline Phosphatase 83, Total Protein 5.1 L, Albumin 2.4 L D, Globulin 2.7, Albumin/Globulin Ratio 0.9 L I & O for Last 24 hours: Intake & Output 10/05/23 10/06/23 10/07/23 10/08/23 23:59 23:59 23:59 23:59 Intake Total 26.000 / 421.750 824.500 / 824.500 Output Total 650 / 650 Balance 26.000 / -228.250 174.500 / 174.500 Weight 65.771 kg 65.816 kg Constitutional Constitutional: no acute distress *Routine HEENT Exam Head: Present normocephalic Eye: Present EOMI and PERRL ENT: Present mucous membranes moist *Routine Neck Exam Neck: Present supple; Absent lymphadenopathy *Routine Respiratory Exam Respiratory: Present CTA bilaterally *Routine Cardiovascular Exam Cardiovascular: Present RRR *Routine Abdominal Exam Abdominal: Present soft and normoactive bowel sounds; Absent tenderness *Routine Extremities Exam Extremities: Present edema; Absent cyanosis or clubbing *Routine Skin Exam Skin: Present warm; Absent rash *Routine Neurological Exam Comments: confused Assessment and Plan *Assessment and plan (1) Encephalopathy: Status: Acute Category: Medical Code(s): G93.40 - Encephalopathy, unspecified (2) Septic shock: Status: Acute Category: Medical Code(s): A41.9 - Sepsis, unspecified organism; R65.21 - Severe sepsis with septic shock (3) Chronic indwelling Sigala catheter: Status: Acute Category: Medical Code(s): Z97.8 - Presence of other specified devices (4) Pressure ulcer of back: Status: Acute Qualifiers: Pressure injury stage: unstageable Qualified Code(s): L89.100 - Pressure ulcer of unspecified part of back, unstageable Category: Medical Code(s): L89.109 - Pressure ulcer of unspecified part of back, unspecified stage (5) Dementia: Status: Acute Qualifiers: Dementia type: unspecified type Dementia severity: unspecified severity Dementia behavioral or psychological symptom: unspecified whether behavioral, psychotic, or mood disturbance or anxiety Qualified Code(s): F03.90 - Unspecified dementia, unspecified severity, without behavioral disturbance, psychotic disturbance, mood disturbance, and anxiety Category: Medical Code(s): F03.90 - Unspecified dementia, unspecified severity, without behavioral disturbance, psychotic disturbance, mood disturbance, and anxiety (6) BPH (benign prostatic hyperplasia): Status: Acute Qualifiers: Lower urinary tract symptom presence: symptoms present Lower urinary tract symptom detail: urinary obstruction Qualified Code(s): N40.1 - Benign prostatic hyperplasia with lower urinary tract symptoms; N13.8 - Other obstructive and reflux uropathy Category: Medical Code(s): N40.0 - Benign prostatic hyperplasia without lower urinary tract symptoms (7) HTN (hypertension): Status: Acute Qualifiers: Hypertension type: unspecified Qualified Code(s): I10 - Essential (primary) hypertension Category: Medical Code(s): I10 - Essential (primary) hypertension (8) HLD (hyperlipidemia): Status: Acute Qualifiers: Hyperlipidemia type: unspecified Qualified Code(s): E78.5 - Hyperlipidemia, unspecified Category: Medical Code(s): E78.5 - Hyperlipidemia, unspecified (9) A-fib: Status: Acute Qualifiers: Atrial fibrillation type: unspecified chronic Qualified Code(s): I48.20 - Chronic atrial fibrillation, unspecified Category: Medical Code(s): I48.91 - Unspecified atrial fibrillation (10) Dysphagia: Status: Acute Qualifiers: Dysphagia type: unspecified Qualified Code(s): R13.10 - Dysphagia, unspecified Category: Medical Code(s): R13.10 - Dysphagia, unspecified (11) Impaired mobility: Status: Acute Category: Medical Code(s): Z74.09 - Other reduced mobility Plan 83-year-old male with PMHx of dementia, bedound, chronic pressure ulcers, indwelling Sigala, atrial fibrillation on anticoagulation, hypertension, who presented emergency department for evaluation of encephalopathy. on arrival Patient is hemodynamically stable, tachycardic, tachypneic upon arrival, requiring 2 L nasal cannula. Patient is in bigeminy on the monitor. Shared decision-making discussion was had at bedside and patient will be DNR/DNI however we will proceed with medical management. The case was discussed with ED patient will be admitted for rule out sepsis secondary to UTI and/or wound infections. although urinalysis is currently pending. Due to unacceptable mean arterial pressures patient was placed on Levophed titrate to MAP of greater than 65. Plan as follow: -Acute on chronic encephalopathy: Unknown baseline patient has a history of dementia To rule out septic shock, secondary to suspected UTI in the setting of chronic Sigala Decubitus pressure ulcers infections: continue antibiotic vancomycin and Zosyn Started on Levophed for hypotensive. Weaning off IV resuscitation Wound culture pending Blood cultures been Wound care consult. Wound care as needed Replace Sigala Urinary culture pending Monitor labs in the morning. Trending lactic acidosis. Aspiration precaution Pur?ed diet PT OT consult Other chronic conditions: Hypertension: Home medications in the setting of low blood pressure Hyperlipidemia A-fib> Resume home anticoagulation continue cardiac monitoring Impaired mobility: Bedbound. PT OT for recommendation. horse stud manager consult On Protonix DNR/DNI continue above management
[2023-10-08] MEDS: VANCOMYCIN HCL 1,000 MG in 0.9 % SODIUM CHLORIDE 250 ML 125 MG IV (15:22)
--- NOTE | 2023-10-08 15:55 | HMH.PTEV ---
Physical Therapy Evaluation Rehab PT IP Evaluation Start: 10/08/23 07:03 Freq: ONCE Status: Active Protocol: Document 10/08/23 15:44 PDESEROUX (Rec: 10/08/23 15:55 PDESEROUX [id number]) Subjective/History History History Pt is an 83 y/o male who presented to [facility] ED on 10/07/23 for encephalopathy. Per history & physical note, approximately a year and a half ago patient's and he had been placed in a snf for unknown reasons at that time. Since then he has been moved into live with his family members who are at bedside and had an indwelling Sigala prior to their assumption of care. Patient has had symptoms of decreased appetite, foul- smelling urine over the last 3 weeks. They tried to contact their family doctor who prescribed him Macrobid for 7 days which was completed yesterday. Due to persistent symptoms he presents here for continued evaluation. Patient is hard of hearing and confused at bedside and history is solely obtained by family. He also has a history of chronic bilateral shoulder pain and draws his extremities up, is bedbound at baseline, has a pressure sore that is being dressed regularly. PMHx of dementia, bed bound, chronic pressure ulcers, indwelling Sigala, atrial fibrillation on anticoagulation, hypertension Subjective Subjective Pt poor historian and unresposive to PT during sbjective history questioning this date. Family not present at bedside to provide information on functional mobility or living environment . New diagnosis of cancer in past 12 No months? Rehab PT IP Eval Objective Appearance Patient Behavior Confused Difficulty following instructions severe Speech Pattern No Speech Ambulation Patient Able to Ambulate No Balance Ability to Arise Unable Sitting Balance Leans or slides in chair Transfers Bed Transfer Ability Total/Dependent (100%) Rehab PT IP prob,goals,plan Problems Date of Evaluation: 10/08/23 Rehab Potential Rehab Potential Innapropriate for Skilled Therapy Discharge Plan PT Discharge Plan Per history & physical note, pt is at current baseline status of bedbound requiring dependent assist to transfer from supine to sitting and maintain upright positioning therefore is inappropriate for skilled PT at this time. Pt is currently most appropiate to discharge to SNF once deemed medically stable by MD. Without long-term care, pt is at an increased risk for wounds, falls, fractures, further functional decline and increased burden of care. Eval Complexity Eval Charge Codes 58395 - Moderate Complexity PHYSICIAN CERTIFICATION: I certify the specified therapy services for Kevin Lee are required, authorized, and reviewed every 30 days.
[2023-10-09] VITALS (8 sets, daily range): BP systolic 110–143; BP diastolic 53–70; PULSE 60–94; RESP 12–19; TEMP 36.8–37.8; O2SAT 96–100; BMI 22.1
[2023-10-09] MEDS: PIPERACILLIN/TAZO 3.375 GM in 0.9 % SODIUM CHLORIDE 50 ML IV ×4 (02:10→18:16)
[2023-10-09] MEDS: ENOXAPARIN 40MG/0.4ML SYRINGE 40 MG SQ (08:08)
[2023-10-09] MEDS: VANCOMYCIN HCL 1,000 MG in 0.9 % SODIUM CHLORIDE 250 ML 125 MG IV (08:08)
[2023-10-09] MEDS: PANTOPRAZOLE 40MG VIAL 40 MG IV (12:02)
[2023-10-09] MEDS: MEMANTINE 10MG TABLET 10 MG PO ×2 (12:03→20:37)
[2023-10-09] MEDS: OXYBUTYNIN 5MG TAB 5 MG PO (12:03)
[2023-10-09] MEDS: LEVOTHYROXINE 50MCG (0.05MG) TAB 50 MCG PO (12:03)
[2023-10-09] MEDS: VALPROIC ACID IV (12:04)
[2023-10-09] MEDS: SODIUM CHLORIDE 0.9% IV (12:04)
--- NOTE | 2023-10-09 12:13 | P.PN_ITS ---
Subjective *Date: 10/09/23 *Time: 12:13 Interval history: Patient was seen and evaluated at the bedside. No reported acute events overnight patient is non verbal at baseline likely due to dementia, he is able to swallow crushed meds, he is otherwise awake Exam Data for Last 24 hours Vital signs and Labs for Last 24 Hours: Temp Pulse Resp BP Pulse Ox O2 Del Method O2 Flow Rate 99.1 F 91 H 16 134/68 100 Room Air 2 10/09/23 08:00 10/09/23 08:00 10/09/23 08:00 10/09/23 08:00 10/09/23 08:00 10/09/23 09:00 10/07/23 22:30 I & O for Last 24 hours: Intake & Output 10/06/23 10/07/23 10/08/23 10/09/23 23:59 23:59 23:59 23:59 Intake Total 26.000 / 421.750 944.500 / 2568.500 1744 / 1744 Output Total 650 / 1500 850 / 850 Balance 26.000 / -228.250 294.500 / 1068.500 894 / 894 Weight 65.771 kg 65.816 kg 67.721 kg Constitutional Constitutional: no acute distress *Routine HEENT Exam Head: Present normocephalic Eye: Present EOMI and PERRL ENT: Present mucous membranes moist *Routine Neck Exam Neck: Present supple; Absent lymphadenopathy *Routine Respiratory Exam Respiratory: Present CTA bilaterally *Routine Cardiovascular Exam Cardiovascular: Present RRR *Routine Abdominal Exam Abdominal: Present soft and normoactive bowel sounds; Absent tenderness *Routine Extremities Exam Extremities: Present edema; Absent cyanosis or clubbing *Routine Skin Exam Skin: Present warm; Absent rash *Routine Neurological Exam Comments: confused Assessment and Plan *Assessment and plan (1) Encephalopathy: Status: Acute Category: Medical Code(s): G93.40 - Encephalopathy, unspecified (2) Septic shock: Status: Acute Category: Medical Code(s): A41.9 - Sepsis, unspecified organism; R65.21 - Severe sepsis with septic shock (3) Chronic indwelling Sigala catheter: Status: Acute Category: Medical Code(s): Z97.8 - Presence of other specified devices (4) Pressure ulcer of back: Status: Acute Qualifiers: Pressure injury stage: unstageable Qualified Code(s): L89.100 - Pressure ulcer of unspecified part of back, unstageable Category: Medical Code(s): L89.109 - Pressure ulcer of unspecified part of back, unspecified stage (5) Dementia: Status: Acute Qualifiers: Dementia type: unspecified type Dementia severity: unspecified severity Dementia behavioral or psychological symptom: unspecified whether behavioral, psychotic, or mood disturbance or anxiety Qualified Code(s): F03.90 - Unspecified dementia, unspecified severity, without behavioral disturbance, psychotic disturbance, mood disturbance, and anxiety Category: Medical Code(s): F03.90 - Unspecified dementia, unspecified severity, without behavioral disturbance, psychotic disturbance, mood disturbance, and anxiety (6) BPH (benign prostatic hyperplasia): Status: Acute Qualifiers: Lower urinary tract symptom presence: symptoms present Lower urinary tract symptom detail: urinary obstruction Qualified Code(s): N40.1 - Benign prostatic hyperplasia with lower urinary tract symptoms; N13.8 - Other obstructive and reflux uropathy Category: Medical Code(s): N40.0 - Benign prostatic hyperplasia without lower urinary tract symptoms (7) HTN (hypertension): Status: Acute Qualifiers: Hypertension type: unspecified Qualified Code(s): I10 - Essential (primary) hypertension Category: Medical Code(s): I10 - Essential (primary) hypertension (8) HLD (hyperlipidemia): Status: Acute Qualifiers: Hyperlipidemia type: unspecified Qualified Code(s): E78.5 - Hyperlipidemia, unspecified Category: Medical Code(s): E78.5 - Hyperlipidemia, unspecified (9) A-fib: Status: Acute Qualifiers: Atrial fibrillation type: unspecified chronic Qualified Code(s): I48.20 - Chronic atrial fibrillation, unspecified Category: Medical Code(s): I48.91 - Unspecified atrial fibrillation (10) Dysphagia: Status: Acute Qualifiers: Dysphagia type: unspecified Qualified Code(s): R13.10 - Dysphagia, unspecified Category: Medical Code(s): R13.10 - Dysphagia, unspecified (11) Impaired mobility: Status: Acute Category: Medical Code(s): Z74.09 - Other reduced mobility Plan 83-year-old male with PMHx of dementia, bedound, chronic pressure ulcers, indwelling Sigala, atrial fibrillation on anticoagulation, hypertension, who presented emergency department for evaluation of encephalopathy. on arrival Patient is hemodynamically stable, tachycardic, tachypneic upon arrival, requiring 2 L nasal cannula. Patient is in bigeminy on the monitor. Shared decision-making discussion was had at bedside and patient will be DNR/DNI however we will proceed with medical management. The case was discussed with ED patient will be admitted for rule out sepsis secondary to UTI and/or wound infections. although urinalysis is currently pending. Due to unacceptable mean arterial pressures patient was placed on Levophed titrate to MAP of greater than 65. Plan as follow: -Acute on chronic encephalopathy: Unknown baseline patient has a history of dementia To rule out septic shock, secondary to suspected UTI in the setting of chronic Sigala Decubitus pressure ulcers infections: continue antibiotic vancomycin and Zosyn Started on Levophed for hypotensive. Weaned off now IV resuscitation Wound culture pending Blood cultures been Wound care consult. Wound care as needed Replace Sigala Urinary culture pending Aspiration precaution Pur?ed diet PT OT consult Other chronic conditions: Hypertension: Home medications in the setting of low blood pressure Hyperlipidemia A-fib> Resume home anticoagulation continue cardiac monitoring Impaired mobility: Bedbound. PT OT for recommendation. senior manager quality assurance consult On Protonix DNR/DNI continue above management, weaned off levophed, dc back to NH likely tomorrow
[2023-10-09] MEDS: 0.9 % SODIUM CHLORIDE 1000ML 1,000 ML 50 ML IV (18:17)
[2023-10-09] MEDS: ATORVASTATIN 20MG TABLET 20 MG PO (20:37)
[2023-10-09] MEDS: MELATONIN 5MG TABLET 5 MG PO (20:37)
[2023-10-09] MEDS: DOXAZOSIN 4MG TAB 4 MG PO (20:37)
[2023-10-09] MEDS: VALPROIC ACID 250 MG in 0.9 % SODIUM CHLORIDE 100 ML 105 MG IV (20:37)
[2023-10-09] MEDS: MIRTAZAPINE 15 MG TABLET PO (20:37)
[2023-10-10] VITALS: BP 115/61; PULSE 76; PULSE 80; RESP 17; TEMP 37.2; O2SAT 100
[2023-10-10] MEDS: PIPERACILLIN/TAZO 3.375 GM in 0.9 % SODIUM CHLORIDE 50 ML IV ×4 (02:33→18:56)
[2023-10-10] MEDS: VANCOMYCIN HCL 1,000 MG in 0.9 % SODIUM CHLORIDE 250 ML 125 MG IV ×2 (02:34→20:49)
[2023-10-10 04:00] VITALS: BP 150/69; PULSE 70; PULSE 88; RESP 12; TEMP 37.4; O2SAT 100; BMI 22.1
[2023-10-10] MEDS: VALPROIC ACID 250 MG in 0.9 % SODIUM CHLORIDE 100 ML 105 MG IV ×4 (05:59→20:46)
[2023-10-10] MEDS: LEVOTHYROXINE 50MCG (0.05MG) TAB 50 MCG PO (06:31)
[2023-10-10 07:06] LABS: Alanine Aminotransferase 14 U/L (12-78); Aspartate Amino Transferase 44 U/L (17-59); Calcium 8.4 mg/dl (8.4-10.2); Carbon Dioxide 14 mmol/L (22.0-30.0); Chloride 120 mmol/L (98-107); Glucose 87 mg/dl (74-100)
[2023-10-10 07:11] LABS: Anion Gap 9.5 mEq/L (5-15); Blood Urea Nitrogen 15 mg/dl (9-20); Creatinine Clearance Estimated 55 mL/min (50-200); Estimated Glomerular Filt Rate 108 ml/min (>60); GFR (African American) 131 ML/MIN (>60); Magnesium 1.9 mg/dl (1.6-2.3); Potassium 3.5 mmoL/L (3.5-5.1); Sodium 140 mmol/L (136-145)
[2023-10-10 07:12] LABS: Albumin Level 2.2 g/dl (3.5-5.0); Albumin/Globulin Ratio 0.9 (1.1-1.8); Alkaline Phosphatase 90 U/L (38-126); Bilirubin,Total 0.5 mg/dl (0.2-1.3); Globulin 2.5 g/dL (1.3-3.2); Total Protein,Serum 4.7 g/dl (6.3-8.2)
[2023-10-10 07:28] LABS: Basophils # 0.1 K/mm3 (0-0.2); Basophils % 0.7 % (0.1-2.0); Eosinophils # 0.3 K/mm3 (0.0-0.4); Eosinophils % 3.3 % (0.1-12.0); Hematocrit 25.7 % (42.0-52.0); Hemoglobin 8.3 g/dL (14.1-18.0); Lymphocytes % 34.3 % (10-50); Mean Corpuscular HGB Conc 32.4 g/dL (31.8-35.4); Mean Corpuscular Hemoglobin 32.9 pg (27.0-31.2); Mean Corpuscular Volume 101.5 fl (80-94); Mean Platelet Volume 8.4 fl (7.4-10.4); Monocytes # 0.8 K/mm3 (0.1-1.0); Monocytes % 8.7 % (1.7-9.3); Neutrophils # 4.7 K/mm3 (1.8-7.8); Platelet Count 268 K/mm3 (142-424); Red Blood Count 2.53 M/mm3 (4.60-6.20); Red Cell Distribution Width 13.2 % (11.5-17.5); White Blood Count 8.8 K/mm3 (4.8-10.8)
--- NOTE | 2023-10-10 07:53 | EXP.PHA.PN ---
Subjective *Date: 10/10/23 *Time: 07:53 Medical Exam Vital signs and Labs for Last 24 Hours: Vital Signs Temp Pulse Pulse Resp BP Pulse Ox O2 Del Method 10/10/23 05:00 Room Air 10/10/23 04:00 99.4 F 88 12 150/69 H 100 Room Air 10/10/23 04:00 70 10/10/23 03:00 Room Air 10/10/23 01:00 Room Air 10/10/23 00:00 80 10/10/23 00:00 98.9 F 76 17 115/61 100 Room Air 10/09/23 23:00 Room Air 10/09/23 21:00 Room Air 10/09/23 20:00 60 10/09/23 20:00 98.9 F 73 16 129/53 L 100 Room Air 10/09/23 20:00 Room Air 10/09/23 18:33 Room Air 10/09/23 17:00 Room Air 10/09/23 17:00 110/61 10/09/23 16:00 80 10/09/23 16:00 98.5 F 10/09/23 16:00 82 19 96 Room Air 10/09/23 15:00 Room Air 10/09/23 13:00 Room Air 10/09/23 12:00 98.2 F 78 16 141/61 H 100 10/09/23 12:00 70 10/09/23 11:00 Room Air 10/09/23 09:00 Room Air 10/09/23 08:00 96 Room Air 10/09/23 08:00 70 10/09/23 08:00 99.1 F 91 H 16 134/68 100 Room Air Intake and Output 10/09/23 10/09/23 10/10/23 15:59 23:59 07:59 Intake Total 390 / 3164 1150 / 3164 Output Total 0 / 1850 1000 / 1850 Balance 390 / 1314 150 / 1314 Intake: Intake, Oral Amount 390 / 1140 750 / 1140 Intake, Total IV Amount / 2023 Piperacillin/Tazo 3.375 gm In 0 50 / 475 .9 % Sodium Chloride 50 ml @ 100 mls/hr IV Q6H [facility] Rx#: [id number] Valproic Acid 500 mg In 0.9 % 100 / 100 Sodium Chloride 100 ml @ 105 mls/hr IV Q12 [facility] Rx#:[id number] Vancomycin HCl 1,000 mg In 0.9 250 / 250 % Sodium Chloride 250 ml @ 125 mls/hr IV Q18H [facility] Rx#:[id number] Output: Output, Urine Amount 0 / 500 500 / 500 Output, Urine Amount (Catheter) 500 / 1350 Sigala 500 / 1350 Other: Number of Voids 0 Number of Unmeasured Voids 1 Number of Bowel Movements 1 1 Weight 67.721 kg 67.857 kg Patient Weight 10/10/23 23:59 Weight 67.857 kg Laboratory Results - last 24 hr 10/10/23 06:09: Sodium 140, Potassium 3.5, Chloride 120 H, Carbon Dioxide 14 L, Anion Gap 9.5, BUN 15 D, Creatinine 0.70 D, Estimated Creat Clear 55, Estimated GFR 108, Est GFR ( Amer) 131 D, Glucose 87, Calcium 8.4, Magnesium 1.9, Total Bilirubin 0.5, AST 44 D, ALT 14, Alkaline Phosphatase 90, Total Protein 4.7 L, Albumin 2.2 L, Globulin 2.5, Albumin/Globulin Ratio 0.9 L 10/10/23 06:55: WBC 8.8, RBC 2.53 L, Hgb 8.3 L, Hct 25.7 L, MCV 101.5 H, MCH 32.9 H, MCHC 32.4, RDW 13.2, Plt Count 268, MPV 8.4, Neut % (Auto) 53.0, Lymph % (Auto) 34.3, [place] % (Auto) 8.7, Eos % (Auto) 3.3, Baso % (Auto) 0.7, Neut # (Auto) 4.7, Lymph # (Auto) 3.0, [place] # (Auto) 0.8, Eos # (Auto) 0.3, Baso # (Auto) 0.1 I & O for Labs for Last 24 Hours: Intake & Output 10/07/23 10/08/23 10/09/23 10/10/23 23:59 23:59 23:59 23:59 Intake Total 26.000 / 421.750 944.500 / 2568.500 3164 / 3164 Output Total 650 / 1500 1850 / 1850 Balance 26.000 / -228.250 294.500 / 6602.424 2327 / 1314 Weight 65.771 kg 65.816 kg 67.721 kg 67.857 kg The patient's infection will respond to the chosen ABx?: Yes (EMPIRIC THERAPY) Is the patient receiving the right drug, dose, and route?: Yes Could a more targeted ABx be ordered?: No (CULTURES STILL PENDING)
[2023-10-10 08:00] VITALS: BP 132/73; PULSE 76; RESP 20; TEMP 36.7; O2SAT 92
[2023-10-10] MEDS: OXYBUTYNIN 5MG TAB 5 MG PO (08:42)
[2023-10-10] MEDS: MEMANTINE 10MG TABLET 10 MG PO ×2 (08:42→20:50)
[2023-10-10] MEDS: ENOXAPARIN 40MG/0.4ML SYRINGE 40 MG SQ (08:42)
[2023-10-10] MEDS: PANTOPRAZOLE 40MG VIAL 40 MG IV (08:47)
[2023-10-10] MEDS: SODIUM CHLORIDE 0.9% 10ML VIAL 10 ML IV (08:47)
[2023-10-10] MEDS: SODIUM BICARBONATE 650MG TABLET 650 MG PO ×3 (08:47→20:50)
[2023-10-10] MEDS: FINASTERIDE 5MG TABLET 5 MG PO (09:31)
--- NOTE | 2023-10-10 09:43 | HMH.OTEV ---
OT Inpatient Evaluation Rehab OT IP Evaluation Start: 10/08/23 07:03 Freq: ONCE Status: Active Protocol: Document 10/10/23 09:41 BRANDON (Rec: 10/10/23 09:43 BRANDON [id number]) Rehab OT IP Assessment Subjective History Pt is an 83 y/o male who presented to [facility] ED on 10/07/23 for encephalopathy. Per history & physical note, approximately a year and a half ago patient's and he had been placed in a usp for unknown reasons at that time. Since then he has been moved into live with his family members who are at bedside and had an indwelling Sigala prior to their assumption of care. Patient has had symptoms of decreased appetite, foul- smelling urine over the last 3 weeks. They tried to contact their family doctor who prescribed him Macrobid for 7 days which was completed yesterday. Due to persistent symptoms he presents here for continued evaluation. Patient is hard of hearing and confused at bedside and history is solely obtained by family. He also has a history of chronic bilateral shoulder pain and draws his extremities up, is bedbound at baseline, has a pressure sore that is being dressed regularly. PMHx of dementia, bed bound, chronic pressure ulcers, indwelling Sigala, atrial fibrillation on anticoagulation, hypertension Subjective Pt poor historian and unresposive to OT during sbjective history questioning this date. Family not present at bedside to provide information on daily ADLs or functional transfers. Objective Bed Mobility bed mobility-scooting,bed mobility - rolling Assist Level Total/Dependent (100%) Rehab OT IP prob,goals,plan Problems Date of Evaluation: 10/10/23 Rehab Potential Rehab Potential Innapropriate for Skilled Therapy Discharge Plan OT Discharge Plan Per history & physical note, pt is at current baseline status of bedbound requiring dependent assist to transfer from supine to sitting and maintain upright positioning therefore is inappropriate for skilled OT at this time. Pt is currently most appropiate to discharge to SNF once deemed medically stable by MD. Without long-term care, pt is at an increased risk for wounds, falls, fractures, further functional decline and increased burden of care. Eval Complexity Eval Charge Codes 21916 - Moderate Complexity PHYSICIAN CERTIFICATION: I certify the specified therapy services for Kevin Lee are required, authorized, and reviewed every 30 days.
--- NOTE | 2023-10-10 09:54 | HMH.PTWOUND ---
Rehab Inpt Wound Evaluation Rehab IP Wound Evaluation Start: 10/07/23 23:45 Freq: ONCE Status: Active Protocol: Document 10/10/23 09:49 JACKELINE (Rec: 10/10/23 09:54 PHOSTEFFANIE [id number]) Rehab PT Wound Assessment Subjective Subjective Pt is an 83 y/o male who presented to [facility] ED on 10/07/23 for encephalopathy. Per history & physical note, approximately a year and a half ago patient's and he had been placed in a [place] [facility] facility for unknown reasons at that time. Since then he has been moved into live with his family members who are at bedside and had an indwelling Sigala prior to their assumption of care. Patient has had symptoms of decreased appetite, foul- smelling urine over the last 3 weeks. They tried to contact their family doctor who prescribed him Macrobid for 7 days which was completed yesterday. Due to persistent symptoms he presents here for continued evaluation. Patient is hard of hearing and confused at bedside and history is solely obtained by family. He also has a history of chronic bilateral shoulder pain and draws his extremities up, is bedbound at baseline, has a pressure sore present prior to admission that is being dressed regularly. PMHx of dementia, bed bound, chronic pressure ulcers, indwelling Sigala, atrial fibrillation on anticoagulation, hypertension Wound Left Posterior Hip Wound Type Pressure Ulcer Is This a Chronic Wound Yes Wound Staging Stage III Query Text:Stage I - Unbroken, red skin, no blanching. Stage II - Skin broken, superficial skin loss involving epidermis alone or also dermis. Partial loss of skin layers. Stage III - Pressure area involves epidermis, dermis and subcutaneous tissue, full thickness skin loss. Stage IV - Pressure area involves epidermis, subcutaneous tissue, bone and other supportive tissue. Full thickness skin loss with extensive destruction of underlying tissue and structures. Wound Length (cm) 4.0 Wound Width (cm) 5.0 Wound Depth (cm) 2.0 Wound Bed Appearance Beefy Red,Yellow,Rivas,Slough Percentage Granulated (%) 50 Percentage of Slough (%) 50 Wound Margins Description Well Defined Undermining Position 1 o'clock Undermining Depth (cm) 3.0 Surrounding Tissue Appearance [place] Wound Drainage Description Purulent Drainage Amount Moderate Drainage Odor Slight Odor Dressing Status Changed Wound Topical Solution/Irrigant Saline Irrigant Packing Type Alginate Primary Dressing Composite Wound Debridement Method Nick Parikhuze,Mechanical Wound Debridement Amount of Tissue Moderate Removed Wound Debridement Result Necrotic Tissue Remains Dressing Change Patient Tolerance Tolerated Well Plan/Recommendation Comment Will continue to follow for debridement at bedside as pt tolerates to remove as much necrotic tissue as possible. Dressing changes should only be required every 2-3 days depending on drainage amounts moving forward. Eval Complexity Eval Charge Codes 22370 - High Complexity PHYSICIAN CERTIFICATION: I certify the specified therapy services for Kevin Howard are required, authorized, and reviewed every 30 days.
--- NOTE | 2023-10-10 11:56 | DIET.NUTRFU ---
Addendum entered by Ruth Rodrigues RD, LD 10/10/23 15:35: liberalized diet, based on the amount consumed and his overall goals, cardiac diet is not needed. Original Note: Reviewing his chart, has stage III noted to L post hip. Wound eval completed see note and pictures. Patient is bed bound at home and at risk for further breakdown, prostat started BID to aid in healing. He is tolerating pureed diet with poor po intake. He requires assistance with meals on pureed diet. Nursing aid reported a couple bites consumed of sausage this morning and drank milk and apple juice. Ordered Ensure BID, confirmed it is on lunch tray. He has lost 13kg since last admit in May 2023. He triggers for severe PCM. pull worker working on possible placement vs home health. Provider plans to review POC possible hospice. Labs reviewed.
[2023-10-10 12:00] VITALS: BP 153/70; PULSE 70; RESP 20; TEMP 36.5; O2SAT 95
[2023-10-10] MEDS: PRO-STAT AWC 30ML LIQUID PACKET 30 ML PO ×2 (13:20→20:49)
[2023-10-10 16:00] VITALS: BP 109/62; PULSE 75; RESP 20; TEMP 36.6; O2SAT 97
--- NOTE | 2023-10-10 18:10 | EXP.ACUTE.PN ---
Subjective *Date: 10/10/23 *Time: 23:34 Interval history: Patient sleeping on exam. In no acute distress. On room air. No acute events overnight per nursing report. Will go for meals, taking Pro-Stat well. Medical Exam Vital signs and Labs for Last 24 Hours: Vital Signs Temp Pulse Pulse Resp BP Pulse Ox O2 Del Method 10/10/23 16:00 97.9 F 75 20 109/62 L 97 Room Air 10/10/23 12:00 97.7 F 70 20 153/70 H 95 Room Air 10/10/23 08:00 98.0 F 76 20 132/73 92 L Room Air 10/10/23 05:00 Room Air 10/10/23 04:00 99.4 F 88 12 150/69 H 100 Room Air 10/10/23 04:00 70 10/10/23 03:00 Room Air 10/10/23 01:00 Room Air 10/10/23 00:00 80 10/10/23 00:00 98.9 F 76 17 115/61 100 Room Air 10/09/23 23:00 Room Air 10/09/23 21:00 Room Air 10/09/23 20:00 60 10/09/23 20:00 98.9 F 73 16 129/53 L 100 Room Air 10/09/23 20:00 Room Air 10/09/23 18:33 Room Air Intake and Output 10/10/23 10/10/23 10/10/23 07:59 15:59 23:59 Intake Total 236 / 296 60 / 296 Output Total 400 / 700 300 / 700 Balance -164 / -404 -240 / -404 Intake: Intake, Oral Amount 236 / 296 60 / 296 Output: Output, Urine Amount 400 / 700 300 / 700 Other: Number of Unmeasured Voids 0 Number of Bowel Movements 1 Weight 67.857 kg Patient Weight 10/10/23 23:59 Weight 67.857 kg Laboratory Results - last 24 hr 10/10/23 06:09: Sodium 140, Potassium 3.5, Chloride 120 H, Carbon Dioxide 14 L, Anion Gap 9.5, BUN 15 D, Creatinine 0.70 D, Estimated Creat Clear 55, Estimated GFR 108, Est GFR ( Amer) 131 D, Glucose 87, Calcium 8.4, Magnesium 1.9, Total Bilirubin 0.5, AST 44 D, ALT 14, Alkaline Phosphatase 90, Total Protein 4.7 L, Albumin 2.2 L, Globulin 2.5, Albumin/Globulin Ratio 0.9 L 10/10/23 06:55: WBC 8.8, RBC 2.53 L, Hgb 8.3 L, Hct 25.7 L, MCV 101.5 H, MCH 32.9 H, MCHC 32.4, RDW 13.2, Plt Count 268, MPV 8.4, Neut % (Auto) 53.0, Lymph % (Auto) 34.3, [place] % (Auto) 8.7, Eos % (Auto) 3.3, Baso % (Auto) 0.7, Neut # (Auto) 4.7, Lymph # (Auto) 3.0, [place] # (Auto) 0.8, Eos # (Auto) 0.3, Baso # (Auto) 0.1 I & O for Labs for Last 24 Hours: Intake & Output 10/07/23 10/08/23 10/09/23 10/10/23 23:59 23:59 23:59 23:59 Intake Total 26.000 / 421.750 944.500 / 2568.500 3164 / 3164 296 / 296 Output Total 650 / 1500 1850 / 1850 700 / 700 Balance 26.000 / -228.250 294.500 / 7132.401 8078 / 1314 -404 / -404 Weight 65.771 kg 65.816 kg 67.721 kg 67.857 kg Microbiology Reports for the Last 24 Hours: Microbiology 10/07/23 19:50 Blood Blood Culture - Preliminary 10/08/23 08:50 Buttock Gram Stain - Final Constitutional: Present no acute distress, average body habitus and chronically ill appearing Head: Present atraumatic and normocephalic ENT: Present normal exam Neck: Present normal inspection Respiratory: Present normal respiratory effort; Absent rhonchi, wheezes or crackles Cardiac: Present Reg Rate and Rhythm GI: Present soft and normal bowel sounds; Absent distention or tenderness Extremities: Present normal inspection and full ROM Skin: Absent erythema Comment:: See pictures of wounds on backside, sacral skin breakdown with decubitus wounds overlying bilateral iliac crest Neuro: Present Grossly Intact, alert and moves all extremities Assessment and Plan *Assessment and plan (1) Encephalopathy: Status: Acute Category: Medical Code(s): G93.40 - Encephalopathy, unspecified (2) Septic shock: Status: Acute Category: Medical Code(s): A41.9 - Sepsis, unspecified organism; R65.21 - Severe sepsis with septic shock (3) Chronic indwelling Sigala catheter: Status: Acute Category: Medical Code(s): Z97.8 - Presence of other specified devices (4) Pressure ulcer of back: Status: Acute Qualifiers: Pressure injury stage: unstageable Qualified Code(s): L89.100 - Pressure ulcer of unspecified part of back, unstageable Category: Medical Code(s): L89.109 - Pressure ulcer of unspecified part of back, unspecified stage (5) Dementia: Status: Acute Qualifiers: Dementia behavioral or psychological symptom: unspecified whether behavioral, psychotic, or mood disturbance or anxiety Dementia severity: unspecified severity Dementia type: unspecified type Qualified Code(s): F03.90 - Unspecified dementia, unspecified severity, without behavioral disturbance, psychotic disturbance, mood disturbance, and anxiety Category: Medical Code(s): F03.90 - Unspecified dementia, unspecified severity, without behavioral disturbance, psychotic disturbance, mood disturbance, and anxiety (6) BPH (benign prostatic hyperplasia): Status: Acute Qualifiers: Lower urinary tract symptom detail: urinary obstruction Lower urinary tract symptom presence: symptoms present Qualified Code(s): N40.1 - Benign prostatic hyperplasia with lower urinary tract symptoms; N13.8 - Other obstructive and reflux uropathy Category: Medical Code(s): N40.0 - Benign prostatic hyperplasia without lower urinary tract symptoms (7) HTN (hypertension): Status: Acute Qualifiers: Hypertension type: unspecified Qualified Code(s): I10 - Essential (primary) hypertension Category: Medical Code(s): I10 - Essential (primary) hypertension (8) HLD (hyperlipidemia): Status: Acute Qualifiers: Hyperlipidemia type: unspecified Qualified Code(s): E78.5 - Hyperlipidemia, unspecified Category: Medical Code(s): E78.5 - Hyperlipidemia, unspecified (9) A-fib: Status: Acute Qualifiers: Atrial fibrillation type: unspecified chronic Qualified Code(s): I48.20 - Chronic atrial fibrillation, unspecified Category: Medical Code(s): I48.91 - Unspecified atrial fibrillation (10) Dysphagia: Status: Acute Qualifiers: Dysphagia type: unspecified Qualified Code(s): R13.10 - Dysphagia, unspecified Category: Medical Code(s): R13.10 - Dysphagia, unspecified (11) Impaired mobility: Status: Acute Category: Medical Code(s): Z74.09 - Other reduced mobility (12) Severe protein-calorie malnutrition: Status: Acute Category: Medical Code(s): E43 - Unspecified severe protein-calorie malnutrition (13) Metabolic acidosis: Status: Acute Category: Medical Code(s): E87.20 - Acidosis, unspecified (14) Anemia: Status: Acute Category: Medical Code(s): D64.9 - Anemia, unspecified Plan 83-year-old male with PMHx of dementia, bedound, chronic pressure ulcers, indwelling Sigala, atrial fibrillation on anticoagulation, hypertension, who presented emergency department for evaluation of encephalopathy. on arrival Patient is hemodynamically stable, tachycardic, tachypneic upon arrival, requiring 2 L nasal cannula. Patient is in bigeminy on the monitor. Shared decision-making discussion was had at bedside and patient will be DNR/DNI however we will proceed with medical management. The case was discussed with ED patient will be admitted for rule out sepsis secondary to UTI and/or wound infections. although urinalysis is currently pending. Due to unacceptable mean arterial pressures patient was placed on Levophed titrate to MAP of greater than 65. Patient is weaned off Levophed. Showing clinical stability. White cell count normal. Continues to require inpatient management pending dispo plan. Problems addressed as follows: -Acute on chronic encephalopathy: Unknown baseline patient has a history of dementia - To rule out septic shock, secondary to suspected UTI in the setting of chronic Sigala - Decubitus pressure ulcers infections: Continuing Zosyn 3.375 gram IV every 6 hours; continue vancomycin scheduled, monitoring for toxicity. Single blood culture positive for gram-positive cocci today. Urine culture still pending and negative to date Discontinued Levophed and IV fluids Wound care consult. Wound care as needed -With cell count normal 8.8. Kidney function normal with BUN 15, creatinine 0.7. Repeat CBC, CMP, magnesium ordered for the morning. Anemia: Hemoglobin 8.3, transfusion threshold hemoglobin less than 7. Monitoring closely. No overt signs of bleeding. Metabolic acidosis: Bicarb of 14. Will initiate oral bicarb repletion with sodium bicarb 650 mg p.o. 3 times daily. No anion gap at this time given elevated chloride of 120. Dysphagia: Aspiration precaution Pur?ed diet Other chronic conditions: Hypertension: holding home medications in the setting of low blood pressure Hyperlipidemia A-fib> Resume home anticoagulation continue cardiac monitoring Impaired mobility: Bedbound. PT OT for recommendation. manager marketing communications consulted to assist with dispo planning. Severe protein calorie malnutrition: Nutrition consulted, supplementation ordered including Pro-Stat. On Protonix DNR/DNI But not 40 mg subcu daily
--- NOTE | 2023-10-10 18:28 | PC.NURSE ---
Patient has not been oriented today, this is patient's baseline. Patient saw wound care today for recommendations on treatment for wounds. Patient continues to eat and drink., Patient tolerated prostat this shift.
[2023-10-10 20:00] VITALS: BP 148/73; PULSE 110; RESP 18; TEMP 36.7; O2SAT 90
--- NOTE | 2023-10-10 20:00 | PC.NURSE ---
seizure pads added to patients upper railing by this RN
[2023-10-10] MEDS: DOXAZOSIN 4MG TAB 4 MG PO (20:49)
[2023-10-10] MEDS: ATORVASTATIN 20MG TABLET 20 MG PO (20:50)
[2023-10-10] MEDS: MELATONIN 5MG TABLET 5 MG PO (20:50)
[2023-10-10] MEDS: MIRTAZAPINE 15 MG TABLET PO (20:50)
--- NOTE | 2023-10-10 20:56 | PC.NURSE ---
THIS RN SCANNED VANC, BUT IS ON STANDBY UNTIL VANC TROUGH IS RESULTED
--- NOTE | 2023-10-10 21:18 | PC.NURSE ---
LAB NOTIFIED BY THIS RN ABOUT VANC TROUGH NOT RESULTING YET; LAB STATED IT WILL RESULT IN 15 MINS
[2023-10-10 21:37] LABS: Vancomycin,Trough 16.1 ug/mL (5.0-10.0)
[2023-10-10] MEDS: PHA TO NURSING INSTRUCTION 1 EACH NOTAPPLIC (21:54)
--- NOTE | 2023-10-10 21:54 | PC.NURSE ---
verified vanc dose with KENTRELL - administered per MAR, no changes
[2023-10-11] VITALS: BP 108/68; PULSE 73; RESP 16; TEMP 36.3; O2SAT 98
[2023-10-11] MEDS: PIPERACILLIN/TAZO 3.375 GM in 0.9 % SODIUM CHLORIDE 50 ML IV ×3 (01:05→13:08)
[2023-10-11 02:10] LABS: Vancomycin,Peak 22.9 ug/ml (11-39)
[2023-10-11] MEDS: VALPROIC ACID 250 MG in 0.9 % SODIUM CHLORIDE 100 ML 105 MG IV ×4 (03:22→20:01)
[2023-10-11 04:00] VITALS: BP 122/59; PULSE 80; RESP 17; TEMP 36.7; O2SAT 98; BMI 22.0
[2023-10-11] MEDS: LEVOTHYROXINE 50MCG (0.05MG) TAB 50 MCG PO (06:37)
[2023-10-11] MEDS: PRO-STAT AWC 30ML LIQUID PACKET 30 ML PO ×2 (07:32→20:00)
[2023-10-11 07:56] LABS: Alanine Aminotransferase 17 U/L (12-78); Albumin Level 2.2 g/dl (3.5-5.0); Albumin/Globulin Ratio 0.8 (1.1-1.8); Alkaline Phosphatase 81 U/L (38-126); Anion Gap 6.3 mEq/L (5-15); Aspartate Amino Transferase 23 U/L (17-59); Basophils % 0.4 % (0.1-2.0); Bilirubin,Total 0.3 mg/dl (0.2-1.3); Blood Urea Nitrogen 14 mg/dl (9-20); Calcium 8.6 mg/dl (8.4-10.2); Carbon Dioxide 19 mmol/L (22.0-30.0); Chloride 120 mmol/L (98-107); Creatinine Clearance Estimated 54 mL/min (50-200); Eosinophils # 0.4 K/mm3 (0.0-0.4); Eosinophils % 5.4 % (0.1-12.0); Estimated Glomerular Filt Rate 129 ml/min (>60); GFR (African American) 156 ML/MIN (>60); Globulin 2.7 g/dL (1.3-3.2); Glucose 85 mg/dl (74-100); Hematocrit 27.2 % (42.0-52.0); Hemoglobin 8.8 g/dL (14.1-18.0); Lymphocytes # 2.6 K/mm3 (0.7-4.5); Lymphocytes % 37.9 % (10-50); Mean Corpuscular HGB Conc 32.4 g/dL (31.8-35.4); Mean Corpuscular Hemoglobin 32.8 pg (27.0-31.2); Mean Corpuscular Volume 101.1 fl (80-94); Mean Platelet Volume 8.2 fl (7.4-10.4); Monocytes # 0.5 K/mm3 (0.1-1.0); Monocytes % 7.4 % (1.7-9.3); Neutrophils # 3.4 K/mm3 (1.8-7.8); Neutrophils % 48.9 % (37.0-80.0); Platelet Count 291 K/mm3 (142-424); Potassium 3.3 mmoL/L (3.5-5.1); Red Blood Count 2.69 M/mm3 (4.60-6.20); Red Cell Distribution Width 13.3 % (11.5-17.5); Sodium 142 mmol/L (136-145); Total Protein,Serum 4.9 g/dl (6.3-8.2)
[2023-10-11 08:00] VITALS: BP 120/66; PULSE 70; RESP 16; TEMP 36.6; O2SAT 94
[2023-10-11 08:07] LABS: Magnesium 1.8 mg/dl (1.6-2.3)
--- NOTE | 2023-10-11 08:35 | EXP.PHA.CONS ---
Pharmacy Consult Date: 10/11/23 Time: 08:35 Referring provider: DR. BLANK Reason for Consult:: VANCOMYCIN LEVELS Allergies Allergy/AdvReac Type Severity Reaction Status Date / Time No Known Drug Allergies Allergy Verified 05/19/23 00:42 Home Medications Medication Instructions Recorded Confirmed Type acetaminophen 500 mg tablet 500 mg PO Q6HP PRN Mild Pain 05/19/23 10/08/23 History (Scale Score 1-4) divalproex 500 mg tablet,extended 500 mg PO BID SEIZURES 05/19/23 10/08/23 History release 24 hr doxazosin 4 mg tablet 4 mg PO HS PROSTRATE 05/19/23 10/08/23 History finasteride 5 mg tablet 5 mg PO DAILY PROSTRATE 05/19/23 10/08/23 History levothyroxine 50 mcg tablet 50 mcg PO DAILY THYROID 05/19/23 10/08/23 History lisinopril 20 mg tablet 20 mg PO DAILY BLOOD PRESSURE 05/19/23 10/08/23 History megestrol 400 mg/10 mL (10 mL) 400 mg PO BID malnutrition 05/19/23 10/08/23 History oral suspension melatonin 3 mg capsule 6 mg PO HS Insomnia 05/19/23 10/08/23 History memantine 10 mg tablet 10 mg PO BID MEMORY 05/19/23 10/08/23 History mirtazapine 15 mg tablet (Remeron) 15 mg PO HS RESTLESS LEGS 05/19/23 10/08/23 History oxybutynin chloride 5 mg tablet 5 mg PO DAILY BLADDER 05/19/23 10/08/23 History rosuvastatin 10 mg tablet 10 mg PO DAILY Cholesterol 05/19/23 10/08/23 History sennosides 8.6 mg tablet 8.6 mg PO BIDP PRN Constipation 05/19/23 10/08/23 History simethicone 80 mg chewable tablet 80 mg PO QIDP PRN indegestion 05/19/23 10/08/23 History bumetanide 1 mg tablet 1 mg PO Q48H Fluid 10/08/23 10/08/23 History New Prescriptions to Start Prescriptions: Height: 1.75 m Weight: 67.449 kg Laboratory Results:: Laboratory Results - last 24 hr 10/10/23 20:08: Vancomycin Trough 16.1 H 10/11/23 01:30: Vancomycin Peak 22.9 10/11/23 07:20: WBC 7.0, RBC 2.69 L, Hgb 8.8 L, Hct 27.2 L, MCV 101.1 H, MCH 32.8 H, MCHC 32.4, RDW 13.3, Plt Count 291, MPV 8.2, Neut % (Auto) 48.9, Lymph % (Auto) 37.9, [place] % (Auto) 7.4, Eos % (Auto) 5.4, Baso % (Auto) 0.4, Neut # (Auto) 3.4, Lymph # (Auto) 2.6, [place] # (Auto) 0.5, Eos # (Auto) 0.4, Baso # (Auto) 0.0, Sodium 142, Potassium 3.3 L, Chloride 120 H, Carbon Dioxide 19 L, Anion Gap 6.3, BUN 14, Creatinine 0.60 L, Estimated Creat Clear 54, Estimated GFR 129, Est GFR ( Amer) 156, Glucose 85, Calcium 8.6, Magnesium 1.8, Total Bilirubin 0.3, AST 23 D, ALT 17, Alkaline Phosphatase 81, Total Protein 4.9 L, Albumin 2.2 L, Globulin 2.7, Albumin/Globulin Ratio 0.8 L Medical History: Medical History (Updated 10/10/23 @ 23:34 by Otis Blank MD) Impaired mobility Chronic indwelling Sigala catheter Assessment and Plan Assessment and plan all Dx Assessment and Plan for all problems:: PATIENT'S VANCOMYCIN PEAK AND TROUGH WERE 22.9 MCG/ML AND 16.1 MCG/ML, RESPECTIVELY. RECOMMEND CONTINUING WITH VANCOMYCIN 1000 MG Q18H AT THIS TIME.
[2023-10-11] MEDS: MEMANTINE 10MG TABLET 10 MG PO ×2 (08:53→20:00)
[2023-10-11] MEDS: FINASTERIDE 5MG TABLET 5 MG PO (08:54)
[2023-10-11] MEDS: PANTOPRAZOLE 40MG VIAL 40 MG IV (08:54)
[2023-10-11] MEDS: SODIUM BICARBONATE 650MG TABLET 650 MG PO ×3 (08:54→20:00)
[2023-10-11] MEDS: OXYBUTYNIN 5MG TAB 5 MG PO (08:54)
[2023-10-11] MEDS: SODIUM CHLORIDE 0.9% 10ML VIAL 10 ML IV (08:54)
[2023-10-11] MEDS: ENOXAPARIN 40MG/0.4ML SYRINGE 40 MG SQ (08:54)
--- NOTE | 2023-10-11 09:23 | PC.NURSE ---
Rounded on patient, denies any needs at this time.
--- NOTE | 2023-10-11 09:36 | EXP.PHA.PN ---
Subjective *Date: 10/11/23 *Time: 09:36 Medical Exam Vital signs and Labs for Last 24 Hours: Vital Signs Temp Pulse Resp BP Pulse Ox O2 Del Method 10/11/23 08:00 97.9 F 70 16 120/66 94 L Room Air 10/11/23 06:27 Room Air 10/11/23 05:00 Room Air 10/11/23 04:00 98.0 F 80 17 122/59 L 98 Room Air 10/11/23 02:28 Room Air 10/11/23 01:00 Room Air 10/11/23 00:00 97.3 F L 73 16 108/68 L 98 Room Air 10/10/23 23:00 Room Air 10/10/23 21:00 Room Air 10/10/23 20:00 Room Air 10/10/23 20:00 98.0 F 110 H 18 148/73 H 90 L Room Air 10/10/23 16:00 97.9 F 75 20 109/62 L 97 Room Air 10/10/23 12:00 97.7 F 70 20 153/70 H 95 Room Air Intake and Output 10/10/23 10/11/23 10/11/23 23:59 07:59 15:59 Intake Total 60 / 1026 730 / 900 170 / 900 Output Total 300 / 700 500 / 500 Balance -240 / 326 230 / 400 170 / 400 Intake: Intake, Oral Amount 60 / 416 120 / 290 170 / 290 Intake, Other Amount 60 / 60 Intake, Total IV Amount 550 / 550 Piperacillin/Tazo 3.375 gm In 0 100 / 100 .9 % Sodium Chloride 50 ml @ 100 mls/hr IV Q6H [facility] Rx#: [id number] Valproic Acid 500 mg In 0.9 % 200 / 200 Sodium Chloride 100 ml @ 105 mls/hr IV Q12 [facility] Rx#:[id number] Vancomycin HCl 1,000 mg In 0.9 250 / 250 % Sodium Chloride 250 ml @ 125 mls/hr IV Q18H [facility] Rx#:[id number] Output: Output, Urine Amount 300 / 700 500 / 500 Other: Intake, Other Source Saline Solution Number of Unmeasured Voids 0 0 Weight 67.449 kg 67.449 kg Patient Weight 10/11/23 23:59 Weight 67.449 kg Laboratory Results - last 24 hr 10/10/23 20:08: Vancomycin Trough 16.1 H 10/11/23 01:30: Vancomycin Peak 22.9 10/11/23 07:20: WBC 7.0, RBC 2.69 L, Hgb 8.8 L, Hct 27.2 L, MCV 101.1 H, MCH 32.8 H, MCHC 32.4, RDW 13.3, Plt Count 291, MPV 8.2, Neut % (Auto) 48.9, Lymph % (Auto) 37.9, [place] % (Auto) 7.4, Eos % (Auto) 5.4, Baso % (Auto) 0.4, Neut # (Auto) 3.4, Lymph # (Auto) 2.6, [place] # (Auto) 0.5, Eos # (Auto) 0.4, Baso # (Auto) 0.0, Sodium 142, Potassium 3.3 L, Chloride 120 H, Carbon Dioxide 19 L, Anion Gap 6.3, BUN 14, Creatinine 0.60 L, Estimated Creat Clear 54, Estimated GFR 129, Est GFR ( Amer) 156, Glucose 85, Calcium 8.6, Magnesium 1.8, Total Bilirubin 0.3, AST 23 D, ALT 17, Alkaline Phosphatase 81, Total Protein 4.9 L, Albumin 2.2 L, Globulin 2.7, Albumin/Globulin Ratio 0.8 L I & O for Labs for Last 24 Hours: Intake & Output 10/08/23 10/09/23 10/10/23 10/11/23 23:59 23:59 23:59 23:59 Intake Total 944.500 / 2568.500 3164 / 3164 296 / 1026 900 / 900 Output Total 650 / 1500 1850 / 1850 700 / 700 500 / 500 Balance 294.500 / 9580.271 4199 / 1314 -404 / 326 400 / 400 Weight 65.816 kg 67.721 kg 67.857 kg 67.449 kg Microbiology Reports for the Last 24 Hours: Microbiology 10/07/23 19:50 Blood Blood Culture - Preliminary 10/08/23 08:50 Buttock Gram Stain - Final The patient's infection will respond to the chosen ABx?: Yes (BLOOD/URINE/WOUND CULTURES PENDING, WBC WITHIN NORMAL LIMITS, AFEBRILE 24HR) Is the patient receiving the right drug, dose, and route?: Yes Could a more targeted ABx be ordered?: No
[2023-10-11 12:00] VITALS: BP 120/95; PULSE 80; RESP 16; TEMP 36.6; O2SAT 99
[2023-10-11] MEDS: VANCOMYCIN HCL 1,000 MG in 0.9 % SODIUM CHLORIDE 250 ML 125 MG IV (15:53)
[2023-10-11 16:00] VITALS: BP 124/73; PULSE 85; RESP 16; TEMP 36.6; O2SAT 100
--- NOTE | 2023-10-11 16:48 | P.PN_ITS ---
Subjective *Date: 10/11/23 *Time: 16:58 Interval history: Patient sleeping on exam. In no acute distress. On room air. No acute events overnight per nursing report. Will go for meals, taking Pro-Stat well. Medical Exam Vital signs and Labs for Last 24 Hours: Vital Signs Temp Pulse Resp BP Pulse Ox O2 Del Method 10/11/23 16:00 97.8 F 85 16 124/73 100 Room Air 10/11/23 12:00 97.9 F 80 16 120/95 H 99 Room Air 10/11/23 08:00 97.9 F 70 16 120/66 94 L Room Air 10/11/23 06:27 Room Air 10/11/23 05:00 Room Air 10/11/23 04:00 98.0 F 80 17 122/59 L 98 Room Air 10/11/23 02:28 Room Air 10/11/23 01:00 Room Air 10/11/23 00:00 97.3 F L 73 16 108/68 L 98 Room Air 10/10/23 23:00 Room Air 10/10/23 21:00 Room Air 10/10/23 20:00 Room Air 10/10/23 20:00 98.0 F 110 H 18 148/73 H 90 L Room Air Intake and Output 10/11/23 10/11/23 10/11/23 07:59 15:59 23:59 Intake Total 730 / 1137 407 / 1137 Output Total 500 / 1125 300 / 1125 325 / 1125 Balance 230 / 12 107 / 12 -325 / 12 Intake: Intake, Oral Amount 120 / 527 407 / 527 Intake, Other Amount 60 / 60 Intake, Total IV Amount 550 / 550 Piperacillin/Tazo 3.375 gm In 0 100 / 100 .9 % Sodium Chloride 50 ml @ 100 mls/hr IV Q6H [facility] Rx#: [id number] Valproic Acid 500 mg In 0.9 % 200 / 200 Sodium Chloride 100 ml @ 105 mls/hr IV Q12 [facility] Rx#:[id number] Vancomycin HCl 1,000 mg In 0.9 250 / 250 % Sodium Chloride 250 ml @ 125 mls/hr IV Q18H [facility] Rx#:[id number] Output: Output, Urine Amount 500 / 1125 300 / 1125 325 / 1125 Other: Intake, Other Source Saline Solution Number of Unmeasured Voids 0 0 0 Weight 67.449 kg 67.449 kg Patient Weight 10/11/23 23:59 Weight 67.449 kg Laboratory Results - last 24 hr 10/10/23 20:08: Vancomycin Trough 16.1 H 10/11/23 01:30: Vancomycin Peak 22.9 10/11/23 07:20: WBC 7.0, RBC 2.69 L, Hgb 8.8 L, Hct 27.2 L, MCV 101.1 H, MCH 32.8 H, MCHC 32.4, RDW 13.3, Plt Count 291, MPV 8.2, Neut % (Auto) 48.9, Lymph % (Auto) 37.9, Vance % (Auto) 7.4, Eos % (Auto) 5.4, Baso % (Auto) 0.4, Neut # (Auto) 3.4, Lymph # (Auto) 2.6, Vance # (Auto) 0.5, Eos # (Auto) 0.4, Baso # (Auto) 0.0, Sodium 142, Potassium 3.3 L, Chloride 120 H, Carbon Dioxide 19 L, Anion Gap 6.3, BUN 14, Creatinine 0.60 L, Estimated Creat Clear 54, Estimated GFR 129, Est GFR ( Amer) 156, Glucose 85, Calcium 8.6, Magnesium 1.8, Total Bilirubin 0.3, AST 23 D, ALT 17, Alkaline Phosphatase 81, Total Protein 4 .9 L, Albumin 2.2 L, Globulin 2.7, Albumin/Globulin Ratio 0.8 L I & O for Labs for Last 24 Hours: Intake & Output 10/08/23 10/09/23 10/10/23 10/11/23 23:59 23:59 23:59 23:59 Intake Total 944.500 / 2568.500 3164 / 3164 296 / 1026 1137 / 1137 Output Total 650 / 1500 1850 / 1850 700 / 700 1125 / 1125 Balance 294.500 / 8306.089 6291 / 1314 -404 / 326 Weight 65.816 kg 67.721 kg 67.857 kg 67.449 kg Microbiology Reports for the Last 24 Hours: Microbiology 10/07/23 20:06 Blood Blood Culture - Preliminary Constitutional: Present no acute distress, average body habitus and chronically ill appearing Head: Present atraumatic and normocephalic ENT: Present normal exam Neck: Present normal inspection Respiratory: Present normal respiratory effort; Absent rhonchi, wheezes or crackles Cardiac: Present Reg Rate and Rhythm GI: Present soft and normal bowel sounds; Absent distention or tenderness Extremities: Present normal inspection and full ROM Skin: Absent erythema Comment:: See pictures of wounds on backside, sacral skin breakdown with decubitus wounds overlying bilateral iliac crest Neuro: Present Grossly Intact, alert and moves all extremities Assessment and Plan *Assessment and plan (1) Encephalopathy: Status: Acute Category: Medical Code(s): G93.40 - Encephalopathy, unspecified (2) Septic shock: Status: Acute Category: Medical Code(s): A41.9 - Sepsis, unspecified organism; R65.21 - Severe sepsis with septic shock (3) Chronic indwelling Sigala catheter: Status: Acute Category: Medical Code(s): Z97.8 - Presence of other specified devices (4) Pressure ulcer of back: Status: Acute Qualifiers: Pressure injury stage: unstageable Qualified Code(s): L89.100 - Pressure ulcer of unspecified part of back, unstageable Category: Medical Code(s): L89.109 - Pressure ulcer of unspecified part of back, unspecified stage (5) Dementia: Status: Acute Qualifiers: Dementia behavioral or psychological symptom: unspecified whether behavioral, psychotic, or mood disturbance or anxiety Dementia severity: unspecified severity Dementia type: unspecified type Qualified Code(s): F03.90 - Unspecified dementia, unspecified severity, without behavioral disturbance, psychotic disturbance, mood disturbance, and anxiety Category: Medical Code(s): F03.90 - Unspecified dementia, unspecified severity, without behavioral di sturbance, psychotic disturbance, mood disturbance, and anxiety (6) BPH (benign prostatic hyperplasia): Status: Acute Qualifiers: Lower urinary tract symptom detail: urinary obstruction Lower urinary tract symptom presence: symptoms present Qualified Code(s): N40.1 - Benign prostatic hyperplasia with lower urinary tract symptoms; N13.8 - Other obstructive and reflux uropathy Category: Medical Code(s): N40.0 - Benign prostatic hyperplasia without lower urinary tract symptoms (7) HTN (hypertension): Status: Acute Qualifiers: Hypertension type: unspecified Qualified Code(s): I10 - Essential (primary) hypertension Category: Medical Code(s): I10 - Essential (primary) hypertension (8) HLD (hyperlipidemia): Status: Acute Qualifiers: Hyperlipidemia type: unspecified Qualified Code(s): E78.5 - Hyperlipidemia, unspecified Category: Medical Code(s): E78.5 - Hyperlipidemia, unspecified (9) A-fib: Status: Acute Qualifiers: Atrial fibrillation type: unspecified chronic Qualified Code(s): I48.20 - Chronic atrial fibrillation, unspecified Category: Medical Code(s): I48.91 - Unspecified atrial fibrillation (10) Dysphagia: Status: Acute Qualifiers: Dysphagia type: unspecified Qualified Code(s): R13.10 - Dysphagia, unspecified Category: Medical Code(s): R13.10 - Dysphagia, unspecified (11) Impaired mobility: Status: Acute Category: Medical Code(s): Z74.09 - Other reduced mobility (12) Severe protein-calorie malnutrition: Status: Acute Category: Medical Code(s): E43 - Unspecified severe protein-calorie malnutrition (13) Metabolic acidosis: Status: Acute Category: Medical Code(s): E87.20 - Acidosis, unspecified (14) Anemia: Status: Acute Category: Medical Code(s): D64.9 - Anemia, unspecified Plan 83-year-old male with PMHx of dementia, bedound, chronic pressure ulcers, indwelling Sigala, atrial fibrillation on anticoagulation, hypertension, who presented emergency department for evaluation of encephalopathy. on arrival Patient is hemodynamically stable, tachycardic, tachypneic upon arrival, requiring 2 L nasal cannula. Patient is in bigeminy on the monitor. Shared decision-making discussion was had at bedside and patient will be DNR/DNI however we will proceed with medical management. The case was discussed with ED patient will be admitted for rule out sepsis secondary to UTI and/or wound infections. although urinalysis is currently pending. Due to unacceptable mean arterial pressures patient was placed on Levophed titrate to MAP of greater than 65. Patient has been off Levophed for over 48 hours. Clinically stable. Goals of care discussion with family, anticipate discharge tomorrow. Transitioned to antibiotics with levofloxacin for easier transition to oral therapy at discharge. Problems addressed as follows: -Acute on chronic encephalopathy: Unknown baseline patient has a history of dem entia - To rule out septic shock, secondary to suspected UTI in the setting of chronic Sigala - Decubitus pressure ulcers infections: Transition to levofloxacin 750 mg daily to complete 7-day course of antibiotics. Discontinue Zosyn and vancomycin Awaiting final blood culture, single culture positive, concern for commensal/contaminant. Urine culture still pending and negative to date Wound care consult. Wound care as needed With cell count normal 7.0, hemoglobin 8.8, stable. Kidney function normal with BUN 14 and creatinine 0.6. Repeat CBC, CMP, magnesium ordered for the morning. Anemia: Hemoglobin 8.8, transfusion threshold hemoglobin less than 7. Monitoring closely. No overt signs of bleeding. Metabolic acidosis: Bicarb improving at 19 today. Continue oral bicarb repletion with sodium bicarb 650 mg p.o. 3 times daily. No anion gap at this time given elevated chloride of 120. Dysphagia: Aspiration precaution Pur?ed diet Other chronic conditions: Hypertension: holding home medications in the setting of low blood pressure Hyperlipidemia A-fib> Resume home anticoagulation continue cardiac monitoring Impaired mobility: Bedbound. PT OT for recommendation. talent management manager consulted to assist with dispo planning. Severe protein calorie malnutrition: Nutrition consulted, supplementation ordered including Pro-Stat. On Protonix DNR/DNI But not 40 mg subcu daily
--- NOTE | 2023-10-11 16:48 | EXP.EVENT.NO ---
Advance care planning note: Active diagnosis: Progressive dementia, progressive debility, bedbound status, malnutrition, chronic catheter, recurring UTI, failure to thrive T,he patient's active diagnoses are of sufficient risk that focused discussion on advanced care planning is indicated in order to allow the patient to thoughtfully consider personal goals of care; and, if situations arise that prevent the ability to personally give input, to ensure appropriate representation of their personal desires through documentation or informed surrogate decision makers. Discussion: Persons present and participating in discussion: Son and [id number] Discussion: Extensive discussion about patient's continued progression of his dementia, malnutrition, bedbound status, development of wounds. Concerned that patient has continued to decline since last visit. Counseled on expected progression of his dementia and malnutrition. Family states understanding. Discussed benefits of considering hospice. They are open to this. Patient made DNR this visit. Would like to consider having hospice evaluate patient at home to focus on quality and aggressive comfort measures versus aggressive measures to prolong life. Reviewed medications, cleaned up med list. Further discussion in the morning when they are able to be at bedside with patient. Time spent: Total time spent [id number] in education and discussion directly related to advance care plannin Otis Flores 10/11/2023 17:10-17:30
[2023-10-11] MEDS: LEVOFLOXACIN/D5W 750 MG/150 ML 750 MG/150 ML PIGGYBACK 100 MG IV (18:11)
--- NOTE | 2023-10-11 18:21 | PC.NURSE ---
Patient VSS and patient not alert or oriented r/t dementia. Patient at cognitive baseline. Patient has received IV antibiotics and is tolerating oral medications.
[2023-10-11 20:00] VITALS: BP 141/70; PULSE 64; PULSE 87; RESP 16; TEMP 36.4; O2SAT 96
[2023-10-11] MEDS: DOXAZOSIN 4MG TAB 4 MG PO (20:00)
[2023-10-11] MEDS: MIRTAZAPINE 15 MG TABLET PO (20:00)
[2023-10-11] MEDS: MELATONIN 5MG TABLET 5 MG PO (20:00)
[2023-10-11] MEDS: ATORVASTATIN 20MG TABLET 20 MG PO (20:00)
[2023-10-12] VITALS (7 sets, daily range): BP systolic 84–124; BP diastolic 43–77; PULSE 56–120; RESP 14–18; TEMP 36.2–36.9; O2SAT 98–100; BMI 22.3
[2023-10-12] MEDS: VALPROIC ACID 250 MG in 0.9 % SODIUM CHLORIDE 100 ML 105 MG IV ×3 (02:43→15:08)
[2023-10-12] MEDS: LEVOTHYROXINE 50MCG (0.05MG) TAB 50 MCG PO (06:06)
--- NOTE | 2023-10-12 06:36 | PC.NURSE ---
no acute changes
[2023-10-12 06:48] LABS: Chloride 122 mmol/L (98-107); Sodium 142 mmol/L (136-145)
[2023-10-12 06:49] LABS: Potassium 3.7 mmoL/L (3.5-5.1)
[2023-10-12 06:51] LABS: Alanine Aminotransferase 16 U/L (12-78); Albumin Level 2.1 g/dl (3.5-5.0); Albumin/Globulin Ratio 0.8 (1.1-1.8); Alkaline Phosphatase 75 U/L (38-126); Anion Gap 5.7 mEq/L (5-15); Aspartate Amino Transferase 25 U/L (17-59); Bilirubin,Total 0.3 mg/dl (0.2-1.3); Blood Urea Nitrogen 15 mg/dl (9-20); Calcium 8.3 mg/dl (8.4-10.2); Carbon Dioxide 18 mmol/L (22.0-30.0); Creatinine Clearance Estimated 55 mL/min (50-200); Estimated Glomerular Filt Rate 159 ml/min (>60); GFR (African American) 193 ML/MIN (>60); Globulin 2.5 g/dL (1.3-3.2); Glucose 84 mg/dl (74-100); Total Protein,Serum 4.6 g/dl (6.3-8.2)
--- NOTE | 2023-10-12 07:30 | EXP.DC.SUM ---
General Admission date:: 10/07/23 Discharge date: 10/12/23 HPI HPI HPI: This is a 83-year-old male with PMHx of dementia, bedound, chronic pressure ulcers, indwelling Sigala, atrial fibrillation on anticoagulation, hypertension, who presented emergency department for evaluation of encephalopathy. History is obtained by ED documentation and previous report from family members at bedside. patient unable to provide any history. Ped ED: Approximately a year and a half ago patient's and he had been placed in a usp for unknown reasons at that time. Since then he has been moved into live with his family members who are at bedside and had an indwelling Sigala prior to their assumption of care. Patient has had symptoms of decreased appetite, foul-smelling urine over the last 3 weeks. They tried to contact their family doctor who prescribed him Macrobid for 7 days which was completed yesterday. Due to persistent symptoms he presents here for continued evaluation. Patient is hard of hearing and confused at bedside and history is solely obtained by family. He also has a history of chronic bilateral shoulder pain and draws his extremities up, is bedbound at baseline, has a pressure sore that is being dressed regularly. Admitted for treatment and management Hospital Course Hospital Course Hospital Course: 83-year-old male with PMHx of dementia, bedound, chronic pressure ulcers, indwelling Sigala, atrial fibrillation on anticoagulation, hypertension, who presented emergency department for evaluation of encephalopathy. on arrival Patient is hemodynamically stable, tachycardic, tachypneic upon arrival, requiring 2 L nasal cannula. Patient is in bigeminy on the monitor. Shared decision-making discussion was had at bedside and patient will be DNR/DNI however we will proceed with medical management. The case was discussed with ED patient will be admitted for rule out sepsis secondary to UTI and/or wound infections. although urinalysis is currently pending. Due to unacceptable mean arterial pressures patient was placed on Levophed titrate to MAP of greater than 65. Patient has been off Levophed for over 48 hours. Clinically stable. Goals of care discussion with family, decision to transition home with hospice. Tolerating oral antibiotics. Will complete 7 days. Stable to discharge. Problems addressed as follows: -Acute on chronic encephalopathy: Unknown baseline patient has a history of dementia - To rule out septic shock, secondary to suspected UTI in the setting of chronic Sigala - Decubitus pressure ulcers infections: Patient found to have UTI and septic shock. Initiated on antibiotics with IV Zosyn and vancomycin. Symptoms defervesced. Transition to levofloxacin to complete 7 days of antibiotics. Has 1 more dose due after discharge. Likely due to his long-term indwelling catheter. Counseled family that more than likely, he will have additional infections in the future. Blood culture still pending. Single culture positive for gram-positive cocci, likely commensal or contaminant organism. Urine culture still negative at this time. White cell count has been normal for over 72 hours. Given goals of care discussion, will discharge home with hospice. Benefits with this is there will be a nurse line available for further episodes if he has concern for recurrent infection to not delay his care at home. Continue dry gauze dressing with protective pad over decubitus wound and sacral skin breakdown. Anemia: Hemoglobin 9 on day of discharge. No transfusions during admission. Likely related to chronic disease. Metabolic acidosis: Bicarb 19 on day of discharge. Continue oral bicarb repletion with sodium bicarb 650 mg p.o. 2 times daily for 1 more week. Anticipate improvement with nutrition. No anion gap at this time given elevated chloride of 120. Dysphagia: Aspiration precaution, Pur?ed diet. Comfort feeds at home. Significant adjustments to medications. Reviewed med list with family. Given goals of care and transitioning home with hospice, discontinued several meds. Given instructions on weaning divalproex (4 behavior), Megace, and memantine. Impaired mobility: Bedbound. PT OT for recommendation. shopper insights manager consulted to assist with dispo planning. Will discharge home with hospice to provide additional resources. Severe protein calorie malnutrition: Nutrition consulted, continue protein supplementation at home. This will impair wound healing unfortunately. Discussed this with family. They understand. Total time spent on discharge 32 minutes in counseling, documentation, chart review, and direct care with patient. Exam Data for Last 24 hours Vital signs and Labs for Last 24 Hours: Temp Pulse Resp BP Pulse Ox O2 Del Method O2 Flow Rate 97.5 F L 84 16 114/57 L 98 Room Air 2 10/12/23 04:00 10/12/23 04:00 10/12/23 04:00 10/12/23 04:00 10/12/23 04:00 10/12/23 06:31 10/07/23 22:30 Laboratory Results - last 24 hr 10/11/23 07:20: WBC 7.0, RBC 2.69 L, Hgb 8.8 L, Hct 27.2 L, MCV 101.1 H, MCH 32.8 H, MCHC 32.4, RDW 13.3, Plt Count 291, MPV 8.2, Neut % (Auto) 48.9, Lymph % (Auto) 37.9, [place] % (Auto) 7.4, Eos % (Auto) 5.4, Baso % (Auto) 0.4, Neut # (Auto) 3.4, Lymph # (Auto) 2.6, [place] # (Auto) 0.5, Eos # (Auto) 0.4, Baso # (Auto) 0.0, Sodium 142, Potassium 3.3 L, Chloride 120 H, Carbon Dioxide 19 L, Anion Gap 6.3, BUN 14, Creatinine 0.60 L, Estimated Creat Clear 54, Estimated GFR 129, Est GFR ( Amer) 156, Glucose 85, Calcium 8.6, Magnesium 1.8, Total Bilirubin 0.3, AST 23 D, ALT 17, Alkaline Phosphatase 81, Total Protein 4.9 L, Albumin 2.2 L, Globulin 2.7, Albumin/Globulin Ratio 0.8 L 10/12/23 06:16: Sodium 142, Potassium 3.7, Chloride 122 H, Carbon Dioxide 18 L, Anion Gap 5.7, BUN 15, Creatinine 0.50 L, Estimated Creat Clear 55, Estimated GFR 159, Est GFR ( Amer) 193 D, Glucose 84, Calcium 8.3 L, Total Bilirubin 0.3, AST 25, ALT 16, Alkaline Phosphatase 75, Total Protein 4.6 L, Albumin 2.1 L, Globulin 2.5, Albumin/Globulin Ratio 0.8 L I & O for Last 24 hours: Intake & Output 10/09/23 10/10/23 10/11/23 10/12/23 23:59 23:59 23:59 23:59 Intake Total 3164 / 3164 296 / 1026 1307 / 1717 410 / 410 Output Total 1850 / 1850 700 / 700 1325 / 1325 500 / 500 Balance 1314 / 1314 -404 / 326 -18 / 392 -90 / -90 Weight 67.721 kg 67.857 kg 67.449 kg 68.356 kg Microbiology Reports for the Last 24 Hours: Microbiology 10/07/23 21:02 Urine,Sigala Port Urine Culture - Preliminary 10/07/23 20:06 Blood Blood Culture - Preliminary 10/07/23 19:50 Blood Blood Culture - Preliminary Constitutional Constitutional: no acute distress, thin, chronically ill appearing and cooperative *Routine HEENT Exam Head: Present normocephalic Eye: Present EOMI and PERRL ENT: Present mucous membranes moist *Routine Neck Exam Neck: Present supple; Absent lymphadenopathy *Routine Respiratory Exam Respiratory: Present CTA bilaterally; Absent rhonchi *Routine Cardiovascular Exam Cardiovascular: Present RRR *Routine Abdominal Exam Abdominal: Present soft and normoactive bowel sounds; Absent tenderness *Routine Rectal Exam Patient deferred: visual exam *Routine Exam Patient deferred: penile exam *Routine Extremities Exam Extremities: Present edema (1+ in bilateral lower extremity and upper extremity); Absent cyanosis or clubbing Routine Back/Spine/Pelvis Exam Comments: See nurse notes for pictures of sacral skin breakdown and decubitus wound left hip. *Routine Skin Exam Skin: Present intact and warm; Absent rash *Routine Neurological Exam Neurological: Present alert and moving all extremities; Absent altered mental status Comments: oriented to self, pleasantly demented Results Data Completed and Pending Labs on day of discharge: Labs from last 24 hours 10/12/23 10/11/23 06:16 07:20 WBC 7.0 RBC 2.69 L Hgb 8.8 L Hct 27.2 L MCV 101.1 H MCH 32.8 H MCHC 32.4 RDW 13.3 Plt Count 291 MPV 8.2 Neut % (Auto) 48.9 Lymph % (Auto) 37.9 [place] % (Auto) 7.4 Eos % (Auto) 5.4 Baso % (Auto) 0.4 Neut # (Auto) 3.4 Lymph # (Auto) 2.6 [place] # (Auto) 0.5 Eos # (Auto) 0.4 Baso # (Auto) 0.0 Sodium 142 142 Potassium 3.7 3.3 L Chloride 122 H 120 H Carbon Dioxide 18 L 19 L Anion Gap 5.7 6.3 BUN 15 14 Creatinine 0.50 L 0.60 L Estimated Creat Clear 55 54 Estimated GFR 159 129 Est GFR ( Amer) 193 D 156 Glucose 84 85 Calcium 8.3 L 8.6 Magnesium 1.8 Total Bilirubin 0.3 0.3 AST 25 23 D ALT 16 17 Alkaline Phosphatase 75 81 Total Protein 4.6 L 4.9 L Albumin 2.1 L 2.2 L Globulin 2.5 2.7 Albumin/Globulin Ratio 0.8 L 0.8 L Preliminary micro results at discharge 10/07/23 21:02 Urine Culture - Preliminary Urine,Sigala Port 10/07/23 20:06 Blood Culture - Preliminary Blood 10/07/23 19:50 Blood Culture - Preliminary Blood DS: Diagnosis Discharge Diagnosis (1) Encephalopathy: Status: Acute Code(s): G93.40 - Encephalopathy, unspecified (2) Septic shock: Status: Acute Code(s): A41.9 - Sepsis, unspecified organism; R65.21 - Severe sepsis with septic shock (3) Chronic indwelling Sigala catheter: Status: Acute Code(s): Z97.8 - Presence of other specified devices (4) Pressure ulcer of back: Status: Acute Code(s): L89.109 - Pressure ulcer of unspecified part of back, unspecified stage Qualifiers: Pressure injury stage: unstageable Qualified Code(s): L89.100 - Pressure ulcer of unspecified part of back, unstageable (5) Dementia: Status: Acute Code(s): F03.90 - Unspecified dementia, unspecified severity, without behavioral disturbance, psychotic disturbance, mood disturbance, and anxiety Qualifiers: Dementia behavioral or psychological symptom: unspecified whether behavioral, psychotic, or mood disturbance or anxiety Dementia severity: unspecified severity Dementia type: unspecified type Qualified Code(s): F03.90 - Unspecified dementia, unspecified severity, without behavioral disturbance, psychotic disturbance, mood disturbance, and anxiety (6) BPH (benign prostatic hyperplasia): Status: Acute Code(s): N40.0 - Benign prostatic hyperplasia without lower urinary tract symptoms Qualifiers: Lower urinary tract symptom detail: urinary obstruction Lower urinary tract symptom presence: symptoms present Qualified Code(s): N40.1 - Benign prostatic hyperplasia with lower urinary tract symptoms; N13.8 - Other obstructive and reflux uropathy (7) HTN (hypertension): Status: Acute Code(s): I10 - Essential (primary) hypertension Qualifiers: Hypertension type: unspecified Qualified Code(s): I10 - Essential (primary) hypertension (8) HLD (hyperlipidemia): Status: Acute Code(s): E78.5 - Hyperlipidemia, unspecified Qualifiers: Hyperlipidemia type: unspecified Qualified Code(s): E78.5 - Hyperlipidemia, unspecified (9) A-fib: Status: Acute Code(s): I48.91 - Unspecified atrial fibrillation Qualifiers: Atrial fibrillation type: unspecified chronic Qualified Code(s): I48.20 - Chronic atrial fibrillation, unspecified (10) Dysphagia: Status: Acute Code(s): R13.10 - Dysphagia, unspecified Qualifiers: Dysphagia type: unspecified Qualified Code(s): R13.10 - Dysphagia, unspecified (11) Impaired mobility: Status: Acute Code(s): Z74.09 - Other reduced mobility (12) Severe protein-calorie malnutrition: Status: Acute Code(s): E43 - Unspecified severe protein-calorie malnutrition (13) Metabolic acidosis: Status: Acute Code(s): E87.20 - Acidosis, unspecified (14) Anemia: Status: Acute Code(s): D64.9 - Anemia, unspecified Meds Home Medications and Allergies Home Medications Medication Instructions Recorded Confirmed Type acetaminophen 500 mg tablet 500 mg PO Q6HP PRN Mild Pain 05/19/23 10/08/23 History (Scale Score 1-4) divalproex 500 mg tablet,extended 500 mg PO BID SEIZURES 05/19/23 10/08/23 History release 24 hr finasteride 5 mg tablet 5 mg PO DAILY PROSTRATE 05/19/23 10/08/23 History levothyroxine 50 mcg tablet 50 mcg PO DAILY THYROID 05/19/23 10/08/23 History melatonin 3 mg capsule 6 mg PO HS Insomnia 05/19/23 10/08/23 History memantine 10 mg tablet 10 mg PO BID MEMORY 05/19/23 10/08/23 History mirtazapine 15 mg tablet (Remeron) 15 mg PO HS RESTLESS LEGS 05/19/23 10/08/23 History sennosides 8.6 mg tablet 8.6 mg PO BIDP PRN Constipation 05/19/23 10/08/23 History simethicone 80 mg chewable tablet 80 mg PO QIDP PRN indegestion 05/19/23 10/08/23 History bumetanide 1 mg tablet 1 mg PO Q48H PRN Fluid 30 days #0 10/12/23 10/08/23 Rx tabs levofloxacin 750 mg tablet 750 mg PO DAILY 1 day #1 tab 10/12/23 Rx megestrol 400 mg/10 mL (10 mL) 400 mg (10 mL) PO DAILY 10/12/23 10/08/23 Rx oral suspension malnutrition 30 days #0 mL sodium bicarbonate 650 mg tablet 650 mg PO BID 7 days #14 tabs 10/12/23 Rx New Prescriptions to Start Prescriptions: Otis Presley sodium bicarbonate Otis Flores Allergies Allergy/AdvReac Type Severity Reaction Status Date / Time No Known Drug Allergies Allergy Verified 05/19/23 00:42 Discharge Plan Disposition Patient Disposition: Hospice - Home Condition: Fair Discharge Order Discharge Orders: Discharge Order (Routine); Ordered 10/12/23 Ordered By: Otis Flores Follow up Plan Prescriptions/Medication Reconciliation: New sodium bicarbonate 650 mg Tablet 650 mg PO BID 7 Days Qty: 14 0RF levofloxacin 750 mg Tablet 750 mg PO DAILY 1 Days Qty: 1 0RF Continued levothyroxine 50 mcg Tablet 50 mcg PO DAILY divalproex 500 mg Tablet Extended Release 24 Hr 500 mg PO BID finasteride 5 mg Tablet 5 mg PO DAILY acetaminophen 500 mg Tablet 500 mg PO Q6HP PRN (Reason: Mild Pain (Scale Score 1-4)) simethicone 80 mg Tablet,Chewable 80 mg PO QIDP PRN (Reason: indegestion) melatonin 3 mg Capsule 6 mg PO HS memantine 10 mg Tablet 10 mg PO BID sennosides 8.6 mg Tablet 8.6 mg PO BIDP PRN (Reason: Constipation) mirtazapine [Remeron] 15 mg Tablet 15 mg PO HS Changed bumetanide 1 mg tablet 1 mg PO Q48H PRN (Reason: Fluid) 30 Days Qty: 0 0RF megestrol 400 mg/10 mL (10 mL) Suspension 400 mg PO DAILY 30 Days Qty: 0 0RF Discontinued lisinopril 20 mg Tablet 20 mg PO DAILY doxazosin 4 mg Tablet 4 mg PO HS rosuvastatin 10 mg Tablet 10 mg PO DAILY oxybutynin chloride 5 mg Tablet 5 mg PO DAILY Problem Reconciliation Problems Reviewed?: Yes Patient Discharge Instructions ACTIVITY: Continue current activity DIET: continue same diet Patient Instructions: DI for Pressure Injuries, DI for Sepsis -- Adult, DI for Encephalopathy, Catheter-Associated Urinary Tract Infection Providers Primary Care Provider: Provider,Referral Admit Provider: Otis Flores Attending Provider: Otis Flores
[2023-10-12 07:33] LABS: Basophils % 0.4 % (0.1-2.0); Eosinophils # 0.2 K/mm3 (0.0-0.4); Eosinophils % 3.7 % (0.1-12.0); Hematocrit 28.1 % (42.0-52.0); Lymphocytes # 2.4 K/mm3 (0.7-4.5); Lymphocytes % 37.1 % (10-50); Mean Corpuscular Hemoglobin 32.7 pg (27.0-31.2); Mean Corpuscular Volume 102.3 fl (80-94); Mean Platelet Volume 8.4 fl (7.4-10.4); Monocytes # 0.5 K/mm3 (0.1-1.0); Monocytes % 7.3 % (1.7-9.3); Neutrophils # 3.3 K/mm3 (1.8-7.8); Neutrophils % 51.5 % (37.0-80.0); Platelet Count 310 K/mm3 (142-424); Red Blood Count 2.74 M/mm3 (4.60-6.20); Red Cell Distribution Width 13.5 % (11.5-17.5); White Blood Count 6.4 K/mm3 (4.8-10.8)
[2023-10-12] MEDS: PRO-STAT AWC 30ML LIQUID PACKET 30 ML PO (09:16)
[2023-10-12] MEDS: FINASTERIDE 5MG TABLET 5 MG PO (09:16)
[2023-10-12] MEDS: ENOXAPARIN 40MG/0.4ML SYRINGE 40 MG SQ (09:16)
[2023-10-12] MEDS: SODIUM CHLORIDE 0.9% 10ML VIAL 10 ML IV (09:17)
[2023-10-12] MEDS: OXYBUTYNIN 5MG TAB 5 MG PO (09:17)
[2023-10-12] MEDS: MEMANTINE 10MG TABLET 10 MG PO (09:17)
[2023-10-12] MEDS: SODIUM BICARBONATE 650MG TABLET 650 MG PO ×2 (09:17→12:39)
[2023-10-12] MEDS: PANTOPRAZOLE 40MG VIAL 40 MG IV (09:17)
--- NOTE | 2023-10-12 11:49 | DIET.NUTRFU ---
Provided handout on high protein shakes. plan is to take patient back home, additional calories and protein would be beneficial
--- NOTE | 2023-10-12 14:31 | SW/DCPLANNER ---
Addendum entered by Kendra Hanson 10/12/23 15:32: Shahla spoke w/ family and will admit under Hospice tomorrow at home. Original Note: Per MD patient/family have requested to discharge home w/ Hospice. Patient information has been faxed to Shahla yates/ [facility]. Family has requested that patient discharge home w/ Hospice to follow up.
[2023-10-12] MEDS: levoFLOXacin 750 MG TABLET PO (15:08)
--- NOTE | 2023-10-12 19:02 | PC.NURSE ---
Pt' s family was updated at 181. Pt will be transported soon by EMS to current residence. [address]
--- NOTE | 2023-10-12 20:44 | PC.NURSE ---
Addendum entered by Leslie Jasmine RN 10/12/23 20:59: A.J. notified patient is leaving with EMS now - verified address. Original Note: update Fer Howard, son, that we are still waiting on EMS but will notify family once EMS arrives for transfer.
== END 2023-10-12 20:57 | disposition hospice, home (50) | DRG 698 ==
LOC: ER 19:52 → 2ND 22:10
PROVIDERS: Nurse Practitioner Family; Admitting Provider Internal Medicine Adolescent Medicine; Emergency Provider Emergency Medicine; Visit Provider Internal Medicine Adolescent Medicine
DX: T83.518A Infection and inflammatory reaction due to other urinary catheter, initial encounter (principal); A41.9 Sepsis, unspecified organism; L89.223 Pressure ulcer of left hip, stage 3; E43 Unspecified severe protein-calorie malnutrition; R65.21 Severe sepsis with septic shock; G93.40 Encephalopathy, unspecified; N13.8 Other obstructive and reflux uropathy; I48.20 Chronic atrial fibrillation, unspecified; E87.20 Acidosis, unspecified; Y84.6 Urinary catheterization as the cause of abnormal reaction of the patient, or of later complication, without mention of misadventure at the time of the procedure; N40.1 Benign prostatic hyperplasia with lower urinary tract symptoms; F03.90 Unspecified dementia, unspecified severity, without behavioral disturbance, psychotic disturbance, mood disturbance, and anxiety; I10 Essential (primary) hypertension; E78.5 Hyperlipidemia, unspecified; D64.9 Anemia, unspecified; Z68.22 Body mass index [BMI] 22.0-22.9, adult; Z74.01 Bed confinement status; N40.0 Benign prostatic hyperplasia without lower urinary tract symptoms; R13.10 Dysphagia, unspecified
CPT/HCPCS: 36415; 51702; 70450; 71045; 80048; 80053; 80202; 81001; 82550; 82803; 83605; 83735; 85025; 86140; 87040; 87070; 87086; 87205; 87636; 93005; 97162; 97166; 99291; J1956; J2543; J3370

== ENCOUNTER 2025-04-04 14:45 | Outpatient (CLI) | payer MEDICARE, OTHER, SELFPAY ==
[2025-04-04 14:52] LABS: Microscopic, Urine URINE MICROSCOPIC (MICROSCOPIC)
[2025-04-04 16:10] LABS: Bilirubin,Urine Negative (Negative); Color,Urine YELLOW (Yellow); Glucose,Urine (UA) Negative (Negative); Ketones,Urine Negative (Negative); Leukocyte Esterase,Urine 3+ (Negative); PH,Urine 7.5 (5.0-8.5); Protein,Urine TRACE (Negative); Specific Gravity, Urine 1.010 (1.005-1.030); Urobilinogen,Urine 0.2 EU/dl (0.2)
[2025-04-04 17:19] LABS: RBC,Urine 20-50 #/hpf (0-3)
[2025-04-04 17:20] LABS: Bacteria,Urine 2+ /lpf
== END 2025-04-04 23:59 | disposition home or self-care (01) ==
LOC: LAB.DROPOF 14:46
PROVIDERS: PCP Nurse Practitioner Family; Visit Provider Nurse Practitioner Family
DX: N39.0 Urinary tract infection, site not specified (principal)
CPT/HCPCS: 81001; 87086; 87088